=== PATIENT | female | born 1945 | race Caucasian/White ===

== ENCOUNTER 2017-01-12 12:20 | Inpatient (IN) | payer OTHER ==
[~2017-01-12] VITALS: Ht 160 cm; Wt 112.8 kg
[2017-01-12] MEDS ORDERED: SODIUM CHLORIDE 0.9% 1000ML 1,000 ML IV STA (12:37)
[2017-01-12] MEDS ORDERED: OPTIRAY 320 IV PRN ×2 (12:45→21:15)
[2017-01-12] MEDS ORDERED: ALBUT/IPRATROP 3MG/0.5MG NEB 3 ML VIAL INH ONE (13:00)
[2017-01-12 13:04] LABS: BASO % 0.2 %; BASO ABS # 0.02 K/uL (0-0.2); COMPLETE YES; EOS % 0.5 %; HEMATOCRIT 43.2 % (37-47); IG% 0.1 %; LYMPH % 11.8 %; LYMPH ABS # 1.25 K/uL (1.2-3.4); MEAN CELL VOLUME 87.4 fL (80-100); MEAN CORPUSCULAR HEMOGLOBIN 28.9 pg (25-34); MEAN CORPUSCULAR HGB CONC 33.1 g/dl (32-36); MEAN PLATELET VOLUME 9.8 fL (7.4-10.4); MONO % 8.1 %; NEUT % 79.3 %; PLATELET COUNT 162 K/uL (130-400); RED BLOOD COUNT 4.94 M/uL (4.2-5.4); WHITE BLOOD COUNT 10.58 K/uL (4.8-10.8)
[2017-01-12 13:07] LABS: ISTAT CREATININE 0.8 mg/dl (0.6-1.3); ISTAT IONIZED CALCIUM 1.11 mmol/l (1.12-1.32)
[2017-01-12 13:19] VITALS: PULSE 71; O2SAT 97
[2017-01-12 13:23] LABS: BUN/CREATININE RATIO 17.1 (10-20); CALCIUM 8.9 mg/dl (8.5-10.1); CREATININE 0.94 mg/dl (0.60-1.20); POTASSIUM 3.9 mmol/L (3.5-5.1)
[2017-01-12 13:28] LABS: ALB/GLOB RATIO 0.7 (0.9-2); CKMB/CK RATIO 0.7 (0-3.0)
--- NOTE | 2017-01-12 13:52 | EMERGENCY ROOM VISIT NOTE ---
History Report prepared by Rakan: Romelia Charlton Under the Supervision of: Dr. Brandon Campos M.D. First contact with patient: 12:29 Chief Complaint: SOB Stated Complaint: NAUSEATED,DR REFERRED Nursing Triage Summary: Patient presented to PCP office yesteday after a day long history of generalized malaise, cough, and one episode of emesis. CXR done which showed "a spot." Patient presents today with fever, nausea, diarrhea, cough, and exertional SOB. Room air saturation upon arrival to room was 82%. Patient denies any chest pain. History of Present Illness The patient is a 71 year old female who presents to the Emergency Room with complaints of constant shortness of breath for the past few days. The patient went to her PCP yesterday for shortness of breath and fever. There was a shadow on chest x-ray and she was hypoxic so her PCP called today and advised her to come to the ED for further evaluation. The patient reports that she is also feeling weak and nauseated. She has not been eating and has been having intermittent diarrhea. The patient rates her pain as a 5/10 in severity. Source of History: patient Onset: a few days ago Position: chest (respiratory) Symptom Intensity: 5/10 Quality: other (shortness of breath) Timing: worsening Associated Symptoms: + fevers, + nausea, + diarrhea, + weakness Review of Systems See HPI for pertinent positives & negatives. A total of 10 systems reviewed and were otherwise negative. Past Medical & Surgical Medical Problems: (1) Diabetes mellitus (2) Hypertension Surgical Problems: (1) History of cholecystectomy Family History Diabetes mellitus Heart disease Hypertension Lung disease Social History Smoking Status: Never Smoker Smokeless Tobacco Use: No Alcohol Use: none Marital Status: Housing Status: lives with family Occupation Status: unemployed Current/Historical Medications Scheduled Aspirin (Aspirin Ec), 325 MG PO QAM Atorvastatin (Lipitor), 80 MG PO HS Carvedilol (Coreg), 6.25 MG PO BID Clopidogrel (Plavix), 75 MG PO QAM Digoxin (Digox), 375 MCG PO QAM Famotidine (Pepcid), 20 MG PO BID Fish Oil ([place]-3), 2 CAP PO BID Furosemide (Lasix), 80 MG PO QAM Insulin Human NPH (Novolin N), 50 UNITS SQ QAM Insulin Human NPH (Novolin N), 50 UNITS SQ HS Insulin Human Regular (Novolin R), 30 UNITS SQ QAM Insulin Human Regular (Novolin R), 30 UNITS SQ DAILYBD Isosorbide Mononitrate Ext Rel (Imdur Ext Rel), 60 MG PO QAM Lisinopril (Zestril), 20 MG PO QAM Lorazepam (Ativan), 1 MG PO BID Potassium Chloride (Micro-K Ext Rel), 10 MEQ PO QAM Sertraline (Zoloft), 50 MG PO BID Allergies Coded Allergies: Adhesives (Unverified Allergy, Severe, HIVES,RASH, 01/12/17) Amoxicillin (Unverified Allergy, Severe, HIVES, 01/12/17) Cephalexin (Unverified Allergy, Severe, HIVES, 01/12/17) Clarithromycin (Unverified Allergy, Severe, HIVES, 01/12/17) Clavulanic Acid (Unverified Allergy, Severe, HIVES, 01/12/17) Metaproterenol (Unverified Allergy, Severe, HIVES, 01/12/17) Physical Exam Vital Signs Date Time Temp Pulse Resp B/P (MAP) Pulse Ox O2 Delivery O2 Flow Rate FiO2 01/12/17 17:06 94 20 89 01/12/17 17:00 179/83 01/12/17 17:00 91 16 173/83 94 Room Air 01/12/17 16:58 84 01/12/17 16:36 79 26 94 01/12/17 16:31 172/69 01/12/17 16:06 80 20 93 01/12/17 16:01 176/63 01/12/17 15:40 81 29 96 01/12/17 15:31 175/57 01/12/17 15:10 86 30 93 01/12/17 15:05 84 29 93 01/12/17 15:01 188/72 01/12/17 14:35 86 23 92 01/12/17 14:31 200/66 01/12/17 14:05 84 28 99 01/12/17 14:00 188/77 01/12/17 13:55 75 27 99 01/12/17 13:37 190/79 01/12/17 13:25 71 29 99 01/12/17 13:20 72 22 99 01/12/17 13:19 71 27 97 Nasal Cannula 4.0 01/12/17 12:58 97 Nasal Cannula 4.0 01/12/17 12:58 82 Room Air 01/12/17 12:50 74 29 96 01/12/17 12:48 73 01/12/17 12:46 205/80 01/12/17 12:23 37.4 76 18 201/74 90 Room Air Physical Exam GENERAL: Patient is a healthy-appearing well-nourished elderly female. HEAD: Normocephalic atraumatic EYES: Ocular movements intact pupils equal and react to light OROPHARYNX mucous membranes are moist no exudates present no erythema or edema present NECK: Supple no nuchal rigidity CHEST: Good equal expansion LUNGS: Clear and equal to auscultation CARDIAC: Normal S1 and S2 ABDOMEN: Soft nontender no guarding BACK: No CVA tenderness EXTREMITIES: No pain upon palpation normal muscle strength in all groups no clubbing cyanosis or edema NEURO: Patient is following commands and answering questions appropriately. Alert and oriented x3 Cranial Nerves 2-12 grossly intact Medical Decision & Procedures ER Provider Diagnostic Interpretation: Radiology results as stated below per my review and radiologist interpretation: CHEST CTA for PULMONARY ARTERIES CT DOSE: 589.72 mGycm HISTORY: Chest pain dyspnea TECHNIQUE: Multiaxial CT images of the chest were performed following the intravenous administration of contrast to evaluate the pulmonary arteries. Maximal intensity projection images were also obtained. COMPARISON STUDY: None. FINDINGS: Thoracic aorta is normal in course and caliber. Only vasculature enhances appropriately. There is a consolidative left upper lobe infiltrate versus mass. This measures 8 x 4 cm in maximum dimension and extends to potentially involve the left hilum. There are several nonspecific pretracheal and periesophageal nodes. Several aortopulmonary window nodes are also present. Largest girish dimension is 1.3 cm. Patient is status post median sternotomy. IMPRESSION: 1. Study is negative for pulmonary embolus. 2. Consolidative left upper lobe infiltrate versus mass measuring 8 x 4 cm. 3. If This does not resolve with appropriate treatment, bronchoscopy would be indicated to exclude a neoplastic process. Electronically signed by: Wang Warren M.D. 01/12/2017 2:34 PM Dictated Date/Time: 01/12/2017 2:26 PM Laboratory Results 01/12/17 12:45 Red Blood Count 4.94, Mean Corpuscular Volume 87.4, Mean Corpuscular Hemoglobin 28.9, Mean Corpuscular Hemoglobin Concent 33.1, Mean Platelet Volume 9.8, Neutrophils (%) (Auto) 79.3, Lymphocytes (%) (Auto) 11.8, Monocytes (%) (Auto) 8.1, Eosinophils (%) (Auto) 0.5, Basophils (%) (Auto) 0.2, Neutrophils # (Auto) 8.39, Lymphocytes # (Auto) 1.25, Monocytes # (Auto) 0.86, Eosinophils # (Auto) 0.05, Basophils # (Auto) 0.02 01/12/17 12:45 Test 01/12/17 12:45 01/12/17 12:54 01/12/17 15:10 White Blood Count 10.58 K/uL (4.8-10.8) Red Blood Count 4.94 M/uL (4.2-5.4) Hemoglobin 14.3 g/dL (12.0-16.0) Hematocrit 43.2 % (37-47) Mean Corpuscular Volume 87.4 fL (80-100) Mean Corpuscular Hemoglobin 28.9 pg (25-34) Mean Corpuscular Hemoglobin Concent 33.1 g/dl (32-36) Platelet Count 162 K/uL (130-400) Mean Platelet Volume 9.8 fL (7.4-10.4) Neutrophils (%) (Auto) 79.3 % Lymphocytes (%) (Auto) 11.8 % Monocytes (%) (Auto) 8.1 % Eosinophils (%) (Auto) 0.5 % Basophils (%) (Auto) 0.2 % Neutrophils # (Auto) 8.39 K/uL (1.4-6.5) Lymphocytes # (Auto) 1.25 K/uL (1.2-3.4) Monocytes # (Auto) 0.86 K/uL (0.11-0.59) Eosinophils # (Auto) 0.05 K/uL (0-0.5) Basophils # (Auto) 0.02 K/uL (0-0.2) RDW Standard Deviation 48.5 fL (36.4-46.3) RDW Coefficient of Variation 15.0 % (11.5-14.5) Immature Granulocyte % (Auto) 0.1 % Immature Granulocyte # (Auto) 0.01 K/uL (0.00-0.02) Est Creatinine Clear Calc Drug Dose 62.5 ml/min Estimated GFR () 69.8 Estimated GFR (Non- 60.2 BUN/Creatinine Ratio 17.1 (10-20) Calcium Level 8.9 mg/dl (8.5-10.1) Total Bilirubin 1.1 mg/dl (0.2-1) Aspartate Amino Transf (AST/SGOT) 28 U/L (15-37) Alanine Aminotransferase (ALT/SGPT) 28 U/L (12-78) Alkaline Phosphatase 68 U/L (45-117) Total Creatine Kinase 445 U/L (26-192) Creatine Kinase MB 3.0 ng/ml (0.5-3.6) Creatine Kinase MB Ratio 0.7 (0-3.0) Troponin I 0.039 ng/ml (0-0.045) Total Protein 7.3 gm/dl (6.4-8.2) Albumin 3.0 gm/dl (3.4-5.0) Globulin 4.3 gm/dl (2.5-4.0) Albumin/Globulin Ratio 0.7 (0.9-2) Bedside Hemoglobin 15.0 g/dl (12.0-16.0) Bedside Hematocrit 44 % (37-47) Bedside Sodium 136 mEq/L (135-144) Bedside Potassium 3.9 mEq/L (3.3-5.0) Bedside Chloride 96 mEq/L (101-112) Bedside Total CO2 30 mEq/l (24-31) Anion Gap 15.0 mmol/L (16-25) Bedside Blood Urea Nitrogen 18 mg/dl (7-18) Bedside Creatinine 0.8 mg/dl (0.6-1.3) Bedside Glucose (other) 308 mg/dl (70-99) Bedside Ionized Calcium (Mark) 1.11 mmol/l (1.12-1.32) Urine Color YELLOW Urine Appearance CLEAR (CLEAR) Urine pH 6.0 (4.5-7.5) Urine Specific Bliss 1.020 (1.000-1.030) Urine Protein 3+ (NEG) Urine Glucose (UA) 3+ (NEG) Urine Ketones NEG (NEG) Urine Occult Blood 2+ (NEG) Urine Nitrite NEG (NEG) Urine Bilirubin NEG (NEG) Urine Urobilinogen NEG (NEG) Urine Leukocyte Esterase NEG (NEG) Urine WBC (Auto) 0 /hpf (0-5) Urine RBC (Auto) 0-4 /hpf (0-4) Urine Hyaline Casts (Auto) 0 /lpf (0-5) Urine Epithelial Cells (Auto) 10-20 /lpf (0-5) Urine Bacteria (Auto) NEG (NEG) Labs reviewed by ED physician. Medications Administered Medications (Trade) Dose Ordered Sig/Alfredito Route Start Time Stop Time Status Last Admin Dose Admin Sodium Chloride 1,000 ml @ 999 mls/hr Q1H1M STAT IV 01/12/17 12:37 01/12/17 13:39 DC 01/12/17 13:04 999 MLS/HR Albuterol/ Ipratropium (Duoneb) 12 ml ONE ONCE INH 01/12/17 13:00 01/12/17 13:01 DC 01/12/17 13:18 12 ML Piperacillin Sod/ Tazobactam Sod (Zosyn Iv) 4.5 gm NOW STAT IV 01/12/17 14:43 01/12/17 14:44 DC 01/12/17 15:25 4.5 GM Levofloxacin (Levaquin / D5W) 750 mg NOW STAT IV 01/12/17 14:43 01/12/17 14:44 DC 01/12/17 15:52 750 MG ECG Indication: SOB/dyspnea Rate (beats per minute): 78 Rhythm: sinus rhythm Findings: PVC, RBBB, no acute ischemic change ED Course 1229: Past medical records reviewed. The patient was evaluated in room C2B. A complete history and physical examination was performed. 1237: NSS 1000 ml @ 999 mls/hr IV 1300: Duoneb 12 ml INH 1443: Levofloxacin 750 mg IV, Zosyn 4.5 gm IV 1507: I spoke with Dr. Keshia Low. We discussed the patient's case. The patient will be evaluated by the [facility] for further management. 1515: I reassessed the patient at this time. She is resting comfortably. I discussed the results and treatment plan with the patient and her family. I answered all pertaining questions that they had. They expressed understanding and verbalized agreement. Medical Decision Differential diagnosis: Etiologies such as infections, reactive airway disease, pneumonia, pneumothorax , COPD, CHF, cardiac ischemia, pulmonary embolism, musculoskeletal, gastrointestinal, as well as others were entertained. Medication Reconciliation: I attest that I have personally reviewed the patient' s current medication list. Blood Pressure Screening: Patient was found to have an elevated blood pressure and was referred to their primary care doctor for recheck and further treatment. This is a 71-year-old female who was sent in by her primary care physician for a CAT scan of the chest. CAT scan is concerning for what appears to be pneumonia versus a mass. The patient is hypoxic therefore she was given an hour -long breathing treatment started on antibiotics she was pancultured up. I did discuss the case with the hospitalist service who agreed to admit the patient. Patient was in agreement with the treatment plan. Consults Time Called: 1505 Consulting Physician: Dr. Keshia Low Returned Call: [address] Keshia Low. We discussed the patient's case. The patient will be evaluated by the [facility] for further management. Impression Primary Impression: Hypoxia Additional Impression: Lung mass Scribe Attestation The scribe's documentation has been prepared under my direction and personally reviewed by me in its entirety. I confirm that the note above accurately reflects all work, treatment, procedures, and medical decision making performed by me. Departure Information Dispostion Being Evaluated By Hospitalist Referrals Adam Varela MD (PCP) Patient Instructions My [facility] Health Problem Qualifiers
--- NOTE | 2017-01-12 13:52 | EMERGENCY ROOM VISIT NOTE ---
History Report prepared by Rakan: Romelia Charlton Under the Supervision of: Dr. Brandon Campos M.D. First contact with patient: 12:29 Chief Complaint: NAUSEA Stated Complaint: NAUSEATED,DR REFERRED Nursing Triage Summary: Patient presented to PCP office yesteday after a day long history of generalized malaise, cough, and one episode of emesis. CXR done which showed "a spot." Patient presents today with fever, nausea, diarrhea, cough, and exertional SOB. Room air saturation upon arrival to room was 82%. Patient denies any chest pain. History of Present Illness The patient is a 71 year old female who presents to the Emergency Room with complaints of Review of Systems See HPI for pertinent positives & negatives. A total of 10 systems reviewed and were otherwise negative. Past Medical & Surgical Medical Problems: (1) Diabetes mellitus (2) Hypertension Surgical Problems: (1) History of cholecystectomy Social History Smoking Status: Never Smoker Current/Historical Medications Scheduled Aspirin (Aspirin Ec), 325 MG PO QAM Atorvastatin (Lipitor), 80 MG PO HS Carvedilol (Coreg), 6.25 MG PO BID Clopidogrel (Plavix), 75 MG PO QAM Digoxin (Digox), 375 MCG PO QAM Famotidine (Pepcid), 20 MG PO BID Fish Oil ([place]-3), 2 CAP PO BID Furosemide (Lasix), 80 MG PO QAM Insulin Human NPH (Novolin N), 50 UNITS SQ QAM Insulin Human NPH (Novolin N), 50 UNITS SQ HS Insulin Human Regular (Novolin R), 30 UNITS SQ QAM Insulin Human Regular (Novolin R), 30 UNITS SQ DAILYBD Isosorbide Mononitrate Ext Rel (Imdur Ext Rel), 60 MG PO QAM Lisinopril (Zestril), 20 MG PO QAM Lorazepam (Ativan), 1 MG PO BID Potassium Chloride (Micro-K Ext Rel), 10 MEQ PO QAM Sertraline (Zoloft), 50 MG PO BID Allergies Coded Allergies: Adhesives (Unverified Allergy, Severe, HIVES,RASH, 01/12/17) Amoxicillin (Unverified Allergy, Severe, HIVES, 01/12/17) Cephalexin (Unverified Allergy, Severe, HIVES, 01/12/17) Clarithromycin (Unverified Allergy, Severe, HIVES, 01/12/17) Clavulanic Acid (Unverified Allergy, Severe, HIVES, 01/12/17) Metaproterenol (Unverified Allergy, Severe, HIVES, 01/12/17) Physical Exam Vital Signs Date Time Temp Pulse Resp B/P (MAP) Pulse Ox O2 Delivery O2 Flow Rate FiO2 01/12/17 13:20 72 22 99 01/12/17 13:19 71 27 97 Nasal Cannula 4.0 01/12/17 12:58 97 Nasal Cannula 4.0 01/12/17 12:58 82 Room Air 01/12/17 12:50 74 29 96 01/12/17 12:48 73 01/12/17 12:46 205/80 01/12/17 12:23 37.4 76 18 201/74 90 Room Air Physical Exam GENERAL: Patient is a healthy-appearing well-nourished elderly female. HEAD: Normocephalic atraumatic EYES: Ocular movements intact pupils equal and react to light OROPHARYNX mucous membranes are moist no exudates present no erythema or edema present NECK: Supple no nuchal rigidity CHEST: Good equal expansion LUNGS: Clear and equal to auscultation CARDIAC: Normal S1 and S2 ABDOMEN: Soft nontender no guarding BACK: No CVA tenderness EXTREMITIES: No pain upon palpation normal muscle strength in all groups no clubbing cyanosis or edema NEURO: Patient is following commands and answering questions appropriately. Alert and oriented x3 Cranial Nerves 2-12 grossly intact Medical Decision & Procedures Laboratory Results 01/12/17 12:45 Red Blood Count 4.94, Mean Corpuscular Volume 87.4, Mean Corpuscular Hemoglobin 28.9, Mean Corpuscular Hemoglobin Concent 33.1, Mean Platelet Volume 9.8, Neutrophils (%) (Auto) 79.3, Lymphocytes (%) (Auto) 11.8, Monocytes (%) (Auto) 8.1, Eosinophils (%) (Auto) 0.5, Basophils (%) (Auto) 0.2, Neutrophils # (Auto) 8.39, Lymphocytes # (Auto) 1.25, Monocytes # (Auto) 0.86, Eosinophils # (Auto) 0.05, Basophils # (Auto) 0.02 01/12/17 12:45 Test 01/12/17 12:45 01/12/17 12:54 White Blood Count 10.58 K/uL (4.8-10.8) Red Blood Count 4.94 M/uL (4.2-5.4) Hemoglobin 14.3 g/dL (12.0-16.0) Hematocrit 43.2 % (37-47) Mean Corpuscular Volume 87.4 fL (80-100) Mean Corpuscular Hemoglobin 28.9 pg (25-34) Mean Corpuscular Hemoglobin Concent 33.1 g/dl (32-36) Platelet Count 162 K/uL (130-400) Mean Platelet Volume 9.8 fL (7.4-10.4) Neutrophils (%) (Auto) 79.3 % Lymphocytes (%) (Auto) 11.8 % Monocytes (%) (Auto) 8.1 % Eosinophils (%) (Auto) 0.5 % Basophils (%) (Auto) 0.2 % Neutrophils # (Auto) 8.39 K/uL (1.4-6.5) Lymphocytes # (Auto) 1.25 K/uL (1.2-3.4) Monocytes # (Auto) 0.86 K/uL (0.11-0.59) Eosinophils # (Auto) 0.05 K/uL (0-0.5) Basophils # (Auto) 0.02 K/uL (0-0.2) RDW Standard Deviation 48.5 fL (36.4-46.3) RDW Coefficient of Variation 15.0 % (11.5-14.5) Immature Granulocyte % (Auto) 0.1 % Immature Granulocyte # (Auto) 0.01 K/uL (0.00-0.02) Est Creatinine Clear Calc Drug Dose 62.5 ml/min Estimated GFR () 69.8 Estimated GFR (Non- 60.2 BUN/Creatinine Ratio 17.1 (10-20) Calcium Level 8.9 mg/dl (8.5-10.1) Total Bilirubin 1.1 mg/dl (0.2-1) Aspartate Amino Transf (AST/SGOT) 28 U/L (15-37) Alanine Aminotransferase (ALT/SGPT) 28 U/L (12-78) Alkaline Phosphatase 68 U/L (45-117) Total Creatine Kinase 445 U/L (26-192) Creatine Kinase MB 3.0 ng/ml (0.5-3.6) Creatine Kinase MB Ratio 0.7 (0-3.0) Troponin I 0.039 ng/ml (0-0.045) Total Protein 7.3 gm/dl (6.4-8.2) Albumin 3.0 gm/dl (3.4-5.0) Globulin 4.3 gm/dl (2.5-4.0) Albumin/Globulin Ratio 0.7 (0.9-2) Bedside Hemoglobin 15.0 g/dl (12.0-16.0) Bedside Hematocrit 44 % (37-47) Bedside Sodium 136 mEq/L (135-144) Bedside Potassium 3.9 mEq/L (3.3-5.0) Bedside Chloride 96 mEq/L (101-112) Bedside Total CO2 30 mEq/l (24-31) Anion Gap 15.0 mmol/L (16-25) Bedside Blood Urea Nitrogen 18 mg/dl (7-18) Bedside Creatinine 0.8 mg/dl (0.6-1.3) Bedside Glucose (other) 308 mg/dl (70-99) Bedside Ionized Calcium (Mark) 1.11 mmol/l (1.12-1.32) Labs reviewed by ED physician. Medications Administered Medications (Trade) Dose Ordered Sig/Alfredito Route Start Time Stop Time Status Last Admin Dose Admin Sodium Chloride 1,000 ml @ 999 mls/hr Q1H1M STAT IV 01/12/17 12:37 01/12/17 13:39 DC 01/12/17 13:04 999 MLS/HR Albuterol/ Ipratropium (Duoneb) 12 ml ONE ONCE INH 01/12/17 13:00 01/12/17 13:01 DC 01/12/17 13:18 12 ML ED Course 1229: Past medical records reviewed. The patient was evaluated in room C2B. A complete history and physical examination was performed. Departure Information Referrals Adam Varela MD (PCP) Patient Instructions My [facility]
[2017-01-12] MEDS ORDERED: POTA10CA28 PO (13:53)
[2017-01-12] MEDS ORDERED: DIGO0.2519 PO (13:53)
[2017-01-12] MEDS ORDERED: OMEG10007 PO (13:53)
[2017-01-12] MEDS ORDERED: ISOS60TA25 PO (13:53)
[2017-01-12] MEDS ORDERED: FRS/80 PO (13:53)
[2017-01-12] MEDS ORDERED: CARV6.252 PO (13:53)
[2017-01-12] MEDS ORDERED: FAMO20TA11 PO (13:53)
[2017-01-12] MEDS ORDERED: CLOP1TAB15 PO (13:53)
[2017-01-12] MEDS ORDERED: NVLNI SQ ×2 (13:53)
[2017-01-12] MEDS ORDERED: RRNOVOLINR SQ (13:53)
[2017-01-12] MEDS ORDERED: ATOR-26 PO (13:53)
[2017-01-12] MEDS ORDERED: ASPI325T39 PO (13:53)
[2017-01-12] MEDS ORDERED: ATV/1 PO (13:53)
[2017-01-12] MEDS ORDERED: LISI-725 PO (13:53)
[2017-01-12] MEDS ORDERED: NVLRPUC SQ (13:53)
[2017-01-12] MEDS ORDERED: SERT50TA PO (13:53)
--- NOTE | 2017-01-12 14:35 | DIAGNOSTIC IMAGING REPORT ---
CHEST CTA for PULMONARY ARTERIES CT DOSE: 589.72 mGycm HISTORY: Chest pain dyspnea TECHNIQUE: Multiaxial CT images of the chest were performed following the intravenous administration of contrast to evaluate the pulmonary arteries. Maximal intensity projection images were also obtained. COMPARISON STUDY: None. FINDINGS: Thoracic aorta is normal in course and caliber. Only vasculature enhances appropriately. There is a consolidative left upper lobe infiltrate versus mass. This measures 8 x 4 cm in maximum dimension and extends to potentially involve the left hilum. There are several nonspecific pretracheal and periesophageal nodes. Several aortopulmonary window nodes are also present. Largest girish dimension is 1.3 cm. Patient is status post median sternotomy. IMPRESSION: 1. Study is negative for pulmonary embolus. 2. Consolidative left upper lobe infiltrate versus mass measuring 8 x 4 cm. 3. If This does not resolve with appropriate treatment, bronchoscopy would be indicated to exclude a neoplastic process. Electronically signed by: Wang Warren M.D. 01/12/2017 2:34 PM Dictated Date/Time: 01/12/2017 2:26 PM
[2017-01-12] MEDS ORDERED: PIPERACILLIN/TAZOBACTAM 4.5 GM/100ML D5W IV STA (14:43)
[2017-01-12] MEDS ORDERED: LEVAQUIN 750MG / 150ML D5W IV STA (14:43)
[2017-01-12 15:21] LABS: URINE APPEARANCE CLEAR (CLEAR); URINE BILIRUBIN NEG (NEG); URINE COLOR YELLOW; URINE NITRITE NEG (NEG); UROBILINOGEN NEG (NEG)
[2017-01-12 15:23] LABS: MANUAL MICROSCOPIC REQUIRED? NO; REVIEW REQ? NO
[2017-01-12] MEDS ORDERED: ACETAMINOPHEN 500 MG TAB PO STA (20:29)
[2017-01-12] MEDS ORDERED: ONDANSETRON INJ 2 MG/ML 2 ML VIAL IV PRN (20:30)
[2017-01-12] MEDS ORDERED: ALUMINUM/MAGNESIUM/SIMETH (MAALOX MAX) 30 ML UDC PO PRN (20:30)
[2017-01-12] MEDS ORDERED: MAGNESIUM HYDROXIDE SUSP 30 ML UDC PO PRN (20:30)
[2017-01-12] MEDS ORDERED: ACETAMINOPHEN 500 MG TAB PO ONE (20:33)
[2017-01-12 20:48] VITALS: O2SAT 96; BMI 41.8
[2017-01-12] MEDS ORDERED: LEVALBUTEROL/IPRATROPIUM NEB INH SCH (21:00)
[2017-01-12] MEDS ORDERED: VANCOMYCIN INJ 1,000 MG in SODIUM CHLORIDE 0.9% 250ML 250 ML IV SCH (21:00)
--- NOTE | 2017-01-12 21:04 | History and Physical ---
History & Physical Date & Time of Service: Jan 12, 2017 at 20:41 Chief Complaint: Nauseated,Dr Referred Primary Care Physician: Adam Varela MD History of Present Illness Source: patient, family This patient is a pleasant 71-year-old female that presents emergency department today from her primary care physician's office with complaints of fever, nausea, shortness of breath and cough that has been going on and getting progressively worse over the last 5 days. The patient denies any known history of pulmonary disease. She does note that her has been sick with a cough. She became fairly acutely ill 5 days ago. She is now having difficulty with ambulation with a shortness of breath. She did not take her temperature at home. The patient is also complaining of diarrhea that is watery. She denies any blood in her stool. She is complaining of some intermittent right upper quadrant abdominal pain that has been there for several weeks. She has not had any vomiting. She does have a very poor appetite. In the emergency department, CT of the chest was performed and shows a large left upper lobe infiltrate versus mass measuring 8 x 4 cm Past Medical/Surgical History Medical Problems: (1) Diabetes mellitus Status: Chronic (2) Hypertension Status: Chronic Coronary artery disease status post CABG in 1999. Patient also has cardiac stents. Frequent falls over the last several months Status post cholecystectomy Surgical Problems: (1) History of cholecystectomy Status: Resolved Family History Diabetes mellitus Heart disease Hypertension Lung disease Social History Smoking Status: Never Smoker Smokeless Tobacco Use: No Marital Status: Housing status: lives with family Occupational Status: unemployed Allergies Coded Allergies: Adhesives (Verified Allergy, Severe, HIVES,RASH, 01/12/17) Amoxicillin (Verified Allergy, Severe, HIVES, 01/12/17) Cephalexin (Verified Allergy, Severe, HIVES, 01/12/17) Clarithromycin (Verified Allergy, Severe, HIVES, 01/12/17) Clavulanic Acid (Verified Allergy, Severe, HIVES, 01/12/17) Metaproterenol (Verified Allergy, Severe, HIVES, 01/12/17) Home Medications Scheduled Aspirin (Aspirin Ec), 325 MG PO QAM Atorvastatin (Lipitor), 80 MG PO HS Carvedilol (Coreg), 6.25 MG PO BID Clopidogrel (Plavix), 75 MG PO QAM Digoxin (Digox), 375 MCG PO QAM Famotidine (Pepcid), 20 MG PO BID Fish Oil (Dawson-3), 2 CAP PO BID Furosemide (Lasix), 80 MG PO QAM Insulin Human NPH (Novolin N), 50 UNITS SQ QAM Insulin Human NPH (Novolin N), 50 UNITS SQ HS Insulin Human Regular (Novolin R), 30 UNITS SQ QAM Insulin Human Regular (Novolin R), 30 UNITS SQ DAILYBD Isosorbide Mononitrate Ext Rel (Imdur Ext Rel), 60 MG PO QAM Lisinopril (Zestril), 20 MG PO QAM Lorazepam (Ativan), 1 MG PO BID Potassium Chloride (Micro-K Ext Rel), 10 MEQ PO QAM Sertraline (Zoloft), 50 MG PO BID Review of Systems 10 system review performed and negative unless noted in HPI or below Physical Exam Vital Signs Date Time Temp Pulse Resp B/P (MAP) Pulse Ox O2 Delivery O2 Flow Rate FiO2 01/12/17 19:41 73 36 96 01/12/17 19:31 187/69 01/12/17 19:11 75 20 95 01/12/17 19:01 168/62 01/12/17 18:41 83 35 95 01/12/17 18:31 171/74 01/12/17 18:11 84 25 94 01/12/17 18:01 200/84 01/12/17 17:41 76 29 94 01/12/17 17:31 205/67 01/12/17 17:11 80 27 01/12/17 17:06 94 20 89 01/12/17 17:00 179/83 01/12/17 17:00 91 16 173/83 94 Room Air 01/12/17 16:58 84 01/12/17 16:36 79 26 94 01/12/17 16:31 172/69 01/12/17 16:06 80 20 93 01/12/17 16:01 176/63 01/12/17 15:40 81 29 96 01/12/17 15:31 175/57 01/12/17 15:10 86 30 93 01/12/17 15:05 84 29 93 01/12/17 15:01 188/72 01/12/17 14:35 86 23 92 01/12/17 14:31 200/66 01/12/17 14:05 84 28 99 01/12/17 14:00 188/77 01/12/17 13:55 75 27 99 01/12/17 13:37 190/79 01/12/17 13:25 71 29 99 01/12/17 13:20 72 22 99 01/12/17 13:19 71 27 97 Nasal Cannula 4.0 01/12/17 12:58 97 Nasal Cannula 4.0 01/12/17 12:58 82 Room Air 01/12/17 12:50 74 29 96 01/12/17 12:48 73 01/12/17 12:46 205/80 01/12/17 12:23 37.4 76 18 201/74 90 Room Air General Appearance: + pertinent finding (acutely ill in appearance.) Head: normocephalic Eyes: EOMI ENT: + pertinent finding (oral mucosa dry.) Neck: no JVD Respiratory/Chest: + pertinent finding (few rhonchi noted the left upper lung perez. Otherwise clear. Positive tachypnea.) Cardiovascular: + tachycardia (occasionally irregular.) Abdomen/GI: normal bowel sounds, soft, + pertinent finding (ventral hernia noted. Reducible and nontender. Mild tenderness to deep palpation in the right upper quadrant without any guarding or rebound. Negative Hernandez sign.) Extremities/Musculoskelatal: + pertinent finding (trace pitting edema in the lower extremities bilaterally. No erythema, tenderness or warmth appreciated.) Neurologic/Psych: no motor/sensory deficits, oriented x 3 Skin: warm/dry, + pertinent finding (skin is warm to touch. Erythematous areas noted without odor in the skin folds) Diagnostics Laboratory Results Results Past 24 Hours Test 01/12/17 12:45 01/12/17 12:54 01/12/17 15:10 Range/Units White Blood Count 10.58 4.8-10.8 K/uL Red Blood Count 4.94 4.2-5.4 M/uL Hemoglobin 14.3 12.0-16.0 g/dL Hematocrit 43.2 37-47 % Mean Corpuscular Volume 87.4 80-100 fL Mean Corpuscular Hemoglobin 28.9 25-34 pg Mean Corpuscular Hemoglobin Concent 33.1 32-36 g/dl Platelet Count 162 130-400 K/uL Mean Platelet Volume 9.8 7.4-10.4 fL Neutrophils (%) (Auto) 79.3 % Lymphocytes (%) (Auto) 11.8 % Monocytes (%) (Auto) 8.1 % Eosinophils (%) (Auto) 0.5 % Basophils (%) (Auto) 0.2 % Neutrophils # (Auto) 8.39 1.4-6.5 K/uL Lymphocytes # (Auto) 1.25 1.2-3.4 K/uL Monocytes # (Auto) 0.86 0.11-0.59 K/uL Eosinophils # (Auto) 0.05 0-0.5 K/uL Basophils # (Auto) 0.02 0-0.2 K/uL RDW Standard Deviation 48.5 36.4-46.3 fL RDW Coefficient of Variation 15.0 11.5-14.5 % Immature Granulocyte % (Auto) 0.1 % Immature Granulocyte # (Auto) 0.01 0.00-0.02 K/uL Sodium Level 136 136-145 mmol/L Potassium Level 3.9 3.5-5.1 mmol/L Chloride Level 100 98-107 mmol/L Carbon Dioxide Level 28 21-32 mmol/L Anion Gap 8.0 15.0 16-25 mmol/L Blood Urea Nitrogen 16 7-18 mg/dl Creatinine 0.94 0.60-1.20 mg/dl Est Creatinine Clear Calc Drug Dose 62.5 ml/min Estimated GFR () 69.8 Estimated GFR (Non- 60.2 BUN/Creatinine Ratio 17.1 10-20 Random Glucose 300 70-99 mg/dl Calcium Level 8.9 8.5-10.1 mg/dl Total Bilirubin 1.1 0.2-1 mg/dl Aspartate Amino Transf (AST/SGOT) 28 15-37 U/L Alanine Aminotransferase (ALT/SGPT) 28 12-78 U/L Alkaline Phosphatase 68 45-117 U/L Total Creatine Kinase 445 26-192 U/L Creatine Kinase MB 3.0 0.5-3.6 ng/ml Creatine Kinase MB Ratio 0.7 0-3.0 Troponin I 0.039 0-0.045 ng/ml Total Protein 7.3 6.4-8.2 gm/dl Albumin 3.0 3.4-5.0 gm/dl Globulin 4.3 2.5-4.0 gm/dl Albumin/Globulin Ratio 0.7 0.9-2 Bedside Hemoglobin 15.0 12.0-16.0 g/dl Bedside Hematocrit 44 37-47 % Bedside Sodium 136 135-144 mEq/L Bedside Potassium 3.9 3.3-5.0 mEq/L Bedside Chloride 96 101-112 mEq/L Bedside Total CO2 30 24-31 mEq/l Bedside Blood Urea Nitrogen 18 7-18 mg/dl Bedside Creatinine 0.8 0.6-1.3 mg/dl Bedside Glucose (other) 308 70-99 mg/dl Bedside Ionized Calcium (Mark) 1.11 1.12-1.32 mmol/l Urine Color YELLOW Urine Appearance CLEAR CLEAR Urine pH 6.0 4.5-7.5 Urine Specific [place] 1.020 1.000-1.030 Urine Protein 3+ NEG Urine Glucose (UA) 3+ NEG Urine Ketones NEG NEG Urine Occult Blood 2+ NEG Urine Nitrite NEG NEG Urine Bilirubin NEG NEG Urine Urobilinogen NEG NEG Urine Leukocyte Esterase NEG NEG Urine WBC (Auto) 0 0-5 /hpf Urine RBC (Auto) 0-4 0-4 /hpf Urine Hyaline Casts (Auto) 0 0-5 /lpf Urine Epithelial Cells (Auto) 10-20 0-5 /lpf Urine Bacteria (Auto) NEG NEG Microbiology Results 01/12/17 Blood Culture, Received Pending 01/12/17 Blood Culture, Received Pending Diagnostic Radiology Patient Name: ANIKA ALMODOVAR Unit Number: [id number] Dictated: 01/12/171425 Transcribed: 01/12/17 142 MS Printed Date/Time: [~ rep prt dt]/[~ rep prt tm] [~ rep ct labl] - [~ rep ct ivnm] [facility] [place] [address] Dictated: 01/12/171425 Transcribed: 01/12/17 1426 MS Printed Date/Time: [~ rep prt dt]/[~ rep prt tm] [~ rep ct labl] - [~ rep ct ivnm] Patient: ANIKA ALMODOVAR Address1: [address] [place] [address] Rec: [id number] Address2: Acct ID: [id number] [facility] Zip: [place] [address] Date: 1945 Sex: F Room/Bed: Ref Phy: Adam Varela MD [place]: [facility] Att Phy: Report #: [id number] Robyn Phy: Adam Varela MD Test: CXPEA Admit Phy: Agriculture Scientist: EVANGELISTA Interpreting Phy: Wang Warren M.D. Diagnosis: NAUSEATED,DR REFERRED Ordering Phy: Brandon Campos MD Service Date: 01/12/17 Admit Date: 01/12/17 MNE: [id number] CONF: DICTATED BY: Wang Warren M.D.]] CC: Adam Varela MD Finnerty, Kevin M., MD Endcc: [~ rep ct add3]] CHEST CTA for PULMONARY ARTERIES CT DOSE: 589.72 mGycm HISTORY: Chest pain dyspnea TECHNIQUE: Multiaxial CT images of the chest were performed following the intravenous administration of contrast to evaluate the pulmonary arteries. Maximal intensity projection images were also obtained. COMPARISON STUDY: None. FINDINGS: Thoracic aorta is normal in course and caliber. Only vasculature enhances appropriately. There is a consolidative left upper lobe infiltrate versus mass. This measures 8 x 4 cm in maximum dimension and extends to potentially involve the left hilum. There are several nonspecific pretracheal and periesophageal nodes. Several aortopulmonary window nodes are also present. Largest girish dimension is 1.3 cm. Patient is status post median sternotomy. IMPRESSION: 1. Study is negative for pulmonary embolus. 2. Consolidative left upper lobe infiltrate versus mass measuring 8 x 4 cm. 3. If This does not resolve with appropriate treatment, bronchoscopy would be indicated to exclude a neoplastic process. Electronically signed by: Wang Warren M.D. 01/12/2017 2:34 PM Dictated Date/Time: 01/12/2017 2:26 PM The status of this report is Signed. Draft = Not yet reviewed or approved by Radiologist. Signed = Reviewed and approved by Radiologist. <AttendingPhy></AttendingPhy> <FamilyPhy>Adam Varela MD</FamilyPhy> < PrimaryPhy>Adam Varela MD</PrimaryPhy> <UnitNumber>[id number]</UnitNumber> <VisitNumber>[id number]</VisitNumber> <PatientName>NISHIANIKA</PatientName> <DateOfBirth>1945</DateOfBirth> <Location>[facility]</Location> <ServiceDate></ServiceDate> <MNE>ESINDI</MNE> <OrderingPhy>Brandon Campos MD</ OrderingPhy> <OrderingPhyMNE>f rep ord dr navarro</OrderingPhyMNE> <DictatingPhyMNE> f rep dict dr navarro</DictatingPhyMNE> <CCListMNE>f rep ct brycee</CCListMNE> < AdmittingPhyMNE>f pt admit dr navarro</AdmittingPhyMNE> <AttendingPhyMNE>f pt attend dr navarro</AttendingPhyMNE> <ConsultingPhyMNE>f pt consult dr navarro</ConsultingPhyMNE> <FamilyPhyMNE>f pt fam dr navarro</FamilyPhyMNE> <OtherPhyMNE>f pt other dr navarro</OtherPhyMNE> < PrimaryPhyMNE>f pt prim care dr navarro</PrimaryPhyMNE> <ReferringPhyMNE>f pt referring dr anvarro</ReferringPhyMNE> EKG Normal sinus rhythm Rate 75 bpm Right bundle branch block noted Q waves in the inferior leads No prior for comparison Impression Assessment and Plan 71-year-old female presents to the emergency department with complaints of cough , fever, shortness of breath, nausea, abdominal pain and diarrhea. Imaging in the emergency department reveals an 8 x 4 cm infiltrate versus mass in the left upper lobe. Patient was treated with broad-spectrum antibiotics and IV fluids in the ED Acute hypoxic respiratory failure-? possible community acquired PNA with questionable underlying mass -Admit to telemetry -Continue levaquin and zosyn -Add Vancomycin -Xopenex/Atrovent nebs q 6 h -tylenol prn -NS @ 200 cc/hr x 1 liter then maintenance IVF -f/u blood cx -sputum cx -pulmonary consult -ID consult -follow CBC ?Abdominal pain nausea and diarrhea -stool cx, c diff sent -CT abd/pelvis tomorrow as pt already received IV dye with CTA today-->ordered Coronary artery disease-no signs of angina -Continue Coreg 6.25 mg twice daily, aspirin 325 mg daily, Lipitor 80 mg daily, Plavix 75 mg daily, lisinopril 20 mg daily, Imdur ER 60 mg daily ?A fib -Continue Digoxin 375 mcg daily diabetes mellitus -follow BSGs AC, HS and with meals -insulin sliding scale -check HgbA1C Cori dermatitis -Nystatin powder BID to skin folds Depression -Continue Zoloft 50 mg BID DVT prophylaxis -Lovenox 40 mg subQ daily -TEDS, SCDs CODE STATUS -LEVEL I FULL CODE This chart was completed in part utilizing Appear Speech Voice Recognition software. Attempts were made to minimize the grammatical errors, random word insertions, pronoun errors and incomplete sentences. Any formal questions or concerns about the content, text or information contained within the body of this dictation should be directly addressed to the provider for clarification. I personally and independently interviewed and examined the patient I reviewed labs and imaging I agree with above mentioned physical exam, History and ROS I discussed and formulated the assessment and plan with Mrs. Wolfe 71-year-old female P/W cough, fever, SOB, abdominal pain and diarrhea. Imaging in the emergency department reveals an 8 x 4 cm infiltrate versus mass in the left upper lobe. ROS aside from what is mentioned above, the rest of ROS is negative Physical exam; obese in moderate distress B/L rhonchi decrease air entry both lungs Assessment: 8 x 4 cm infiltrate versus mass in the left upper lobe. possible mass with post obstructive pneumonia diarrhea abdominal pain Plan: continue Abx pulm consult for a bronch sputum Cx due to the abdominal pain will do CT abd w contrast stool studies Leonor Low [facility] [place] hospitalist VTE Prophylaxis VTE Risk Assessment Done? Y/N: Yes Risk Level: Moderate Given or contraindicated: Enoxaparin (Lovenox)SQ, T.E.D. Stockings, SCD's
[2017-01-12 21:49] VITALS: BP 172/57; PULSE 69; TEMP 38; O2SAT 94
[2017-01-12] MEDS ORDERED: VANCOMYCIN INJ 2,000 MG in SODIUM CHLORIDE 0.9% 500ML 500 ML IV SCH (22:00)
[2017-01-12] MEDS ORDERED: VANCOMYCIN CONSULT ACTIVE PRN (22:00)
[2017-01-12] MEDS ORDERED: SODIUM CHLORIDE 0.9% 1000ML 1,000 ML IV SCH (22:00)
[2017-01-12] MEDS ORDERED: NURSING VERBAL MED ORDER ONE (22:00)
[2017-01-12 22:31] VITALS: BP 175/70; PULSE 66; TEMP 37; O2SAT 92
[2017-01-12] MEDS: LORAZEPAM 1 MG TAB PO SCH (22:40)
[2017-01-12] MEDS: INSULIN ASPART 100 UNITS/ML 3 ML PEN SC SCH (22:40)
[2017-01-12 23:52] VITALS: BP 166/69; PULSE 68; TEMP 36.9; O2SAT 93
[2017-01-13] VITALS (12 sets, daily range): BP systolic 110–188; BP diastolic 50–91; PULSE 63–87; TEMP 37–38.3; O2SAT 92–96
[2017-01-13] MEDS ORDERED: INSULIN HUMAN REGULAR PER UNIT 9 UNITS in SYRINGE 8.91 ML IV STA (00:32)
[2017-01-13] MEDS: INSULIN ASPART 100 UNITS/ML 3 ML PEN SC SCH ×7 (01:37→20:57)
[2017-01-13] MEDS: LEVALBUTEROL 1.25MG/0.5ML NEB INH SCH ×4 (01:41→19:55)
[2017-01-13] MEDS: IPRATROPIUM BROMIDE NEB SOLN 0.02% 2.5 ML VIAL INH SCH ×4 (01:41→19:55)
[2017-01-13] MEDS ORDERED: PIPERACILL/TAZOBAC CONSULT ACTIVE PRN (02:15)
[2017-01-13] MEDS: PIPERACILL/TAZOBAC IV 4.5 GM in DEXTROSE 5% 100ML 100 ML IV SCH ×3 (02:32→18:03)
[2017-01-13] MEDS: NSS + 20MEQ KCL 1000ML 1,000 ML IV SCH ×2 (04:27→15:30)
[2017-01-13 06:08] LABS: BASO % 0.2 %; BASO ABS # 0.02 K/uL (0-0.2); COMPLETE YES; EOS % 0.7 %; HEMATOCRIT 40.6 % (37-47); IG% 0.1 %; LYMPH % 12.4 %; LYMPH ABS # 1.04 K/uL (1.2-3.4); MEAN CORPUSCULAR HEMOGLOBIN 27.6 pg (25-34); MEAN PLATELET VOLUME 9.4 fL (7.4-10.4); MONO % 9.4 %; NEUT % 77.2 %; PLATELET COUNT 154 K/uL (130-400); RED BLOOD COUNT 4.56 M/uL (4.2-5.4); WHITE BLOOD COUNT 8.38 K/uL (4.8-10.8)
[2017-01-13 06:16] LABS: INR 1.1 (0.9-1.1); PARTIAL THROMBOPLASTIN RATIO 1.1; PROTHROMBIN TIME (PATIENT) 11.4 SECONDS (9.0-12.0)
[2017-01-13 06:34] LABS: BUN/CREATININE RATIO 15.8 (10-20); CALCIUM 7.9 mg/dl (8.5-10.1); CREATININE 0.87 mg/dl (0.60-1.20); POTASSIUM 4.1 mmol/L (3.5-5.1)
[2017-01-13] MEDS: LACTOBACILLUS ACIDOPHILUS 1 GM PACK PO SCH ×3 (07:30→17:09)
[2017-01-13 07:46] LABS: ESTIMATED AVERAGE GLUCOSE 180 mg/dl; HA1C FLAG Normal (Normal)
[2017-01-13] MEDS: NYSTATIN POWDER 15GM BTL EXT SCH ×2 (07:52→20:53)
--- NOTE | 2017-01-13 07:52 | Pharmacy Progress Note ---
Pharmacy Antibiotic Consult Date of Service: Jan 13, 2017. Pharmacy Dosing Scope Pharmacy is consulted to initiate VANCOMYCIN IV dosing therapy, order appropriate labs and adjust drug dose/frequency. Subjective The patient is a 71 year old female admitted on Jan 12, 2017 at 20:40. Objective Height (Feet): 5 Height (Inches): 3.00 Weight (Kilograms): 109.500 Lab Results (24hrs): Test 01/12/17 12:45 01/12/17 12:54 01/12/17 15:10 01/12/17 21:45 White Blood Count 10.58 K/uL (4.8-10.8) Red Blood Count 4.94 M/uL (4.2-5.4) Hemoglobin 14.3 g/dL (12.0-16.0) Hematocrit 43.2 % (37-47) Mean Corpuscular Volume 87.4 fL (80-100) Mean Corpuscular Hemoglobin 28.9 pg (25-34) Mean Corpuscular Hemoglobin Concent 33.1 g/dl (32-36) Platelet Count 162 K/uL (130-400) Mean Platelet Volume 9.8 fL (7.4-10.4) Neutrophils (%) (Auto) 79.3 % Lymphocytes (%) (Auto) 11.8 % Monocytes (%) (Auto) 8.1 % Eosinophils (%) (Auto) 0.5 % Basophils (%) (Auto) 0.2 % Neutrophils # (Auto) 8.39 K/uL (1.4-6.5) Lymphocytes # (Auto) 1.25 K/uL (1.2-3.4) Monocytes # (Auto) 0.86 K/uL (0.11-0.59) Eosinophils # (Auto) 0.05 K/uL (0-0.5) Basophils # (Auto) 0.02 K/uL (0-0.2) RDW Standard Deviation 48.5 fL (36.4-46.3) RDW Coefficient of Variation 15.0 % (11.5-14.5) Immature Granulocyte % (Auto) 0.1 % Immature Granulocyte # (Auto) 0.01 K/uL (0.00-0.02) Sodium Level 136 mmol/L (136-145) Potassium Level 3.9 mmol/L (3.5-5.1) Chloride Level 100 mmol/L (98-107) Carbon Dioxide Level 28 mmol/L (21-32) Blood Urea Nitrogen 16 mg/dl (7-18) Creatinine 0.94 mg/dl (0.60-1.20) Est Creatinine Clear Calc Drug Dose 62.5 ml/min Estimated GFR () 69.8 Estimated GFR (Non- 60.2 BUN/Creatinine Ratio 17.1 (10-20) Random Glucose 300 mg/dl (70-99) Calcium Level 8.9 mg/dl (8.5-10.1) Total Bilirubin 1.1 mg/dl (0.2-1) Aspartate Amino Transf (AST/SGOT) 28 U/L (15-37) Alanine Aminotransferase (ALT/SGPT) 28 U/L (12-78) Alkaline Phosphatase 68 U/L (45-117) Total Creatine Kinase 445 U/L (26-192) Creatine Kinase MB 3.0 ng/ml (0.5-3.6) Creatine Kinase MB Ratio 0.7 (0-3.0) Troponin I 0.039 ng/ml (0-0.045) Total Protein 7.3 gm/dl (6.4-8.2) Albumin 3.0 gm/dl (3.4-5.0) Globulin 4.3 gm/dl (2.5-4.0) Albumin/Globulin Ratio 0.7 (0.9-2) Bedside Hemoglobin 15.0 g/dl (12.0-16.0) Bedside Hematocrit 44 % (37-47) Bedside Sodium 136 mEq/L (135-144) Bedside Potassium 3.9 mEq/L (3.3-5.0) Bedside Chloride 96 mEq/L (101-112) Bedside Total CO2 30 mEq/l (24-31) Anion Gap 15.0 mmol/L (16-25) Bedside Blood Urea Nitrogen 18 mg/dl (7-18) Bedside Creatinine 0.8 mg/dl (0.6-1.3) Bedside Glucose (other) 308 mg/dl (70-99) Bedside Ionized Calcium (Mark) 1.11 mmol/l (1.12-1.32) Urine Color YELLOW Urine Appearance CLEAR (CLEAR) Urine pH 6.0 (4.5-7.5) Urine Specific [place] 1.020 (1.000-1.030) Urine Protein 3+ (NEG) Urine Glucose (UA) 3+ (NEG) Urine Ketones NEG (NEG) Urine Occult Blood 2+ (NEG) Urine Nitrite NEG (NEG) Urine Bilirubin NEG (NEG) Urine Urobilinogen NEG (NEG) Urine Leukocyte Esterase NEG (NEG) Urine WBC (Auto) 0 /hpf (0-5) Urine RBC (Auto) 0-4 /hpf (0-4) Urine Hyaline Casts (Auto) 0 /lpf (0-5) Urine Epithelial Cells (Auto) 10-20 /lpf (0-5) Urine Bacteria (Auto) NEG (NEG) Digoxin Level 1.5 ng/ml (0.8-2.0) Test 01/13/17 04:25 01/13/17 05:15 01/13/17 06:33 Bedside Glucose 241 mg/dl (70-90) 226 mg/dl (70-90) White Blood Count 8.38 K/uL (4.8-10.8) Red Blood Count 4.56 M/uL (4.2-5.4) Hemoglobin 12.6 g/dL (12.0-16.0) Hematocrit 40.6 % (37-47) Mean Corpuscular Volume 89.0 fL (80-100) Mean Corpuscular Hemoglobin 27.6 pg (25-34) Mean Corpuscular Hemoglobin Concent 31.0 g/dl (32-36) Platelet Count 154 K/uL (130-400) Mean Platelet Volume 9.4 fL (7.4-10.4) Neutrophils (%) (Auto) 77.2 % Lymphocytes (%) (Auto) 12.4 % Monocytes (%) (Auto) 9.4 % Eosinophils (%) (Auto) 0.7 % Basophils (%) (Auto) 0.2 % Neutrophils # (Auto) 6.46 K/uL (1.4-6.5) Lymphocytes # (Auto) 1.04 K/uL (1.2-3.4) Monocytes # (Auto) 0.79 K/uL (0.11-0.59) Eosinophils # (Auto) 0.06 K/uL (0-0.5) Basophils # (Auto) 0.02 K/uL (0-0.2) RDW Standard Deviation 49.2 fL (36.4-46.3) RDW Coefficient of Variation 15.1 % (11.5-14.5) Immature Granulocyte % (Auto) 0.1 % Immature Granulocyte # (Auto) 0.01 K/uL (0.00-0.02) Prothrombin Time 11.4 SECONDS (9.0-12.0) Prothromb Time International Ratio 1.1 (0.9-1.1) Activated Partial Thromboplast Time 27.4 SECONDS (21.0-31.0) Partial Thromboplastin Ratio 1.1 Sodium Level 142 mmol/L (136-145) Potassium Level 4.1 mmol/L (3.5-5.1) Chloride Level 105 mmol/L (98-107) Carbon Dioxide Level 32 mmol/L (21-32) Anion Gap 5.0 mmol/L (3-11) Blood Urea Nitrogen 14 mg/dl (7-18) Creatinine 0.87 mg/dl (0.60-1.20) Est Creatinine Clear Calc Drug Dose 68.4 ml/min Estimated GFR () 76.6 Estimated GFR (Non- 66.1 BUN/Creatinine Ratio 15.8 (10-20) Random Glucose 227 mg/dl (70-99) Calcium Level 7.9 mg/dl (8.5-10.1) Micro Results: * 01/12/17 -- Blood Cx x 2 -- pending Recent Pertinent Medications Item Value Date Time Levofloxacin 750 100 ml @ 100 mls/hr 01/13/17 1400 mg/Prmx Q24H/IV Piperacillin Sod/ 120 ml @ 30 mls/hr 01/13/17 0200 Tazobactam Sod Q8H/IV 01/13/17 0232 4.5 gm/Dextrose Assessment & Plan 71yo female ordered VANCOMYCIN / LEVAQUIN / ZOSYN for PNA. Renal function is good (SCr 0.87, CrCl ~87 ml/min). VANCOMYCIN: * Loading dose: VANCOMYCIN 2000mg (~18mg/kg) IV X 1 dose then VANCOMYCIN 1500mg (~13.5mg/kg) IV every 16 hours. * Estimated Pk parameters: Vd ~0.6 L/kg ke ~0.061 t1/2 ~12 hours * Goal trough level estimate: between 15 - 20 mcg/mL. * Trough level has been ordered for: @ 1800. Pharmacy will continue to follow and will adjust dose/frequency as necessary. Thank you
[2017-01-13] MEDS: CARVEDILOL 6.25 MG TAB PO SCH ×2 (07:54→20:37)
[2017-01-13] MEDS: ISOSORBIDE MONONITRATE 60 MG TABCR PO SCH (07:55)
[2017-01-13] MEDS: LISINOPRIL 20 MG TAB PO SCH (07:55)
[2017-01-13] MEDS: LORAZEPAM 1 MG TAB PO SCH ×2 (07:55→20:35)
[2017-01-13] MEDS: FAMOTIDINE 20 MG TAB PO SCH ×2 (07:56→20:37)
[2017-01-13] MEDS: CLOPIDOGREL BISULFATE 75 MG TAB PO SCH (07:56)
[2017-01-13] MEDS: SERTRALINE HCL 50 MG TAB PO SCH ×2 (07:56→20:38)
[2017-01-13] MEDS: ENOXAPARIN 40 MG/0.4 ML SYR SC SCH (07:57)
[2017-01-13] MEDS: ASPIRIN 325 MG ECTAB PO SCH (07:57)
--- NOTE | 2017-01-13 08:27 | Hospitalist Progress Note ---
Hospitalist Progress Note Date of Service Jan 13, 2017. (Feli Gutierrez PA-C) Subjective Pt evaluation today including: conversation w/ patient, physical exam, chart review, lab review, review of studies Pain: None PO Intake: Good Voiding: no voiding problems The patient was seen and examined this morning. Pt reports doing well today, her breathing has improved, pt is still having a productive cough with brown- yellow-green mucous, and requiring 2 L O2 via NC at all times. She had abd pain which preceeded a large loose bowel movement x 2. She denies nausea or vomiting and has been tolerating diet without difficult. She is edentulous and does report having difficulty with consuming/chewing some of the foods here. She denies fevers, chills or sweats, chest pain, palpitations, sob, fatigue, rash or itch. ROS: 6 point ROS reviewed and otherwise negative (Feli Gutierrez PA-C) Objective Vital Signs Date Time Temp Pulse Resp B/P (MAP) Pulse Ox O2 Delivery O2 Flow Rate FiO2 01/13/17 07:37 37.3 68 20 188/60 (102) 95 Nasal Cannula 2.0 188/91 (123) 01/13/17 04:40 37.4 74 18 174/50 (91) 96 Nasal Cannula 01/13/17 04:00 Nasal Cannula 2.0 01/13/17 01:41 67 18 93 Nasal Cannula 2.0 01/12/17 23:59 Nasal Cannula 2.0 01/12/17 23:52 36.9 68 18 166/69 (101) 93 Nasal Cannula 01/12/17 22:31 37.0 66 22 175/70 (105) 92 Nasal Cannula 2.0 01/12/17 21:49 38.0 69 18 172/57 (95) 94 Nasal Cannula 2.0 01/12/17 21:01 158/44 01/12/17 20:59 72 01/12/17 20:48 96 Nasal Cannula 4.0 01/12/17 20:46 71 25 93 01/12/17 20:40 37.8 01/12/17 20:16 76 18 94 01/12/17 20:01 187/75 01/12/17 19:46 73 30 94 01/12/17 19:41 73 36 96 01/12/17 19:31 187/69 01/12/17 19:11 75 20 95 01/12/17 19:01 168/62 01/12/17 18:41 83 35 95 01/12/17 18:31 171/74 01/12/17 18:11 84 25 94 01/12/17 18:01 200/84 01/12/17 17:41 76 29 94 01/12/17 17:31 205/67 01/12/17 17:11 80 27 01/12/17 17:06 94 20 89 01/12/17 17:00 179/83 01/12/17 17:00 91 16 173/83 94 Room Air 01/12/17 16:58 84 01/12/17 16:36 79 26 94 01/12/17 16:31 172/69 01/12/17 16:06 80 20 93 01/12/17 16:01 176/63 01/12/17 15:40 81 29 96 01/12/17 15:31 175/57 01/12/17 15:10 86 30 93 01/12/17 15:05 84 29 93 01/12/17 15:01 188/72 01/12/17 14:35 86 23 92 01/12/17 14:31 200/66 01/12/17 14:05 84 28 99 01/12/17 14:00 188/77 01/12/17 13:55 75 27 99 01/12/17 13:37 190/79 01/12/17 13:25 71 29 99 01/12/17 13:20 72 22 99 01/12/17 13:19 71 27 97 Nasal Cannula 4.0 01/12/17 12:58 97 Nasal Cannula 4.0 01/12/17 12:58 82 Room Air 01/12/17 12:50 74 29 96 01/12/17 12:48 73 01/12/17 12:46 205/80 01/12/17 12:23 37.4 76 18 201/74 90 Room Air (Feli Gutierrez, NENITAC) Physical Exam General Appearance: WD/WN, no apparent distress, + obese Eyes: PERRL, EOMI ENT: hearing grossly normal, pharynx normal, + pertinent finding (endentulous, MMM) Neck: supple, no JVD Respiratory/Chest: no accessory muscle use, + pertinent finding (on 2 L via NC , +faint crackles in the left base, and diminished breath sounds in the BERNICE, no adventitious breath sounds otherwise. ) Cardiovascular: regular rate, rhythm, + systolic murmur (grade II/) Abdomen: normal bowel sounds, non tender, soft, no organomegaly Extremities: non-tender, + pedal edema (pitting 1+, slightly worse on the left compared to the right.) Neurologic/Psychiatric: alert, normal mood/affect, oriented x 3 Skin: normal color, warm/dry (Feli Gutierrez, AMINATA) Laboratory Results Last 24 Hours Test 01/12/17 12:45 01/12/17 12:54 01/12/17 15:10 01/12/17 21:25 White Blood Count 10.58 K/uL Red Blood Count 4.94 M/uL Hemoglobin 14.3 g/dL Hematocrit 43.2 % Mean Corpuscular Volume 87.4 fL Mean Corpuscular Hemoglobin 28.9 pg Mean Corpuscular Hemoglobin Concent 33.1 g/dl Platelet Count 162 K/uL Mean Platelet Volume 9.8 fL Neutrophils (%) (Auto) 79.3 % Lymphocytes (%) (Auto) 11.8 % Monocytes (%) (Auto) 8.1 % Eosinophils (%) (Auto) 0.5 % Basophils (%) (Auto) 0.2 % Neutrophils # (Auto) 8.39 K/uL Lymphocytes # (Auto) 1.25 K/uL Monocytes # (Auto) 0.86 K/uL Eosinophils # (Auto) 0.05 K/uL Basophils # (Auto) 0.02 K/uL RDW Standard Deviation 48.5 fL RDW Coefficient of Variation 15.0 % Immature Granulocyte % (Auto) 0.1 % Immature Granulocyte # (Auto) 0.01 K/uL Sodium Level 136 mmol/L Potassium Level 3.9 mmol/L Chloride Level 100 mmol/L Carbon Dioxide Level 28 mmol/L Anion Gap 8.0 mmol/L 15.0 mmol/L Blood Urea Nitrogen 16 mg/dl Creatinine 0.94 mg/dl Est Creatinine Clear Calc Drug Dose 62.5 ml/min Estimated GFR () 69.8 Estimated GFR (Non- 60.2 BUN/Creatinine Ratio 17.1 Random Glucose 300 mg/dl Calcium Level 8.9 mg/dl Total Bilirubin 1.1 mg/dl Aspartate Amino Transf (AST/SGOT) 28 U/L Alanine Aminotransferase (ALT/SGPT) 28 U/L Alkaline Phosphatase 68 U/L Total Creatine Kinase 445 U/L Creatine Kinase MB 3.0 ng/ml Creatine Kinase MB Ratio 0.7 Troponin I 0.039 ng/ml Total Protein 7.3 gm/dl Albumin 3.0 gm/dl Globulin 4.3 gm/dl Albumin/Globulin Ratio 0.7 Bedside Hemoglobin 15.0 g/dl Bedside Hematocrit 44 % Bedside Sodium 136 mEq/L Bedside Potassium 3.9 mEq/L Bedside Chloride 96 mEq/L Bedside Total CO2 30 mEq/l Bedside Blood Urea Nitrogen 18 mg/dl Bedside Creatinine 0.8 mg/dl Bedside Glucose (other) 308 mg/dl Bedside Ionized Calcium (Makr) 1.11 mmol/l Urine Color YELLOW Urine Appearance CLEAR Urine pH 6.0 Urine Specific Hickman 1.020 Urine Protein 3+ Urine Glucose (UA) 3+ Urine Ketones NEG Urine Occult Blood 2+ Urine Nitrite NEG Urine Bilirubin NEG Urine Urobilinogen NEG Urine Leukocyte Esterase NEG Urine WBC (Auto) 0 /hpf Urine RBC (Auto) 0-4 /hpf Urine Hyaline Casts (Auto) 0 /lpf Urine Epithelial Cells (Auto) 10-20 /lpf Urine Bacteria (Auto) NEG Bedside Glucose 344 mg/dl Test 01/12/17 21:45 01/12/17 23:43 01/13/17 01:35 01/13/17 04:25 Digoxin Level 1.5 ng/ml Bedside Glucose 333 mg/dl 228 mg/dl 241 mg/dl Test 01/13/17 05:15 01/13/17 06:33 White Blood Count 8.38 K/uL Red Blood Count 4.56 M/uL Hemoglobin 12.6 g/dL Hematocrit 40.6 % Mean Corpuscular Volume 89.0 fL Mean Corpuscular Hemoglobin 27.6 pg Mean Corpuscular Hemoglobin Concent 31.0 g/dl Platelet Count 154 K/uL Mean Platelet Volume 9.4 fL Neutrophils (%) (Auto) 77.2 % Lymphocytes (%) (Auto) 12.4 % Monocytes (%) (Auto) 9.4 % Eosinophils (%) (Auto) 0.7 % Basophils (%) (Auto) 0.2 % Neutrophils # (Auto) 6.46 K/uL Lymphocytes # (Auto) 1.04 K/uL Monocytes # (Auto) 0.79 K/uL Eosinophils # (Auto) 0.06 K/uL Basophils # (Auto) 0.02 K/uL RDW Standard Deviation 49.2 fL RDW Coefficient of Variation 15.1 % Immature Granulocyte % (Auto) 0.1 % Immature Granulocyte # (Auto) 0.01 K/uL Prothrombin Time 11.4 SECONDS Prothromb Time International Ratio 1.1 Activated Partial Thromboplast Time 27.4 SECONDS Partial Thromboplastin Ratio 1.1 Sodium Level 142 mmol/L Potassium Level 4.1 mmol/L Chloride Level 105 mmol/L Carbon Dioxide Level 32 mmol/L Anion Gap 5.0 mmol/L Blood Urea Nitrogen 14 mg/dl Creatinine 0.87 mg/dl Est Creatinine Clear Calc Drug Dose 68.4 ml/min Estimated GFR () 76.6 Estimated GFR (Non- 66.1 BUN/Creatinine Ratio 15.8 Random Glucose 227 mg/dl Estimated Average Glucose 180 mg/dl Hemoglobin A1c 7.9 % Calcium Level 7.9 mg/dl Bedside Glucose 226 mg/dl (Feli Gutierrez, AMINATA) Assessment and Plan 71 yo F with PMHx of CAD s/p CVA unknown timing, HTN, dyslipidemia, DM II, anxiety and depression, GERD with complaints of cough, fever, shortness of breath, nausea, abdominal pain and diarrhea found to have a BERNICE pneumonia vs. mass which measures 8 x 4 cm. Acute hypoxic respiratory failure secondary to CAP vs lung mass -CT chest reviewed and reveals an 8 x 4 cm infiltrate versus mass in the left upper lobe. -Continue levaquin and zosyna along with vanc - ID consult pending - Xopenex/Atrovent nebs q 6 h, incentive spirometry, flutter, mucinex - Pt has been febrile intermittently with Tmax =38, continue tylenol prn - No leukocytosis - IVFs @ 80 mL/hr - Follow BCx and sputum cx - Pulmonary consulted: appreciate recs: checking legionella ?Abdominal pain nausea and diarrhea -stool cx, c diff sent -CT abd/pelvis today since she had CTA yesterday IMPRESSION: 1. Mild hepatic steatosis 2. Mild hepatosplenomegaly 3. Mild intra and extrahepatic biliary ductal dilatation 4. Surgically absent gallbladder, appendix, and uterus. 5. No evidence of bowel obstruction. No evidence of free air. 6. No acute inflammatory changes within the abdomen or pelvis. Coronary artery disease-no signs of angina -Continue Coreg 6.25 mg twice daily, aspirin 325 mg daily, Lipitor 80 mg daily, Plavix 75 mg daily, lisinopril 20 mg daily, Imdur ER 60 mg daily ?A fib - Continue Digoxin 375 mcg daily - Has frequent PVC per tele monitoring. Diabetes mellitus - insulin sliding scale with accuchecks ACHS - HgbA1C= 7.9 - Diabetic diet Cori dermatitis -Nystatin powder BID to skin folds Depression / Anxiety -Continue Zoloft 50 mg BID DVT ppx: Lovenox 40 mg subQ daily, TEDS, SCDs CODE STATUS: LEVEL I FULL CODE Disposition: From home, lives with daughter/son-in-law and other family members (Feli Gutierrez, PAIván) Attending Attestation & Admission Note: Pt seen/examined, chart reviewed, and care plan d/w SHANTHI Gutierrez. I agree w/ the heart components of her documentation. Pt c/o dyspnea with exertion and cough along with wheezing. Denies recent travel. Has had mild weight loss recently but she is unsure how much. VSS O2 requirement gen - obese, nontoxic neck - no JVD mouth - MMM heart - RRR lungs - decreased BS left anterior chest with scattered rales, mild end-exp wheezing b/l posteriorly abd - soft, ND, mildly tender RUQ/epigastric region ext - no edema A/P: 1. large BERNICE lung mass vs community-acquired pneumonia - pulmonary/ID favoring pneumonia. Cont triple abx for now. 2. acute hypoxic resp failure 2nd to #1 - stable. 3. FEN - in light of CHF history d/c fluids. 4. uncontrolled T2DM - increase lantus to BID dosing; cont novolog - Tighten correction factor and carb ratio. PT, OT slow progress Herbert Chauhan MD (Herbert Chauhan MD)
--- NOTE | 2017-01-13 09:15 | Clinical Documentation Query ---
MARNIE Matamoros : CLINICAL DOCUMENTATION QUERY Patient is a 71-year-old female admitted for "acute hypoxic respiratory failure-? possible community acquired PNA with questionable underlying mass". BMI noted to be 42.8 kg/m*m. As appropriate, consider documentation as suggested below. In your clinical opinion is this patient: (x ) Obese/overweight ( ) Other explanation of clinical findings (Please Explain) ( ) Unable to determine (Please Define) ( ) Need to Discuss ( ) Not Agree The medical record reflects the following clinical findings, treatment, and risk factors. Clinical Indicators: As above Treatment: n/a Risk Factors: Caloric intake > caloric expenditure Clarification - BMI Reporting Coding Clinic [id number], p15 Question: There has been some confusion as to whether nursing staff documentation is acceptable for assigning BMI. Since hospitals are allowed to code the BMI based on the emergency department rn's documentation, it would seem reasonable to assign the BMI based on the nurse's documentation as well. Can coders use nursing documentation to assign the BMI? Answer: Yes, the BMI can be assigned based on medical record documentation from clinicians, including nurses and dieticians who are not the patient's provider. As stated in the Official Guidelines for Coding and Reporting, BMI code assignment may be based on medical record documentation from clinicians who are not the patient's provider, since this information is typically documented by other clinicians involved in the care of the patient. Dieticians were only mentioned as an example of a clinician that might document BMI information. However, the associated diagnosis (such as overweight, obesity, or underweight) must be documented by the provider. Please clarify and document your clinical opinion in the progress notes and discharge summary. Terms such as "probable", "suspected", "likely", "questionable", "possible", or "still to be ruled out" are acceptable. IF IN AGREEMENT, YOU MUST DOCUMENT ABOVE DIAGNOSTIC STATEMENT IN DAILY PROGRESS NOTES AND DISCHARGE SUMMARY. This document is not part of the patient's record. Thank You, Rob Ortiz, ODALIS [phone]
--- NOTE | 2017-01-13 09:53 | DIAGNOSTIC IMAGING REPORT ---
CT ABD/PELVIS IV AND ORAL CONT CLINICAL HISTORY: Right upper quadrant abdominal pain. Nausea. Diarrhea. COMPARISON STUDY: None. TECHNIQUE: Following the IV administration of 118 mL of Optiray-320, CT scan of the abdomen and pelvis was performed from the lung bases to the proximal femurs. Images are reviewed in the axial, sagittal, and coronal planes. IV contrast was administered without complication. CT DOSE: 1594.76 mGy.cm FINDINGS: Lower chest: There are coronary artery calcifications. There is basilar atelectasis. Groundglass opacities within the lingula, while nonspecific are likely atelectatic. Liver: There is mild hepatic steatosis. There is mild hepatomegaly. There is mild dilatation of the central intrahepatic ducts. The common bile duct is dilated measuring 10 mm. Gallbladder: Not visualized and presumed surgically absent Spleen: Mildly enlarged measuring 13 cm Pancreas: Unremarkable. Adrenal glands: Unremarkable. Kidneys: There is symmetric renal cortical enhancement. The kidneys are normal in size without hydronephrosis. There is mild bilateral perinephric fluid/edema. Bowel: There are no transition zones indicate bowel obstruction. There is no acute diverticulitis. By history the appendix is surgically absent. Peritoneum: No free intraperitoneal air is visualized. There is no significant ascites. Vasculature: There is no evidence of abdominal aortic dilatation. There is an indwelling IVC filter. Adenopathy: None. Pelvic viscera: The uterus is surgically absent. Left pelvic sidewall nodularity is felt to be secondary to the [place] left ovary Skeletal structures: There are postsurgical changes involving the left hip. There is an old L2 compression fracture. IMPRESSION: 1. Mild hepatic steatosis 2. Mild hepatosplenomegaly 3. Mild intra and extrahepatic biliary ductal dilatation 4. Surgically absent gallbladder, appendix, and uterus. 5. No evidence of bowel obstruction. No evidence of free air. 6. No acute inflammatory changes within the abdomen or pelvis. Electronically signed by: Elijah Womack M.D. 01/13/2017 9:52 AM Dictated Date/Time: 01/13/2017 9:26 AM
[2017-01-13] MEDS ORDERED: INSULIN GLARGINE SOLOSTAR 100 UNITS/ML 3 ML PEN SC SCH (10:00)
[2017-01-13] MEDS: VANCOMYCIN INJ 1,500 MG in SODIUM CHLORIDE 0.9% 500ML 500 ML IV SCH (10:07)
--- NOTE | 2017-01-13 10:34 | PULMONARY CONSULTATION ---
DATE OF CONSULTATION: 01/13/2017 TIME: 09:15 a.m. REPORT OF CONSULTATION: The patient was seen in room 232. She is a 71-year-old female who is not a good historian. She apparently became ill in the past 5 or 6 days. She had nausea, but no vomiting. She has had diarrhea, which is quite watery. It is starting to form up, however. She has had an increasing cough. This has been productive. At home, she was bringing up some yellow sputum mixed with blood. She cannot recall when the blood began. Today, she states that her mucus is brown. She felt like she had a fever at home, but did not check her temperatures. She has been febrile intermittently since admission and her highest temperature thus far has been 38 degrees. The patient has noticed wheezing. She has been somewhat short of breath for an undisclosed period of time. She wears nasal cannula oxygen at night. She states she had a sleep study done a couple of years ago at some place near [place]. They did not treat her with CPAP, but they put her on oxygen. However, she denies having had any pulmonary problems in the past such as asthma, tuberculosis, pneumonia, pleurisy or emphysema. The patient has never smoked. She is not on any bronchodilators at home. She was complaining about the nebulizer treatment, stating that it made her fill up with phlegm in the back of her throat. I explained to her that it may actually be helping her to expectorate. The patient admits that her memory is poor. Thus, she has difficulty with recall of events. There also is a history of frequent falls. She could not tell me how many times she has fallen or when they started. She had one episode where they took her to [facility] and she had to have sutures in her toe because of a laceration. She has not had chest pains. She does have a history of cardiac disease. She had a bypass done about 1999 and she has had cardiac stenting. PAST SURGICAL HISTORY: 1. Coronary artery bypass graft in 1999. 2. Cardiac stents. 3. Cholecystectomy. 4. Cataract surgery, right and left. 5. Lower abdominal scar that per the patient's description sounds like an exploratory lap. PAST MEDICAL HISTORY: 1. Hypertension. 2. Diabetes. 3. Coronary artery disease. 4. Reflux. 5. Anxiety and/or depression. 6. Childbirth x4. 7. Miscarriage x1. 8. CVA -- the patient could not tell me when this occurred or what symptoms she has. FAMILY HISTORY: The patient states she was raised by foster parents. She states her mother did have some type of cancer, but she does not know what. She did not know the medical history that her father had. SOCIAL HISTORY: Tobacco, never. ETOH -- None. ALLERGIES: THERE ARE LISTED ALLERGIES TO ADHESIVES, AMOXICILLIN, CEPHALEXIN, CLARITHROMYCIN, CLAVULANIC ACID, AND METAPROTERENOL. THEY ALL LIST HIVES THE REACTION. 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 MEDICATIONS: At home: 1. Aspirin 325 mg daily. 2. Atorvastatin 80 mg at bedtime. 3. Carvedilol 6.25 mg b.i.d. 4. Clopidogrel 75 mg daily. 5. Digoxin 375 mcg daily. 6. Pepcid 20 mg b.i.d. 7. Fish oil 2 caps b.i.d. 8. Lasix 80 mg daily. 9. Novolin N 50 units b.i.d. 10. Novolin R 30 units b.i.d. 11. Isosorbide mononitrate 60 mg daily. 12. Lisinopril 20 mg daily. 13. Ativan 1 mg b.i.d. 14. Potassium 10 mEq daily. 15. Sertraline 50 mg b.i.d. REVIEW OF SYSTEMS: The patient is a poor historian. She does admit to weakness. She has had the recurring falls as noted. She does not think she snores. She denies difficulty swallowing. The remainder of review of systems is negative except for those things noted above. Ten systems were reviewed. PHYSICAL EXAMINATION: GENERAL: The patient is a 71-year-old female who was cooperative, alert and oriented. She was able to tell me the month and the date. She could not tell me the day of the week. It took her time to think of answers to these questions. VITAL SIGNS: Current temperature is 37.3. HEENT: Eye exam showed evidence of implants bilaterally. Pupils were reactive to light. Nares revealed nasal cannula in place. Mouth exam showed an absence of teeth. NECK: Palpation of the neck reveals no lymph nodes. CHEST: Inspection of the chest reveals a scar on the anterior chest from prior surgery. HEART: Heart rate was 68 per minute. Occasional to frequent extrasystoles were heard upon review of telemetry, suggests PVCs. Blood pressure is 188/60. There is a systolic murmur at grade 2/6 heard. LUNGS: Auscultation of the lung perez revealed wheezing bilaterally on expiration. Respiratory rate was 20 breaths per minute. Her saturation is 95% on 2 liters. Yesterday on room air, pulse ox was 82%. ABDOMEN: Obese. Her BMI is 42.8 with a weight of 109.5 kilograms. There is a scar in the lower abdominal region near the midline. Bowel sounds were active. There was no tenderness to palpation and no definite mass. EXTREMITIES: Reveal what appeared to be DJD of the knees. There was no cyanosis or clubbing. Trace edema was noted. DIAGNOSTIC STUDIES: The patient had a CAT scan of the chest yesterday. There was no evidence of pulmonary embolic disease. She had a large consolidated density in the left upper lung field anteriorly. This measures 8 cm x 4 cm. The differential diagnosis would be that of a left upper lobe infiltrate versus an underlying mass. There was mild enlargement of some mediastinal lymph nodes with the largest measuring 1.3 cm. LABORATORY DATA: CBC showed a white count of 10.58. Hemoglobin 14.3. Platelets 162,000. The differential showed 79.3 neutrophils with 11.8 lymphs and 8.1 monocytes. INR was 1.1 and PTT was 27.4. Urinalysis shows 3+ protein, 3+ glucose, and 2+ blood. Leukocyte esterase was negative. The RBCs were reported as 0-4 despite the 2+ blood. Electrolytes show sodium 136, potassium 3.9, chloride 100, and bicarbonate 28. The BUN was 16 with a creatinine of 0.94. Blood sugars have been in the 300s. Bilirubin was 1.1. AST and ALT were both 28, which is normal. Alkaline phosphatase was 68. CPK was elevated at 445. Troponin was normal. Total protein was 7.3. Albumin was 3.0. IMPRESSIONS: 1. Probable pneumonia, left upper lobe. 2. Hemoptysis, likely secondary to #1. 3. Rule out lung mass. 4. Hematuria. 5. Coronary artery disease. COMMENTS: The patient has fairly acute symptoms. She has a large densely consolidated infiltrate. This is mass like in appearance. She has no history of smoking in the past. She is having fevers and seemingly an acute illness. Thus, the most likely diagnosis is pneumonia, but we are still in inability to exclude a mass. The patient gives a history of recurring falls. The exact etiology of that is not clear. The patient is having a CT of the abdomen and pelvis today. Would suggest doing an MRI of the brain or CT of the brain before discharge as part of the evaluation of the recurring falls. I will order sputum for Gram stain and culture and cytology. We will order Legionella urinary antigen in light of her dense pneumonia with associated diarrhea. I encouraged the patient continue taking the nebulizer treatments as they are ordered. She currently is on levofloxacin, vancomycin, and Zosyn. An ID consult is pending. Obviously, if the infiltrate did not clear in a reasonable period of time, she would be a candidate for bronchoscopy. We need, however, to give her time to improve. She is diabetic and thus her immune system may well not be exactly normal. Pulmonary will follow along. Thank you for referring this patient. PAT
[2017-01-13] MEDS ORDERED: LEVOFLOXACIN / D5W 750 MG in PREMIXED IN D5W 100 ML IV SCH (14:00)
--- NOTE | 2017-01-13 14:12 | INFECT. DISEASE CONSULTATION ---
DATE OF CONSULTATION: 01/13/2017 DATE OF CONSULTATION: 01/13/2017. REQUESTING PHYSICIAN: Dr. Nair. HISTORY OF PRESENT ILLNESS: This is a 71-year-old female who was admitted to the hospital from her primary care office when she presented there with fever, nausea, shortness of breath and cough that had been progressively worse over the past 5 days. In the Emergency Room, she was found to have a T-max of 38 degrees. She did have a white blood cell count of 10. Blood cultures were obtained. A CAT scan of the chest was also obtained. This showed a left upper lobe density measuring 8 x 4 cm which was infiltrate versus underlying mass. She states prior to last week she was feeling in her normal state of health. She is complaining of productive cough and sometimes blood-tinged sputum. A sputum culture is pending. She currently states she is feeling fatigued. She denies any chest pain. She denies any wheezing. She denies any nausea, vomiting or diarrhea on my examination. A C. diff was obtained this hospital admission and is negative. She did have complaints of diarrhea on admission. All remaining review of systems are reviewed and are unremarkable. PAST MEDICAL HISTORY: Significant for type 2 diabetes, hypertension, coronary artery disease. PAST SURGICAL HISTORY: Significant for CABG, cholecystectomy and cardiac stents. FAMILY HISTORY: Noncontributory. SOCIAL HISTORY: Negative for tobacco use, alcohol use or drug use. She denies any sick contacts. ALLERGIES: INCLUDE ADHESIVE TAPE, PENICILLIN, CEPHALEXIN, CLARITHROMYCIN, AND METOPROLOL. CURRENT MEDICATIONS: Include Lipitor, guaifenesin, digoxin, levofloxacin, vancomycin, insulin, Ecotrin, Coreg, Plavix, Pepcid, Imdur, Zestril, Zoloft, Lovenox, nystatin powder, hydralazine, Atrovent, Xopenex, Zosyn, Ativan, Tylenol, Maalox, milk of magnesia. PHYSICAL EXAMINATION: VITAL SIGNS: She is afebrile currently, pulse is 64, respiratory rate is 20, blood pressure is 169/68, oxygen saturation is 96% on 2 liters nasal cannula. GENERAL: She is awake and alert but somewhat lethargic. HEAD, EYES, EARS, NOSE, AND THROAT: Mucous membranes are dry. Extraocular muscles are intact. There is some weeping from the left eye. HEART: Regular. LUNGS: Decreased bilaterally without wheezing or rhonchi. ABDOMEN: Soft, nontender, nondistended. EXTREMITIES: There is no lower extremity edema bilaterally. SKIN: Without rash. LABORATORY STUDIES: CBC today reveals a white blood cell count of 8.3, hemoglobin 12.6, platelets are 154. Chemistry panel reveals a sodium of 142, potassium 4.1, chloride 105, bicarbonate 32, BUN 14, creatinine 0.8 and glucose is 226. LFTs were normal on admission. Urinalysis is unremarkable. Blood cultures are pending. A C. diff is negative. Sputum culture was ordered and was not collected. A CT of the abdomen and pelvis was unremarkable. CT of the chest is as previously reported. ASSESSMENT AND PLAN: 1. Left upper lobe pneumonia. 2. Fever. At this time, I would continue her on antibiotics pending the results of blood and sputum cultures. Certainly mass would need to be ruled out; however, she does not have any significant risk factors for cancer and she also has sudden onset of symptoms which would suggest an infective process. She will be continued on antibiotics and I would recommend that she have repeat imaging in the next 4-6 weeks to address any resolution. If she does not have resolution of the mass in her left upper lobe but clinically has improved bronchoscopy with biopsy would be indicated; however, I agree that this can be held for now. We will follow along with you. Thank you for this consultation.
--- NOTE | 2017-01-13 14:18 | Progress Note ---
Progress Note Date of Service Jan 13, 2017. Progress Note ID Consult Dictated #[id number] A/P: 1. BERNICE PNA 2. Fever -Suspect BERNICE findings are related to infection and not underlying malignancy -Continue abx, follow cultures -Pulm following, would suggest repeat imaging in 4-6 to assess for resolution, if persists and clinically improved, may need broch and biopsy but no cancer risk noted -Will follow, thank you
[2017-01-13] MEDS: LEVOFLOXACIN / D5W 750 MG in PREMIXED IN D5W 150 ML IV SCH (17:02)
[2017-01-13] MEDS: DIGOXIN 0.25 MG TAB PO SCH (17:06)
[2017-01-13] MEDS: ACETAMINOPHEN 325 MG TAB PO PRN (20:11)
[2017-01-13] MEDS: ATORVASTATIN 40 MG TAB PO SCH (20:36)
[2017-01-13] MEDS: GUAIFENESIN 600 MG TABCR PO SCH (20:37)
[2017-01-13] MEDS: HydrALAZINE HCL 20 MG/ML VIAL IV. PRN (20:49)
[2017-01-13] MEDS: INSULIN GLARGINE SOLOSTAR 100 UNITS/ML 3 ML PEN SC SCH (20:55)
[2017-01-14] VITALS (9 sets, daily range): BP systolic 104–185; BP diastolic 51–70; PULSE 59–71; TEMP 36.6–37.6; O2SAT 94–97
[2017-01-14] MEDS: IPRATROPIUM BROMIDE NEB SOLN 0.02% 2.5 ML VIAL INH SCH ×4 (01:43→19:20)
[2017-01-14] MEDS: LEVALBUTEROL 1.25MG/0.5ML NEB INH SCH ×4 (01:43→19:20)
[2017-01-14] MEDS: VANCOMYCIN INJ 1,500 MG in SODIUM CHLORIDE 0.9% 500ML 500 ML IV SCH ×2 (01:48→19:58)
[2017-01-14] MEDS: PIPERACILL/TAZOBAC IV 4.5 GM in DEXTROSE 5% 100ML 100 ML IV SCH ×3 (01:49→18:05)
[2017-01-14] MEDS: INSULIN ASPART 100 UNITS/ML 3 ML PEN SC SCH ×6 (03:51→21:13)
[2017-01-14 07:35] LABS: BASO % 0.2 %; BASO ABS # 0.02 K/uL (0-0.2); COMPLETE YES; EOS % 1.5 %; HEMATOCRIT 35.3 % (37-47); IG% 0.2 %; LYMPH % 12.5 %; LYMPH ABS # 1.03 K/uL (1.2-3.4); MEAN CELL VOLUME 88.9 fL (80-100); MEAN CORPUSCULAR HEMOGLOBIN 28.5 pg (25-34); MEAN PLATELET VOLUME 9.1 fL (7.4-10.4); NEUT % 77.6 %; PLATELET COUNT 145 K/uL (130-400); RED BLOOD COUNT 3.97 M/uL (4.2-5.4); WHITE BLOOD COUNT 8.23 K/uL (4.8-10.8)
[2017-01-14] MEDS: LACTOBACILLUS ACIDOPHILUS 1 GM PACK PO SCH ×3 (07:55→17:38)
[2017-01-14] MEDS: NYSTATIN POWDER 15GM BTL EXT SCH ×2 (07:56→21:09)
[2017-01-14] MEDS: CARVEDILOL 6.25 MG TAB PO SCH ×2 (07:56→21:10)
[2017-01-14] MEDS: ENOXAPARIN 40 MG/0.4 ML SYR SC SCH (07:56)
[2017-01-14] MEDS: GUAIFENESIN 600 MG TABCR PO SCH ×2 (07:57→21:10)
[2017-01-14] MEDS: ASPIRIN 325 MG ECTAB PO SCH (07:57)
[2017-01-14] MEDS: LISINOPRIL 20 MG TAB PO SCH (07:57)
[2017-01-14] MEDS: FAMOTIDINE 20 MG TAB PO SCH ×2 (07:57→21:09)
[2017-01-14] MEDS: ISOSORBIDE MONONITRATE 60 MG TABCR PO SCH (07:57)
[2017-01-14] MEDS: SERTRALINE HCL 50 MG TAB PO SCH ×2 (07:57→21:09)
[2017-01-14] MEDS: CLOPIDOGREL BISULFATE 75 MG TAB PO SCH (07:57)
[2017-01-14] MEDS: INSULIN GLARGINE SOLOSTAR 100 UNITS/ML 3 ML PEN SC SCH ×2 (08:02→21:13)
[2017-01-14] MEDS: LORAZEPAM 1 MG TAB PO SCH ×2 (08:05→21:09)
[2017-01-14 08:10] LABS: BUN/CREATININE RATIO 13.2 (10-20); CALCIUM 8.2 mg/dl (8.5-10.1); CREATININE 0.96 mg/dl (0.60-1.20)
[2017-01-14] MEDS ORDERED: INSULIN GLARGINE SOLOSTAR 100 UNITS/ML 3 ML PEN SC ONE (09:30)
--- NOTE | 2017-01-14 09:51 | Hospitalist Progress Note ---
Hospitalist Progress Note Date of Service Jan 14, 2017. (Feli Gutierrez PA-C) Subjective Pt evaluation today including: conversation w/ patient, physical exam, chart review, lab review, review of studies Pain: None PO Intake: Good Voiding: no voiding problems The patient was seen and examined this morning. Pt reports doing about the same today. Her legs are hurting because of wearing SCDs all night. She denies any acute calf tenderness, numbness or tingling, or other complaints. Cough is still present, productive with sputum which is different colors. She is using the nebulizer tx which she thinks help slightly but overall not a large improvement. She denies any chest pain or tightness. She felt feverish overnight with sweats and then woke up this morning feeling chilled. Pt has been ambulating more within the room and does not feel as short of breath. She is agreeable to walk around the halls today and see if she feels better. Additional Comments: ROS: 6 point ROS reviewed and otherwise negative. (Feli Gutierrez PA-C) Objective Vital Signs Date Time Temp Pulse Resp B/P (MAP) Pulse Ox O2 Delivery O2 Flow Rate FiO2 01/14/17 08:30 Nasal Cannula 2.0 01/14/17 07:56 71 18 95 Nasal Cannula 2.0 01/14/17 07:42 37.6 69 18 178/63 (101) 95 2.0 01/14/17 04:00 Nasal Cannula 2.0 01/14/17 03:52 37.5 68 20 104/64 (77) 95 Nasal Cannula 2.0 01/14/17 01:43 67 18 94 Nasal Cannula 2.0 01/14/17 00:00 Nasal Cannula 2.0 01/13/17 23:00 37.4 65 20 155/70 (98) 92 Nasal Cannula 2.0 01/13/17 22:17 37.4 71 168/73 (104) 01/13/17 20:07 38.3 71 20 179/67 (104) 96 Nasal Cannula 2.0 Humidified Air 01/13/17 20:00 Nasal Cannula 2.0 01/13/17 19:55 70 18 93 Nasal Cannula 2.0 01/13/17 17:06 74 01/13/17 16:18 37.0 63 22 110/69 (83) 96 Nasal Cannula 2.0 Humidified Air 01/13/17 16:05 87 96 01/13/17 16:00 Nasal Cannula 2.0 01/13/17 14:26 68 18 96 Nasal Cannula 2.0 01/13/17 12:13 Nasal Cannula 2.0 01/13/17 11:02 37.4 64 20 169/68 (101) 96 Nasal Cannula 2.0 01/13/17 09:48 164/67 (99) (Feli Gutierrez, AMINATA) Laboratory Results Last 24 Hours Test 01/13/17 11:01 01/13/17 16:36 01/13/17 20:48 01/14/17 01:02 Bedside Glucose 226 mg/dl 280 mg/dl 291 mg/dl 199 mg/dl Test 01/14/17 03:47 01/14/17 07:21 01/14/17 07:53 Bedside Glucose 183 mg/dl 222 mg/dl White Blood Count 8.23 K/uL Red Blood Count 3.97 M/uL Hemoglobin 11.3 g/dL Hematocrit 35.3 % Mean Corpuscular Volume 88.9 fL Mean Corpuscular Hemoglobin 28.5 pg Mean Corpuscular Hemoglobin Concent 32.0 g/dl Platelet Count 145 K/uL Mean Platelet Volume 9.1 fL Neutrophils (%) (Auto) 77.6 % Lymphocytes (%) (Auto) 12.5 % Monocytes (%) (Auto) 8.0 % Eosinophils (%) (Auto) 1.5 % Basophils (%) (Auto) 0.2 % Neutrophils # (Auto) 6.38 K/uL Lymphocytes # (Auto) 1.03 K/uL Monocytes # (Auto) 0.66 K/uL Eosinophils # (Auto) 0.12 K/uL Basophils # (Auto) 0.02 K/uL RDW Standard Deviation 49.9 fL RDW Coefficient of Variation 15.2 % Immature Granulocyte % (Auto) 0.2 % Immature Granulocyte # (Auto) 0.02 K/uL Sodium Level 138 mmol/L Potassium Level 4.0 mmol/L Chloride Level 103 mmol/L Carbon Dioxide Level 28 mmol/L Anion Gap 7.0 mmol/L Blood Urea Nitrogen 13 mg/dl Creatinine 0.96 mg/dl Est Creatinine Clear Calc Drug Dose 62.5 ml/min Estimated GFR () 68.0 Estimated GFR (Non- 58.7 BUN/Creatinine Ratio 13.2 Random Glucose 218 mg/dl Calcium Level 8.2 mg/dl Total Creatine Kinase 347 U/L Chemistry Specimen Hemolysis (Feli Gutierrez, AMINATA) Assessment and Plan 71 yo F with PMHx of CAD s/p CVA unknown timing, HTN, dyslipidemia, DM II, anxiety and depression, GERD with complaints of cough, fever, shortness of breath, nausea, abdominal pain and diarrhea found to have a BERNICE pneumonia vs. mass which measures 8 x 4 cm. Acute hypoxic respiratory failure secondary to CAP vs lung mass -CT chest reviewed and reveals an 8 x 4 cm infiltrate versus mass in the left upper lobe. - ID and pulm have seen the patient and are leaning toward the infectious etiology vs underlying malignancy. The patient should have repeat imaging within 4-6 weeks or if worsening sx after discharge -Continue levaquin, zosyn along with vanc (day #3) - Xopenex/Atrovent nebs q 6 h, incentive spirometry, flutter, mucinex - Pt has been febrile intermittently, overnight was febrile with Tmax =38.3, continue tylenol prn - No leukocytosis - BCx prelim is negative, - Collect sputum cx today, cup is sitting at bedside- checking legionella - will follow Abdominal pain nausea and diarrhea - BM this morning x 1 was loose, but seems to be improving compared to admission. -stool cx, c diff sent and are NEG. -CT abd/pelvis today since she had CTA yesterday IMPRESSION: 1. Mild hepatic steatosis 2. Mild hepatosplenomegaly 3. Mild intra and extrahepatic biliary ductal dilatation 4. Surgically absent gallbladder, appendix, and uterus. 5. No evidence of bowel obstruction. No evidence of free air. 6. No acute inflammatory changes within the abdomen or pelvis. Coronary artery disease-no signs of angina -Continue Coreg 6.25 mg twice daily, aspirin 325 mg daily, Lipitor 80 mg daily, Plavix 75 mg daily, lisinopril 20 mg daily, Imdur ER 60 mg daily ?A fib - Continue Digoxin 375 mcg daily - Has frequent PVC per tele monitoring. Diabetes mellitus - Cont Lantus 30 U BID - insulin sliding scale with accuchecks ACHS - HgbA1C= 7.9 - Diabetic diet Cori dermatitis -Nystatin powder BID to skin folds Depression / Anxiety -Continue Zoloft 50 mg BID DVT ppx: Lovenox 40 mg subQ daily, TEDS, SCDs CODE STATUS: LEVEL I FULL CODE Disposition: From home, lives with daughter/son-in-law and other family members , discharge within 2 days (Feli Gutierrez, AMINATA) Attending Attestation & Admission Note: Pt seen/examined, chart reviewed, and care plan d/w SHANTHI Gutierrez I agree w/ the heart components of her documentation. Pt w/ c/o right knee pain. Sees ortho as outpatient; has received steroid shots in past for severe OA. no h/o gout. started hurting "last night" breathing is better appetite better VSS afebrile gen - nad neck - no JVD heart - RRR lungs - decreased BS with rales anterior left chest; posterior chest cta b/l abd - soft ext - right knee with mild joint effusion A/P: 1. BERNICE pneumonia - very large - vs mass. day #3 of IV abx (triple therapy). improving. 2. right knee pain - check x-rays; indocin 25mg TID x 3 doses. consider injection if it hinders her ambulation. 3. T2DM - uncontrolled - increase lantus to 30 U BID; adjust novolog correction and carb ratio slow improvement Genesis LINDSEY MD (Herbert Lindsey MD)
--- NOTE | 2017-01-14 11:30 | Progress Note ---
Subjective Date of Service: Jan 14, 2017. Subjective Pt evaluation today including: conversation w/ patient, physical exam, chart review, lab review pt oob to chair, lethargic but wakes easily, answers questions. still with sob and cough, sputum culture ordered, not collected. denies f/c, denies cp, states she is weak. tolerating abx. blood cultures negative to date. tmax 38. all remaining ros reviewed and are negative. Problem List Medical Problems: (1) Hypoxia Status: Acute (2) Lung mass Status: Acute Objective Vital Signs Date Time Temp Pulse Resp B/P (MAP) Pulse Ox O2 Delivery O2 Flow Rate FiO2 01/14/17 08:30 Nasal Cannula 2.0 01/14/17 07:56 71 18 95 Nasal Cannula 2.0 01/14/17 07:42 37.6 69 18 178/63 (101) 95 2.0 01/14/17 04:00 Nasal Cannula 2.0 01/14/17 03:52 37.5 68 20 104/64 (77) 95 Nasal Cannula 2.0 01/14/17 01:43 67 18 94 Nasal Cannula 2.0 01/14/17 00:00 Nasal Cannula 2.0 01/13/17 23:00 37.4 65 20 155/70 (98) 92 Nasal Cannula 2.0 01/13/17 22:17 37.4 71 168/73 (104) 01/13/17 20:07 38.3 71 20 179/67 (104) 96 Nasal Cannula 2.0 Humidified Air 01/13/17 20:00 Nasal Cannula 2.0 01/13/17 19:55 70 18 93 Nasal Cannula 2.0 01/13/17 17:06 74 01/13/17 16:18 37.0 63 22 110/69 (83) 96 Nasal Cannula 2.0 Humidified Air 01/13/17 16:05 87 96 01/13/17 16:00 Nasal Cannula 2.0 01/13/17 14:26 68 18 96 Nasal Cannula 2.0 01/13/17 12:13 Nasal Cannula 2.0 Physical Exam General Appearance: WD/WN, + mild distress Eyes: normal inspection, EOMI Neck: supple Respiratory/Chest: no respiratory distress, + decreased breath sounds Cardiovascular: regular rate, rhythm, no edema Abdomen: non tender, soft Extremities: non-tender, normal inspection, no pedal edema Neurologic/Psychiatric: alert, oriented x 3 Skin: normal color Laboratory Results Item Value Date Time Blood Culture - Preliminary Resulted 01/12/17 1245 Blood NO GROWTH TO DATE. Blood Culture - Preliminary Resulted 01/12/17 1519 Blood NO GROWTH TO DATE. C.difficile Toxin B Gene (PCR) - Final Complete 01/13/17 0000 Stool No C. difficile toxin B gene detected Last 24 Hours Test 01/13/17 16:36 01/13/17 20:48 01/14/17 01:02 01/14/17 03:47 Bedside Glucose 280 mg/dl 291 mg/dl 199 mg/dl 183 mg/dl Test 01/14/17 07:21 01/14/17 07:53 White Blood Count 8.23 K/uL Red Blood Count 3.97 M/uL Hemoglobin 11.3 g/dL Hematocrit 35.3 % Mean Corpuscular Volume 88.9 fL Mean Corpuscular Hemoglobin 28.5 pg Mean Corpuscular Hemoglobin Concent 32.0 g/dl Platelet Count 145 K/uL Mean Platelet Volume 9.1 fL Neutrophils (%) (Auto) 77.6 % Lymphocytes (%) (Auto) 12.5 % Monocytes (%) (Auto) 8.0 % Eosinophils (%) (Auto) 1.5 % Basophils (%) (Auto) 0.2 % Neutrophils # (Auto) 6.38 K/uL Lymphocytes # (Auto) 1.03 K/uL Monocytes # (Auto) 0.66 K/uL Eosinophils # (Auto) 0.12 K/uL Basophils # (Auto) 0.02 K/uL RDW Standard Deviation 49.9 fL RDW Coefficient of Variation 15.2 % Immature Granulocyte % (Auto) 0.2 % Immature Granulocyte # (Auto) 0.02 K/uL Sodium Level 138 mmol/L Potassium Level 4.0 mmol/L Chloride Level 103 mmol/L Carbon Dioxide Level 28 mmol/L Anion Gap 7.0 mmol/L Blood Urea Nitrogen 13 mg/dl Creatinine 0.96 mg/dl Est Creatinine Clear Calc Drug Dose 62.5 ml/min Estimated GFR () 68.0 Estimated GFR (Non- 58.7 BUN/Creatinine Ratio 13.2 Random Glucose 218 mg/dl Calcium Level 8.2 mg/dl Total Creatine Kinase 347 U/L Chemistry Specimen Hemolysis Bedside Glucose 222 mg/dl Assessment and Plan (1) Pneumonia Assessment & Plan: continue with abx, follow cultures. blood cultures negative to date. will need repeat imaging post d/c to assess resolution of mass (2) Fever
[2017-01-14] MEDS: LEVOFLOXACIN / D5W 750 MG in PREMIXED IN D5W 150 ML IV SCH (14:18)
[2017-01-14] MEDS: DIGOXIN 0.25 MG TAB PO SCH (16:00)
[2017-01-14] MEDS: ACETAMINOPHEN 325 MG TAB PO PRN (16:09)
--- NOTE | 2017-01-14 17:07 | PROGRESS NOTE ---
DATE: 01/14/2017 PROBLEM LIST: Includes: 1. Left upper lobe consolidation consistent with pneumonia. 2. Hemoptysis. 3. History of coronary artery disease. 4. Hematuria. SUBJECTIVE: The patient reports that her breathing is lot better today. She states that she was able to cough up quite a bit of mucus a little while ago and this did seem to help her breathing improve. She states that the mucus did not have any blood in it this morning, she states that it did last night. She feels that her breathing is a little bit easier. She is less short of breath. She has less wheezing although she still is wheezing a little bit. She has no chest pain. No abdominal pain. No nausea. She did have some diarrhea. No other concerns or problems at this time. OBJECTIVE: GENERAL: The patient is a 71-year-old female sitting at bedside, was sleeping when I went in, awakened easily. She is alert and oriented x3. Mood is good. Affect is good. VITAL SIGNS: Temp 36.6, pulse 67, respirations 18, blood pressure is 163/51, pulse ox 95-97% on 2 liters. HEENT: Normocephalic, atraumatic. Pupils are equal, round, reactive. [place] moist gingival and buccal mucosa. NECK: Short, thick. No mass, adenopathy or bruit. CHEST: She had diminished breath sounds bilaterally. She does have some faint expiratory wheezing in the upper airways, predominantly on the left, although was bilaterally. No rale or rhonchi appreciated. CARDIOVASCULAR: Regular rate and rhythm. No murmurs, gallops or rubs. ABDOMEN: Bowel sounds present. Obese, soft, nontender. No guarding, rigidity or organomegaly. EXTREMITIES: No erythema, trace edema, no cyanosis or clubbing noted. NEUROLOGIC: Cranial nerves II-XII are intact. No focal deficit noted. LABORATORY DATA: Shows a white count of 8000, H&H 11.3 and 35.3, platelet count 145,000. Sputum culture was ordered but nothing has been collected yet. No new imaging data. IMPRESSION: 1. This is a 71-year-old female with a left upper lobe consolidated area on CAT scan imaging with probable pneumonia although cannot exclude underlying mass at this time. Clinically, she is showing some improvement. For now, continue on Levaquin and vancomycin. Continue her on her nebulization with levalbuterol and ipratropium. If wheezing worsens or she becomes more short of breath, can consider Solu-Medrol. We would recommend to do a repeat imaging in probably 2 days with chest x-ray. 2. Hemoptysis. According to the patient, this is resolved today. 3. Coronary artery disease, stable. 4. Hematuria. Urine culture was obtained. 5. Diarrhea and Clostridium difficile was obtained. PLAN: 1. Continue meds as they are. 2. Continue antibiotic coverage with levofloxacin and vancomycin. 3. Continue aggressive pulmonary toilet. 4. Chest x-ray in 2 days. 5. Continue to follow through hospitalization.
[2017-01-14] MEDS ORDERED: VANCOMYCIN TROUGH SCH (17:30)
--- NOTE | 2017-01-14 20:35 | Pharmacy Progress Note ---
Pharmacy Abx Dose Progress Nt Date of Service Jan 14, 2017. Pharmacy Dosing Scope The patient was receiving the following antimicrobial agent per Pharmacy consult : Vancomycin 1500 mg IV every 16 hours Objective Height (Feet): 5 Height (Inches): 3.00 Weight (Kilograms): 111.000 Vital Signs (Past 12Hrs) Vital Signs Past 12 Hours Date Time Temp Pulse Resp B/P (MAP) Pulse Ox O2 Delivery O2 Flow Rate FiO2 01/14/17 19:20 68 18 96 Nasal Cannula 2.0 01/14/17 16:00 Nasal Cannula 2.0 01/14/17 16:00 55 01/14/17 15:40 37.1 61 18 152/61 (91) 95 Nasal Cannula 2.0 01/14/17 14:36 59 18 97 Nasal Cannula 2.0 01/14/17 12:02 36.6 67 18 163/51 (88) 95 2.0 01/14/17 12:00 Nasal Cannula 2.0 Lab Results (24Hrs) Laboratory Tests (24 Hours) Test 01/14/17 07:21 White Blood Count 8.23 K/uL (4.8-10.8) Red Blood Count 3.97 M/uL (4.2-5.4) L Hemoglobin 11.3 g/dL (12.0-16.0) L Hematocrit 35.3 % (37-47) L Mean Corpuscular Volume 88.9 fL (80-100) Mean Corpuscular Hemoglobin 28.5 pg (25-34) Mean Corpuscular Hemoglobin Concent 32.0 g/dl (32-36) Platelet Count 145 K/uL (130-400) Mean Platelet Volume 9.1 fL (7.4-10.4) Neutrophils (%) (Auto) 77.6 % Lymphocytes (%) (Auto) 12.5 % Monocytes (%) (Auto) 8.0 % Eosinophils (%) (Auto) 1.5 % Basophils (%) (Auto) 0.2 % Neutrophils # (Auto) 6.38 K/uL (1.4-6.5) Lymphocytes # (Auto) 1.03 K/uL (1.2-3.4) L Monocytes # (Auto) 0.66 K/uL (0.11-0.59) H Eosinophils # (Auto) 0.12 K/uL (0-0.5) Basophils # (Auto) 0.02 K/uL (0-0.2) Total Creatine Kinase 347 U/L (26-192) H Micro Results Date/Time Source Procedure Growth Status 01/12/17 15:19 Blood Blood Culture - Preliminary NO GROWTH TO DATE. Resulted 01/12/17 12:45 Blood Blood Culture - Preliminary NO GROWTH TO DATE. Resulted 01/13/17 00:00 Nasal MRSA DNA Surveillance Screen - Final Specimen Negative for MRSA by DNA Probe Complete 01/13/17 11:55 Stool WBC Smear - Final Complete 01/13/17 00:00 Stool C.difficile Toxin B Gene (PCR) - Final No C. difficile toxin B gene detected Complete Assessment & Plan Assessment 71 year old female receiving Vancomycin for treatment of Pneumonia. Day # 3/7 of antimicrobial therapy Plan Vancomycin IV * Trough level of 9.9 mcg/mL is subtherapeutic. * Hence Vancomycin dosing was changed to 1500 mg IV q14h. * Goal trough level for Pneumonia: 15 to 20 mcg/mL * Trough Vanco level ordered for: 01/17/17 at 0200. Piperacillin/tazobactam * Continue 4.5 g IV extended infusion every 8 hours for CrCl greater than 20 mL/ min. Pharmacy will continue to follow and will adjust dose/frequency as necessary. Thank you.
[2017-01-14] MEDS: ATORVASTATIN 40 MG TAB PO SCH (21:10)
[2017-01-14] MEDS: HydrALAZINE HCL 20 MG/ML VIAL IV. PRN (21:15)
[2017-01-14] MEDS: INDOMETHACIN 25 MG CAP PO SCH (21:19)
[2017-01-14] MEDS ORDERED: DILTIAZEM BOLUS / DRIP IV STA (22:26)
[2017-01-14] MEDS ORDERED: DILTIAZEM HCL 5 MG/ML 5 ML VIAL IV STA (22:38)
[2017-01-14] MEDS ORDERED: DILTIAZEM HCL INJ 125 MG in DEXTROSE 5% 100ML IV PRN (22:45)
--- NOTE | 2017-01-14 22:53 | DIAGNOSTIC IMAGING REPORT ---
RIGHT KNEE 3 VIEWS CLINICAL HISTORY: right knee pain; eval for CPPD changes, etc Right pain COMPARISON: None. DISCUSSION: Considerable degenerative change medial joint compartment as well as patellofemoral joint. Very small joint effusion. No abnormal meniscal calcifications. There is no evidence for soft tissue swelling. IMPRESSION: Severe degenerative change. Electronically signed by: Wang Warren M.D. 01/14/2017 10:51 PM Dictated Date/Time: 01/14/2017 10:51 PM
[2017-01-15] VITALS (10 sets, daily range): BP systolic 148–192; BP diastolic 50–82; PULSE 52–98; TEMP 36.5–37; O2SAT 93–98
[2017-01-15] MEDS: PIPERACILL/TAZOBAC IV 4.5 GM in DEXTROSE 5% 100ML 100 ML IV SCH ×3 (01:49→16:35)
[2017-01-15] MEDS: LEVALBUTEROL 1.25MG/0.5ML NEB INH SCH ×4 (01:57→19:36)
[2017-01-15] MEDS: IPRATROPIUM BROMIDE NEB SOLN 0.02% 2.5 ML VIAL INH SCH ×4 (01:57→19:36)
[2017-01-15 04:52] LABS: BASO % 0.4 %; BASO ABS # 0.03 K/uL (0-0.2); COMPLETE YES; EOS % 2.4 %; HEMATOCRIT 34.7 % (37-47); IG% 0.3 %; LYMPH % 16.5 %; LYMPH ABS # 1.17 K/uL (1.2-3.4); MEAN CELL VOLUME 88.1 fL (80-100); MEAN CORPUSCULAR HEMOGLOBIN 28.4 pg (25-34); MEAN CORPUSCULAR HGB CONC 32.3 g/dl (32-36); MEAN PLATELET VOLUME 9.3 fL (7.4-10.4); MONO % 6.8 %; NEUT % 73.6 %; PLATELET COUNT 156 K/uL (130-400); RED BLOOD COUNT 3.94 M/uL (4.2-5.4); WHITE BLOOD COUNT 7.08 K/uL (4.8-10.8)
[2017-01-15 05:14] LABS: BUN/CREATININE RATIO 18.2 (10-20); CREATININE 1.1 mg/dl (0.60-1.20); POTASSIUM 3.8 mmol/L (3.5-5.1)
[2017-01-15 05:43] LABS: CALCIUM 8.1 mg/dl (8.5-10.1)
[2017-01-15] MEDS: INDOMETHACIN 25 MG CAP PO SCH ×2 (07:20→14:51)
[2017-01-15] MEDS: ASPIRIN 325 MG ECTAB PO SCH (07:21)
[2017-01-15] MEDS: FAMOTIDINE 20 MG TAB PO SCH ×2 (07:21→21:27)
[2017-01-15] MEDS: ISOSORBIDE MONONITRATE 60 MG TABCR PO SCH (07:22)
[2017-01-15] MEDS: CLOPIDOGREL BISULFATE 75 MG TAB PO SCH (07:22)
[2017-01-15] MEDS: SERTRALINE HCL 50 MG TAB PO SCH ×2 (07:22→21:27)
[2017-01-15] MEDS: NYSTATIN POWDER 15GM BTL EXT SCH ×2 (07:23→21:26)
[2017-01-15] MEDS: CARVEDILOL 6.25 MG TAB PO SCH ×2 (07:23→21:27)
[2017-01-15] MEDS: LACTOBACILLUS ACIDOPHILUS 1 GM PACK PO SCH ×2 (07:24→11:30)
[2017-01-15] MEDS: ENOXAPARIN 40 MG/0.4 ML SYR SC SCH (07:25)
[2017-01-15] MEDS: VANCOMYCIN INJ 1,500 MG in SODIUM CHLORIDE 0.9% 500ML 500 ML IV SCH ×2 (07:31→21:34)
[2017-01-15] MEDS: LORAZEPAM 1 MG TAB PO SCH ×2 (07:32→21:33)
[2017-01-15] MEDS: INSULIN GLARGINE SOLOSTAR 100 UNITS/ML 3 ML PEN SC SCH ×2 (07:35→21:40)
[2017-01-15] MEDS: INSULIN ASPART 100 UNITS/ML 3 ML PEN SC SCH ×4 (07:53→21:00)
[2017-01-15] MEDS: GUAIFENESIN 600 MG TABCR PO SCH ×2 (09:00→21:27)
--- NOTE | 2017-01-15 13:24 | Pulmonology Progress Note ---
Pulmonary Progress Note Date of Service Jan 15, 2017. Attending Dr. Gregorai Guzmán The patient is a 71 yo female who reports she is a never smoker and had no family history of lung cancer or exposure to chemicals. She was admitted with BERNICE consolidation throught to be pneumonia, hemoptysis and cough as well as hypoxia. The patient says she had a lot of coughing last evening but is better today even after a meal (which usually illicits a lot of phlegm she was not coughing as much as before and no hemoptysis is noted. However, she says she is bringing up phlegm that is mostly brown. She was worried how she will have the O2 at home and I explained she would be evaluated before DC. She does not have wheezing and the SOB is much better. Objective GENERAL: AAOx3 with no apparent distress she talks in full sentences. VITAL SIGNS: SpO2 96=97% on 2 lit/min HR 58, BP is high at 192/50 RR 18 T 36.8 HEENT: Normocephalic, atraumatic. Pupils are equal, round, reactive. [place] moist gingival and buccal mucosa. NECK: Short, thick. No mass, adenopathy or bruit. CHEST: She had diminished breath sounds bilaterally. She has a fixed mild expiratory wheeze on the left. None on the right is heard today CARDIOVASCULAR: Regular rate and rhythm. No murmurs, gallops or rubs. ABDOMEN: Bowel sounds present. Obese, soft, nontender. No guarding, rigidity or organomegaly. EXTREMITIES: No erythema, trace edema, no cyanosis or clubbing noted. NEUROLOGIC: Cranial nerves II-XII are intact. No focal deficit noted. Assessment & Plan This is a 71-year-old female with a left upper lobe consolidation on CAT scan chest with probable pneumonia although cannot exclude underlying mass at this time. Clinically, she is showing some improvement. The appearance of the density is more for a mass than for infiltrates although there are some bronchograms at the lower end of the mass. However, she seems to be responding to antibiotics (this also could be an improvement in a postobstructive pneumonia component. There is a large L4 lymph node pneumonia BERNICE hemoptysis diarrhea resolved acute respiratory failure on O2 1- continue on Levaquin and vancomycin for a total of 7 days at least. Continue her on her nebulization with levalbuterol and ipratropium. 2- repeat CXR in am tomorrow. 3. Hemoptysis. According to the patient, this is resolved today. 4. Coronary artery disease, stable but suggest to control the SBP with hydralazine or an afterload apparel cutter (NICOLA) 5. clostridium deficile is negative. legionella antigen is pending. 6. pulmonary toiletting 7. mechanical prophylaxis for DVT and if she remains free of hemotysis we may start heparin SC Q12 5000 U SHe may need a bronch ultimately if the opacity does not improve. DEfer non respiratory management to the primary team. Will FU with PCP during this hospitalization Data Medications: Current Inpatient Medications Medications (Trade) Dose Ordered Sig/Alfredito Route Start Time Stop Time Status Last Admin Dose Admin Ioversol (Optiray 320) 125 ml UD PRN IV 01/12/17 12:45 01/16/17 12:44 Piperacillin Sod/ Tazobactam Sod 4.5 gm/Dextrose 120 ml @ 30 mls/hr Q8H IV 01/13/17 02:00 01/20/17 01:59 01/15/17 12:43 30 MLS/HR Insulin Aspart (novoLOG ASPART) SLIDING SCALE G... ACHS SC 01/13/17 07:00 02/12/17 06:59 01/15/17 11:00 9 UNITS Aspirin (Ecotrin Tab) 325 mg QAM PO 01/13/17 09:00 02/12/17 08:59 01/15/17 07:21 325 MG Atorvastatin Calcium (Lipitor Tab) 80 mg HS PO 01/13/17 21:00 02/12/17 20:59 01/14/17 21:10 80 MG Carvedilol (Coreg Tab) 6.25 mg BID PO 01/13/17 09:00 02/12/17 08:59 01/15/17 07:23 6.25 MG Clopidogrel Bisulfate (plAVix TAB) 75 mg QAM PO 01/13/17 09:00 02/12/17 08:59 01/15/17 07:22 75 MG Digoxin (Lanoxin Tab) 0.375 mg DAILY@1600 PO 01/13/17 16:00 02/12/17 15:59 01/13/17 17:06 0.375 MG Famotidine (Pepcid Tab) 20 mg BID PO 01/13/17 09:00 02/12/17 08:59 01/15/17 07:21 20 MG Isosorbide Mononitrate (Imdur Ext Rel Tab) 60 mg QAM PO 01/13/17 09:00 02/12/17 08:59 01/15/17 07:22 60 MG Lorazepam (Ativan Tab) 1 mg BID PO 01/12/17 22:00 02/11/17 21:59 01/15/17 07:32 1 MG Sertraline HCl (Zoloft Tab) 50 mg BID PO 01/13/17 09:00 02/12/17 08:59 01/15/17 07:22 50 MG Enoxaparin Sodium (Lovenox Inj) 40 mg DAILY SC 01/13/17 09:00 02/12/17 08:59 01/15/17 07:25 40 MG Acetaminophen (Tylenol Tab) 650 mg Q4H PRN PO 01/12/17 20:30 02/11/17 20:29 01/14/17 16:09 650 MG Al Hydrox/Mg Hydrox/Simethicone (Maalox Max Susp) 15 ml Q4H PRN PO 01/12/17 20:30 02/11/17 20:29 Magnesium Hydroxide (Milk Of Magnesia Susp) 30 ml Q12H PRN PO 01/12/17 20:30 02/11/17 20:29 Ondansetron HCl (Zofran Inj) 4 mg Q6H PRN IV 01/12/17 20:30 02/11/17 20:29 Nystatin (Mycostatin Powder) 1 appln BID EXT 01/13/17 09:00 02/12/17 08:59 01/15/17 07:23 1 APPLN Ioversol (Optiray 320) 111 ml UD PRN IV 01/12/17 21:15 01/16/17 21:14 Lactobacillus Acidophilus (Lactinex Granules Pack) 1 gm TIDM PO 01/13/17 07:30 02/12/17 07:59 01/15/17 11:30 1 GM Vancomycin HCl (Consult) 1 ea UD PRN N/A 01/12/17 22:00 02/11/17 21:59 Ipratropium [place] (Atrovent 0.02% 0.5MG/2.5ML Neb) 0.5 mg Q6R INH 01/13/17 03:00 02/12/17 02:59 01/15/17 07:16 0.5 MG Levalbuterol (Xopenex 1.25MG/ 0.5ML Neb) 1.25 mg Q6R INH 01/13/17 03:00 02/12/17 02:59 01/15/17 07:16 1.25 MG Piperacillin Sod/ Tazobactam Sod (Consult) 1 ea UD PRN N/A 01/13/17 02:15 02/12/17 02:14 Hydralazine HCl (HydrALAZINE INJ) 5 mg Q4H PRN IV. 01/13/17 04:45 02/12/17 04:44 01/14/17 21:15 5 MG Levofloxacin 750 mg/Prmx 150 ml @ 100 mls/hr Q24H IV 01/13/17 14:00 01/18/17 15:29 01/14/17 14:18 100 MLS/HR Guaifenesin (Mucinex Contr Rel Tab) 600 mg Q12 PO 01/13/17 21:00 02/12/17 20:59 01/15/17 09:00 600 MG Insulin Glargine (Lantus Solostar Pen) 30 unit BID SC 01/14/17 21:00 02/12/17 09:59 01/15/17 07:35 30 UNIT Indomethacin (Indocin Cap) 25 mg TID PO 01/14/17 21:00 01/15/17 14:01 01/15/17 07:20 25 MG Vancomycin HCl 1500 mg/Sodium Chloride 530 ml @ 200 mls/hr Q14H IV 01/15/17 08:00 01/20/17 23:59 01/15/17 07:31 200 MLS/HR Diltiazem HCl 125 mg/Dextrose 125 ml @ 0 mls/hr Q0M PRN IV 01/14/17 22:45 02/13/17 22:44 01/14/17 23:52 5 MLS/HR Vital Signs: Date Time Temp Pulse Resp B/P (MAP) Pulse Ox O2 Delivery O2 Flow Rate FiO2 01/15/17 12:40 36.5 54 18 192/50 (97) 96 01/15/17 12:10 Nasal Cannula 2.0 01/15/17 08:15 36.8 58 18 152/62 (92) 97 Nasal Cannula 01/15/17 08:00 Nasal Cannula 2.0 01/15/17 07:16 65 18 96 Nasal Cannula 2.0 01/15/17 04:00 36.6 70 20 154/74 (100) 96 Nasal Cannula 2.0 01/15/17 04:00 Nasal Cannula 2.0 01/15/17 00:00 36.9 98 21 148/82 (104) 93 Nasal Cannula 2.0 01/14/17 23:59 Nasal Cannula 2.0 01/14/17 20:29 37.0 62 20 185/70 (108) 95 Nasal Cannula 2.0 01/14/17 20:00 Nasal Cannula 2.0 01/14/17 19:20 68 18 96 Nasal Cannula 2.0 01/14/17 16:00 Nasal Cannula 2.0 01/14/17 16:00 55 01/14/17 15:40 37.1 61 18 152/61 (91) 95 Nasal Cannula 2.0 01/14/17 14:36 59 18 97 Nasal Cannula 2.0 Laboratory Results: Last 24 Hours Test 01/14/17 16:42 01/14/17 17:44 01/14/17 20:29 01/14/17 20:30 Bedside Glucose 291 mg/dl 214 mg/dl Vancomycin Level Trough 9.9 mcg/ml Test 01/15/17 04:34 01/15/17 06:30 White Blood Count 7.08 K/uL Red Blood Count 3.94 M/uL Hemoglobin 11.2 g/dL Hematocrit 34.7 % Mean Corpuscular Volume 88.1 fL Mean Corpuscular Hemoglobin 28.4 pg Mean Corpuscular Hemoglobin Concent 32.3 g/dl Platelet Count 156 K/uL Mean Platelet Volume 9.3 fL Neutrophils (%) (Auto) 73.6 % Lymphocytes (%) (Auto) 16.5 % Monocytes (%) (Auto) 6.8 % Eosinophils (%) (Auto) 2.4 % Basophils (%) (Auto) 0.4 % Neutrophils # (Auto) 5.21 K/uL Lymphocytes # (Auto) 1.17 K/uL Monocytes # (Auto) 0.48 K/uL Eosinophils # (Auto) 0.17 K/uL Basophils # (Auto) 0.03 K/uL RDW Standard Deviation 48.6 fL RDW Coefficient of Variation 15.0 % Immature Granulocyte % (Auto) 0.3 % Immature Granulocyte # (Auto) 0.02 K/uL Sodium Level 143 mmol/L Potassium Level 3.8 mmol/L Chloride Level 108 mmol/L Carbon Dioxide Level 29 mmol/L Anion Gap 6.0 mmol/L Blood Urea Nitrogen 20 mg/dl Creatinine 1.10 mg/dl Est Creatinine Clear Calc Drug Dose 54.5 ml/min Estimated GFR () 57.7 Estimated GFR (Non- 49.8 BUN/Creatinine Ratio 18.2 Random Glucose 170 mg/dl Calcium Level 8.1 mg/dl Troponin I 0.050 ng/ml Bedside Glucose 174 mg/dl
[2017-01-15] MEDS: LEVOFLOXACIN / D5W 750 MG in PREMIXED IN D5W 150 ML IV SCH (14:51)
[2017-01-15] MEDS: DIGOXIN 0.25 MG TAB PO SCH (16:00)
[2017-01-15 16:29] LABS: CKMB/CK RATIO 1.8 (0-3.0); MAGNESIUM 2.3 mg/dl (1.8-2.4); THYROID STIMULATING HORMONE 4.23 uIu/ml (0.300-4.500)
[2017-01-15] MEDS: LACTOBACILLUS ACIDOPHILUS (FLORANEX) TAB PO SCH (16:37)
[2017-01-15] MEDS ORDERED: SACCHAROMYCES BOUL (FLORASTOR) 250 MG CAP PO SCH (16:45)
[2017-01-15] MEDS: ATORVASTATIN 40 MG TAB PO SCH (21:27)
[2017-01-15] MEDS: HydrALAZINE HCL 20 MG/ML VIAL IV. PRN (21:33)
[2017-01-15] MEDS: ACETAMINOPHEN 325 MG TAB PO PRN (23:10)
[2017-01-16] VITALS (9 sets, daily range): BP systolic 156–211; BP diastolic 61–95; PULSE 53–86; TEMP 36.5–37.1; O2SAT 95–99
--- NOTE | 2017-01-16 01:13 | Progress Note ---
Subjective Date of Service: late entry for visit Jan 15, 2017. Subjective Pt evaluation today including: conversation w/ patient, physical exam, chart review, lab review, review of studies (EKGs), conversation w/ political consultant ( cardiology - [facility]), review of inpatient medication list Pain: had chest pain that started when the a. fib began last pm; self-resolved PO Intake: improving Voiding: no voiding problems had episode of a. fib last pm lasting 2-3 hours resoled with use of cardizem infusion she has never had a. fib before reports she sees cardiology in [place] has had CABG and multiple stents just saw her parking line painter about 2-3 weeks ago had echo stress test also planned no significant change in her pulmonary symptoms Problem List Medical Problems: (1) Hypoxia Status: Acute (2) Lung mass Status: Acute Review of Systems Constitutional: No fever, No chills Respiratory: + cough, + sputum, + wheezing, + dyspnea on exertion Cardiac: + see HPI, + chest pain, No orthopnea Musculoskeletal: + joint pain (right knee - but improved) Objective Vital Signs Date Time Temp Pulse Resp B/P (MAP) Pulse Ox O2 Delivery O2 Flow Rate FiO2 01/15/17 23:59 Nasal Cannula 2.0 01/15/17 23:42 37.0 68 18 182/70 (107) 96 Nasal Cannula 01/15/17 20:00 Nasal Cannula 2.0 01/15/17 19:36 62 18 98 Nasal Cannula 2.0 01/15/17 19:09 36.6 58 18 190/77 (114) 96 Nasal Cannula 2.0 Humidified Oxygen 01/15/17 16:00 67 01/15/17 15:28 Nasal Cannula 2.0 01/15/17 15:27 36.5 52 18 181/63 (102) 97 Nasal Cannula 2.0 Humidified Oxygen 01/15/17 14:34 62 18 98 Nasal Cannula 2.0 01/15/17 12:40 36.5 54 18 192/50 (97) 96 01/15/17 12:10 Nasal Cannula 2.0 01/15/17 08:15 36.8 58 18 152/62 (92) 97 Nasal Cannula 01/15/17 08:00 Nasal Cannula 2.0 01/15/17 07:16 65 18 96 Nasal Cannula 2.0 01/15/17 04:00 36.6 70 20 154/74 (100) 96 Nasal Cannula 2.0 01/15/17 04:00 Nasal Cannula 2.0 Physical Exam General Appearance: no apparent distress, + obese ENT: pharynx normal Neck: no JVD Respiratory/Chest: no respiratory distress, no accessory muscle use, + decreased breath sounds (left anterior chest), + crackles (left anterior chest) , + wheezing (scant b/l) Cardiovascular: regular rate, rhythm, no gallop, no murmur Abdomen: normal bowel sounds, non tender, soft, no organomegaly Extremities: no pedal edema Neurologic/Psychiatric: alert, oriented x 3 Laboratory Results Last 24 Hours Test 01/15/17 04:34 01/15/17 06:30 01/15/17 11:30 01/15/17 15:56 White Blood Count 7.08 K/uL Red Blood Count 3.94 M/uL Hemoglobin 11.2 g/dL Hematocrit 34.7 % Mean Corpuscular Volume 88.1 fL Mean Corpuscular Hemoglobin 28.4 pg Mean Corpuscular Hemoglobin Concent 32.3 g/dl Platelet Count 156 K/uL Mean Platelet Volume 9.3 fL Neutrophils (%) (Auto) 73.6 % Lymphocytes (%) (Auto) 16.5 % Monocytes (%) (Auto) 6.8 % Eosinophils (%) (Auto) 2.4 % Basophils (%) (Auto) 0.4 % Neutrophils # (Auto) 5.21 K/uL Lymphocytes # (Auto) 1.17 K/uL Monocytes # (Auto) 0.48 K/uL Eosinophils # (Auto) 0.17 K/uL Basophils # (Auto) 0.03 K/uL RDW Standard Deviation 48.6 fL RDW Coefficient of Variation 15.0 % Immature Granulocyte % (Auto) 0.3 % Immature Granulocyte # (Auto) 0.02 K/uL Sodium Level 143 mmol/L Potassium Level 3.8 mmol/L Chloride Level 108 mmol/L Carbon Dioxide Level 29 mmol/L Anion Gap 6.0 mmol/L Blood Urea Nitrogen 20 mg/dl Creatinine 1.10 mg/dl Est Creatinine Clear Calc Drug Dose 54.5 ml/min Estimated GFR () 57.7 Estimated GFR (Non- 49.8 BUN/Creatinine Ratio 18.2 Random Glucose 170 mg/dl Calcium Level 8.1 mg/dl Troponin I 0.050 ng/ml 0.025 ng/ml Bedside Glucose 174 mg/dl 207 mg/dl Magnesium Level 2.3 mg/dl Total Creatine Kinase 326 U/L Creatine Kinase MB 5.8 ng/ml Creatine Kinase MB Ratio 1.8 Thyroid Stimulating Hormone (TSH) 4.230 uIu/ml Test 01/15/17 16:32 Bedside Glucose 149 mg/dl Assessment and Plan 71yo female with: 1. BERNICE pneumonia - very large - vs mass. day #4 of IV abx (triple therapy). improving slowly. pulmonary following. may need bronch in the near future. cont supportive care. 2. 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 Improved s/p 3 doses of indocin. 3. T2DM - control improving with lantus and novolog adjustments. 4. atrial fibrillation - resolved. Checked TSH today - normal. Serial cardiac enzymes negative for ACS. EKG this afternoon with RBBB and LAFB but no ischemic changes. Likely due to physiological stress in the setting of #1. ECHO report requested from [place] cardiology. K and mag normal today. CHADS is at least a 2. Consider anticoagulation. 5. HTN - uncontrolled on complex regimen of meds. If still high in am then adjust meds then. 6. CAD s/p CABG and stents - had chest pain last pm. Unsure if her pain was ischemic in nature vs pain due to rapid a. fib vs other. Serial cardiac enzymes negative. Obtain records from parking line painter in [place]. 7. DVT proph - lovenox. PT, OT consults Continued [facility] stay due to: multiple IV medications needed Discharge planning: home
[2017-01-16] MEDS: IPRATROPIUM BROMIDE NEB SOLN 0.02% 2.5 ML VIAL INH SCH ×4 (01:47→19:36)
[2017-01-16] MEDS: LEVALBUTEROL 1.25MG/0.5ML NEB INH SCH ×4 (01:48→19:36)
[2017-01-16] MEDS: PIPERACILL/TAZOBAC IV 4.5 GM in DEXTROSE 5% 100ML 100 ML IV SCH ×3 (03:21→17:20)
[2017-01-16] MEDS: HydrALAZINE HCL 20 MG/ML VIAL IV. PRN ×2 (04:07→20:01)
[2017-01-16 07:05] LABS: BUN/CREATININE RATIO 19.7 (10-20); CREATININE 0.95 mg/dl (0.60-1.20); POTASSIUM 3.9 mmol/L (3.5-5.1)
[2017-01-16] MEDS: LORAZEPAM 1 MG TAB PO SCH ×2 (07:15→21:15)
[2017-01-16] MEDS: ISOSORBIDE MONONITRATE 60 MG TABCR PO SCH (07:15)
[2017-01-16] MEDS: FAMOTIDINE 20 MG TAB PO SCH ×2 (07:16→21:15)
[2017-01-16] MEDS: GUAIFENESIN 600 MG TABCR PO SCH ×2 (07:16→21:15)
[2017-01-16] MEDS: LACTOBACILLUS ACIDOPHILUS (FLORANEX) TAB PO SCH ×3 (07:16→17:23)
[2017-01-16 07:17] LABS: CALCIUM 8.5 mg/dl (8.5-10.1)
[2017-01-16] MEDS: CLOPIDOGREL BISULFATE 75 MG TAB PO SCH (07:17)
[2017-01-16] MEDS: CARVEDILOL 6.25 MG TAB PO SCH ×2 (07:17→21:15)
[2017-01-16] MEDS: ASPIRIN 325 MG ECTAB PO SCH (07:17)
[2017-01-16] MEDS: SERTRALINE HCL 50 MG TAB PO SCH ×2 (07:18→21:15)
[2017-01-16] MEDS: NYSTATIN POWDER 15GM BTL EXT SCH ×2 (07:19→21:15)
[2017-01-16] MEDS: ENOXAPARIN 40 MG/0.4 ML SYR SC SCH (07:19)
[2017-01-16] MEDS: INSULIN GLARGINE SOLOSTAR 100 UNITS/ML 3 ML PEN SC SCH ×2 (07:21→21:17)
[2017-01-16] MEDS: INSULIN ASPART 100 UNITS/ML 3 ML PEN SC SCH ×4 (07:43→21:00)
[2017-01-16] MEDS ORDERED: LISINOPRIL 20 MG TAB PO STA (07:47)
--- NOTE | 2017-01-16 09:01 | DIAGNOSTIC IMAGING REPORT ---
CHEST 2 VIEWS ROUTINE CLINICAL HISTORY: FU on BERNICE density COMPARISON STUDY: CT 01/12/2017 FINDINGS: No change in left upper lobe density. Lungs otherwise remain clear. IMPRESSION: No change in left upper lobe consolidated density. Continued close follow-up is suggested. Electronically signed by: Wang Warren M.D. 01/16/2017 9:00 AM Dictated Date/Time: 01/16/2017 8:58 AM
--- NOTE | 2017-01-16 10:33 | Pulmonology Progress Note ---
Pulmonary Progress Note Date of Service Jan 16, 2017. Attending Dr. Gregoria Guzmán The patient is a 71 yo female who reports she is a never smoker and had no family history of lung cancer or exposure to chemicals. She was admitted with BERNICE consolidation throught to be pneumonia, hemoptysis and cough as well as hypoxia. The patient says she had a lot of coughing last evening but is better today even after a meal (which usually illicits a lot of phlegm she was not coughing as much as before and no hemoptysis is noted. However, she says she is bringing up phlegm that is mostly brown. She does not have wheezing and the SOB is much better. However, she says she refused her meds yesterday and was having problems breathing and had to sit up in chair to feel better. It seems she is having probems with recent memory. She did not remember me or the hospitalist name althoug it is in front of her on the board. She also confused the episode of A fib for breathing problems. She had a self limiting A fib event yesterday and she is having cardiac eval. At least she remembered that something unusual happened yesterday and that they think something is wrong with her heart. Objective GENERAL: AAOx3 with no apparent distress she talks in full sentences. RR 16/ min SpO2 96% on 2 lit/min HEENT: Normocephalic, atraumatic. Pupils are equal, round, reactive. [place] moist gingival and buccal mucosa. NECK: Short, thick. No mass, adenopathy or bruit. CHEST: She had diminished breath sounds bilaterally. She has a fixed mild expiratory wheeze on the left. None on the right is heard today CARDIOVASCULAR: Regular rate and rhythm. No murmurs, gallops or rubs. ABDOMEN: Bowel sounds present. Obese, soft, nontender. No guarding, rigidity or organomegaly. EXTREMITIES: No erythema, trace edema, no cyanosis or clubbing noted. NEUROLOGIC: Cranial nerves II-XII are intact. No focal deficit noted. Assessment & Plan This is a 71-year-old female with a left upper lobe consolidation on CAT scan chest with probable pneumonia although cannot exclude underlying mass at this time. Clinically, she is showing some improvement. The appearance of the density is more for a mass than for infiltrates although there are some bronchograms at the lower end of the mass. However, she seems to be responding to antibiotics (this also could be an improvement in a postobstructive pneumonia component. There is a large L4 lymph node pneumonia BERNICE hemoptysis diarrhea resolved acute respiratory failure on O2 1- continue on Levaquin and vancomycin for a total of 7 days at least. Continue her on her nebulization with levalbuterol and ipratropium. 2- CXR in am shows persistent of the density BERNICE. It really appears as a mass and the patient may ultimately require bronch. The consent needs to be obtained from the son, though. I do not think she has the capacity to understand what is going on. 3. Hemoptysis. According to the patient, this is resolved today. 4. Coronary artery disease, stable but suggest to control the SBP with hydralazine or an afterload disposal plant operator (NICOLA) 5. clostridium deficile is negative. legionella antigen is pending. 6. pulmonary toiletting 7. She is already on prophylactic SC lovenox and therapeutic dose is contemplated given A fib SHe may need a bronch ultimately if the opacity does not improve. DEfer non respiratory management to the primary team. Will FU with PCP during this hospitalization Data Medications: Current Inpatient Medications Medications (Trade) Dose Ordered Sig/Alfredito Route Start Time Stop Time Status Last Admin Dose Admin Ioversol (Optiray 320) 125 ml UD PRN IV 01/12/17 12:45 01/16/17 12:44 Piperacillin Sod/ Tazobactam Sod 4.5 gm/Dextrose 120 ml @ 30 mls/hr Q8H IV 01/13/17 02:00 01/20/17 01:59 01/16/17 09:53 30 MLS/HR Insulin Aspart (novoLOG ASPART) SLIDING SCALE G... ACHS SC 01/13/17 07:00 02/12/17 06:59 01/16/17 07:43 14 UNITS Aspirin (Ecotrin Tab) 325 mg QAM PO 01/13/17 09:00 02/12/17 08:59 01/16/17 07:17 325 MG Atorvastatin Calcium (Lipitor Tab) 80 mg HS PO 01/13/17 21:00 02/12/17 20:59 01/15/17 21:27 80 MG Carvedilol (Coreg Tab) 6.25 mg BID PO 01/13/17 09:00 02/12/17 08:59 01/16/17 07:17 6.25 MG Clopidogrel Bisulfate (plAVix TAB) 75 mg QAM PO 01/13/17 09:00 02/12/17 08:59 01/16/17 07:17 75 MG Digoxin (Lanoxin Tab) 0.375 mg DAILY@1600 PO 01/13/17 16:00 02/12/17 15:59 01/15/17 16:00 0.375 MG Famotidine (Pepcid Tab) 20 mg BID PO 01/13/17 09:00 02/12/17 08:59 01/16/17 07:16 20 MG Isosorbide Mononitrate (Imdur Ext Rel Tab) 60 mg QAM PO 01/13/17 09:00 02/12/17 08:59 01/16/17 07:15 60 MG Lorazepam (Ativan Tab) 1 mg BID PO 01/12/17 22:00 02/11/17 21:59 01/16/17 07:15 1 MG Sertraline HCl (Zoloft Tab) 50 mg BID PO 01/13/17 09:00 02/12/17 08:59 01/16/17 07:18 50 MG Enoxaparin Sodium (Lovenox Inj) 40 mg DAILY SC 01/13/17 09:00 02/12/17 08:59 01/16/17 07:19 40 MG Acetaminophen (Tylenol Tab) 650 mg Q4H PRN PO 01/12/17 20:30 02/11/17 20:29 01/15/17 23:10 650 MG Al Hydrox/Mg Hydrox/Simethicone (Maalox Max Susp) 15 ml Q4H PRN PO 01/12/17 20:30 02/11/17 20:29 Magnesium Hydroxide (Milk Of Magnesia Susp) 30 ml Q12H PRN PO 01/12/17 20:30 02/11/17 20:29 Ondansetron HCl (Zofran Inj) 4 mg Q6H PRN IV 01/12/17 20:30 02/11/17 20:29 Nystatin (Mycostatin Powder) 1 appln BID EXT 01/13/17 09:00 02/12/17 08:59 01/16/17 07:19 1 APPLN Ioversol (Optiray 320) 111 ml UD PRN IV 01/12/17 21:15 01/16/17 21:14 Vancomycin HCl (Consult) 1 ea UD PRN N/A 01/12/17 22:00 02/11/17 21:59 Ipratropium [place] (Atrovent 0.02% 0.5MG/2.5ML Neb) 0.5 mg Q6R INH 01/13/17 03:00 02/12/17 02:59 01/16/17 07:08 0.5 MG Levalbuterol (Xopenex 1.25MG/ 0.5ML Neb) 1.25 mg Q6R INH 01/13/17 03:00 02/12/17 02:59 01/16/17 07:09 1.25 MG Piperacillin Sod/ Tazobactam Sod (Consult) 1 ea UD PRN N/A 01/13/17 02:15 02/12/17 02:14 Hydralazine HCl (HydrALAZINE INJ) 5 mg Q4H PRN IV. 01/13/17 04:45 02/12/17 04:44 01/16/17 04:07 5 MG Levofloxacin 750 mg/Prmx 150 ml @ 100 mls/hr Q24H IV 01/13/17 14:00 01/18/17 15:29 01/15/17 14:51 100 MLS/HR Guaifenesin (Mucinex Contr Rel Tab) 600 mg Q12 PO 01/13/17 21:00 02/12/17 20:59 01/16/17 07:16 600 MG Insulin Glargine (Lantus Solostar Pen) 30 unit BID SC 01/14/17 21:00 02/12/17 09:59 01/16/17 07:21 30 UNIT Vancomycin HCl 1500 mg/Sodium Chloride 530 ml @ 200 mls/hr Q14H IV 01/15/17 08:00 01/20/17 23:59 01/15/17 21:34 200 MLS/HR Diltiazem HCl 125 mg/Dextrose 125 ml @ 0 mls/hr Q0M PRN IV 01/14/17 22:45 02/13/17 22:44 01/14/17 23:52 5 MLS/HR Lactobacillus Acidophilus (Floranex Tab) 1 tab TIDM PO 01/15/17 16:45 02/14/17 16:44 01/16/17 07:16 1 TAB Lisinopril (Zestril Tab) 20 mg QAM PO 01/17/17 09:00 02/16/17 08:59 Vital Signs: Date Time Temp Pulse Resp B/P (MAP) Pulse Ox O2 Delivery O2 Flow Rate FiO2 01/16/17 08:31 36.6 85 16 169/61 (97) 96 Nasal Cannula 2.0 01/16/17 08:00 Nasal Cannula 2.0 01/16/17 07:09 70 18 98 Nasal Cannula 2.0 01/16/17 04:19 37.1 65 18 185/80 (115) 97 Nasal Cannula 01/16/17 04:00 Nasal Cannula 2.0 01/15/17 23:59 Nasal Cannula 2.0 01/15/17 23:42 37.0 68 18 182/70 (107) 96 Nasal Cannula 01/15/17 20:00 Nasal Cannula 2.0 01/15/17 19:36 62 18 98 Nasal Cannula 2.0 01/15/17 19:09 36.6 58 18 190/77 (114) 96 Nasal Cannula 2.0 Humidified Oxygen 01/15/17 16:00 67 01/15/17 15:28 Nasal Cannula 2.0 01/15/17 15:27 36.5 52 18 181/63 (102) 97 Nasal Cannula 2.0 Humidified Oxygen 01/15/17 14:34 62 18 98 Nasal Cannula 2.0 01/15/17 12:40 36.5 54 18 192/50 (97) 96 01/15/17 12:10 Nasal Cannula 2.0 Laboratory Results: Last 24 Hours Test 01/15/17 11:30 01/15/17 15:56 01/15/17 16:32 01/16/17 05:58 Bedside Glucose 207 mg/dl 149 mg/dl Magnesium Level 2.3 mg/dl Total Creatine Kinase 326 U/L Creatine Kinase MB 5.8 ng/ml Creatine Kinase MB Ratio 1.8 Troponin I 0.025 ng/ml Thyroid Stimulating Hormone (TSH) 4.230 uIu/ml Sodium Level 145 mmol/L Potassium Level 3.9 mmol/L Chloride Level 110 mmol/L Carbon Dioxide Level 28 mmol/L Anion Gap 7.0 mmol/L Blood Urea Nitrogen 19 mg/dl Creatinine 0.95 mg/dl Est Creatinine Clear Calc Drug Dose 63.4 ml/min Estimated GFR () 68.9 Estimated GFR (Non- 59.4 BUN/Creatinine Ratio 19.7 Random Glucose 122 mg/dl Calcium Level 8.5 mg/dl Test 01/16/17 06:48 Bedside Glucose 109 mg/dl
[2017-01-16] MEDS ORDERED: POTASSIUM CHLORIDE 10 MEQ TABCR PO STA (11:57)
[2017-01-16] MEDS ORDERED: MAGNESIUM OXIDE 400 MG TAB PO ONE (12:00)
[2017-01-16] MEDS ORDERED: FUROSEMIDE INJ 60 MG in SYRINGE 0 ML IV SCH (12:30)
[2017-01-16] MEDS: VANCOMYCIN INJ 1,500 MG in SODIUM CHLORIDE 0.9% 500ML 500 ML IV SCH (12:53)
[2017-01-16] MEDS: LEVOFLOXACIN / D5W 750 MG in PREMIXED IN D5W 150 ML IV SCH (14:00)
[2017-01-16] MEDS: DIGOXIN 0.25 MG TAB PO SCH (17:21)
[2017-01-16] MEDS: ATORVASTATIN 40 MG TAB PO SCH (21:15)
[2017-01-16] MEDS ORDERED: NITROGLYCERIN 0.4 MG/HR PATCH TD ONE (22:00)
[2017-01-16] MEDS ORDERED: MoRPHine SULFATE 2 MG/ML CARP IV ONE (22:00)
[2017-01-16] MEDS: ACETAMINOPHEN 325 MG TAB PO PRN (22:27)
--- NOTE | 2017-01-16 22:32 | Progress Note ---
Subjective Date of Service: Jan 16, 2017. Subjective Pt evaluation today including: conversation w/ patient, physical exam, chart review, lab review, review of studies (cxr), review of inpatient medication list Pain: right knee pain resolved PO Intake: fair/good Voiding: no voiding problems tele stable overnight no further runs of a. fib she reports that last night was "not so good" she had orthopnea and ended up sitting up in bed much of the night still with cough somewhat productive of sputum no hemoptysis no chest pain or palpitations having multiple stools but not diarrhea Problem List Medical Problems: (1) Hypoxia Status: Acute (2) Lung mass Status: Acute Review of Systems Constitutional: + fatigue, No fever, No chills Respiratory: + cough, + sputum, + wheezing, + shortness of breath, + dyspnea on exertion Cardiac: + orthopnea, + PND, + edema, No chest pain Abdomen: No pain Objective Vital Signs Date Time Temp Pulse Resp B/P (MAP) Pulse Ox O2 Delivery O2 Flow Rate FiO2 01/16/17 20:00 Nasal Cannula 2.0 01/16/17 19:54 36.5 65 20 206/73 (117) 99 Nasal Cannula 2.0 211/79 (123) 01/16/17 19:36 71 18 98 Nasal Cannula 2.0 01/16/17 17:21 61 01/16/17 16:00 Nasal Cannula 2.0 01/16/17 15:39 37.0 55 20 189/68 (108) 98 Nasal Cannula 2.0 200/70 (113) 01/16/17 14:09 60 18 98 Nasal Cannula 2.0 01/16/17 12:18 36.7 53 16 156/70 (98) 98 Nasal Cannula 01/16/17 11:27 Nasal Cannula 2.0 01/16/17 08:31 36.6 85 16 169/61 (97) 96 Nasal Cannula 2.0 01/16/17 08:00 Nasal Cannula 2.0 01/16/17 07:09 70 18 98 Nasal Cannula 2.0 01/16/17 04:19 37.1 65 18 185/80 (115) 97 Nasal Cannula 01/16/17 04:00 Nasal Cannula 2.0 01/15/17 23:59 Nasal Cannula 2.0 01/15/17 23:42 37.0 68 18 182/70 (107) 96 Nasal Cannula Physical Exam General Appearance: no apparent distress, + obese ENT: pharynx normal Neck: + JVD Respiratory/Chest: no respiratory distress, no accessory muscle use, + crackles (left anterior chest), + rales (bibasilar posteriorly) Cardiovascular: regular rate, rhythm, no gallop, no murmur Abdomen: normal bowel sounds, non tender, soft, no organomegaly Extremities: + pedal edema Neurologic/Psychiatric: alert, oriented x 3 Laboratory Results Last 24 Hours Test 01/16/17 05:58 01/16/17 06:48 01/16/17 11:35 01/16/17 20:12 Sodium Level 145 mmol/L Potassium Level 3.9 mmol/L Chloride Level 110 mmol/L Carbon Dioxide Level 28 mmol/L Anion Gap 7.0 mmol/L Blood Urea Nitrogen 19 mg/dl Creatinine 0.95 mg/dl Est Creatinine Clear Calc Drug Dose 63.4 ml/min Estimated GFR () 68.9 Estimated GFR (Non- 59.4 BUN/Creatinine Ratio 19.7 Random Glucose 122 mg/dl Calcium Level 8.5 mg/dl Bedside Glucose 109 mg/dl 105 mg/dl 90 mg/dl Assessment and Plan 71yo female with: 1. BERNICE pneumonia - very large - vs mass. day #5 of IV abx (zosyn, vanco, and levaquin). improvement has been limited. cxr without any significant change. pulmonary following. likely will need bronch in the near future for bx to r/o malignancy. cont supportive care. 2. 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 resolved w/ NSAIDs. 3. T2DM - now w/ adequate control with lantus and novolog adjustments. 4. atrial fibrillation - resolved. TSH normal. Serial cardiac enzymes negative for ACS. EKG after she converted back to NSR with RBBB and LAFB but no ischemic changes. PAF likely due to physiological stress in the setting of #1 but cannot r/o ischemia driven. CHADS is at least a 2. Consider anticoagulation. Patient follows with [facility] - Dr. Drummond (spelling?). She JUST had echo about 2-3 weeks ago. Oncoming MD - please attempt to obtain echo report on Tuesday01/17/17. 5. HTN - uncontrolled on complex regimen of meds. Restart lisinopril. Diurese. Hopefully BP will improve with improvement in her volume status. 6. CAD s/p CABG and stents - had chest pain in the setting of her rapid a.fib. Unsure if her pain was ischemic in nature vs pain due to rapid a. fib vs other. Serial cardiac enzymes negative. Obtain records from loader in [place]. 7. DVT proph - lovenox. 8. suspected acute/chronic CHF - again echo pending from outside cardiology group. lasix 60mg IV x 1 today. takes 80mg of po lasix daily at home. 9. anxiety - ativan 1mg BID (chronic usage at home). PT, OT consults leave on tele due to recent a. fib Continued [facility] stay due to: multiple IV medications needed Discharge planning: uncertain
[2017-01-17] VITALS (8 sets, daily range): BP systolic 168–196; BP diastolic 49–74; PULSE 50–70; TEMP 36.7–37; O2SAT 94–99
[2017-01-17] MEDS ORDERED: VANCOMYCIN TROUGH SCH (01:30)
[2017-01-17] MEDS: IPRATROPIUM BROMIDE NEB SOLN 0.02% 2.5 ML VIAL INH SCH ×4 (02:13→19:13)
[2017-01-17] MEDS: LEVALBUTEROL 1.25MG/0.5ML NEB INH SCH ×4 (02:13→19:13)
[2017-01-17] MEDS: PIPERACILL/TAZOBAC IV 4.5 GM in DEXTROSE 5% 100ML 100 ML IV SCH ×2 (03:32→10:32)
[2017-01-17] MEDS: VANCOMYCIN INJ 1,500 MG in SODIUM CHLORIDE 0.9% 500ML 500 ML IV SCH (03:32)
[2017-01-17] MEDS: HydrALAZINE HCL 20 MG/ML VIAL IV. PRN (04:13)
[2017-01-17 07:27] LABS: BUN/CREATININE RATIO 22.6 (10-20); CALCIUM 8.6 mg/dl (8.5-10.1); CREATININE 0.85 mg/dl (0.60-1.20); MAGNESIUM 2.3 mg/dl (1.8-2.4); POTASSIUM 3.7 mmol/L (3.5-5.1)
[2017-01-17] MEDS: INSULIN ASPART 100 UNITS/ML 3 ML PEN SC SCH ×4 (08:52→20:54)
[2017-01-17] MEDS: LACTOBACILLUS ACIDOPHILUS (FLORANEX) TAB PO SCH ×3 (08:53→17:42)
[2017-01-17] MEDS: SERTRALINE HCL 50 MG TAB PO SCH ×2 (08:54→19:41)
[2017-01-17] MEDS: NYSTATIN POWDER 15GM BTL EXT SCH ×2 (08:54→20:55)
[2017-01-17] MEDS: FAMOTIDINE 20 MG TAB PO SCH ×2 (08:54→19:41)
[2017-01-17] MEDS: CARVEDILOL 6.25 MG TAB PO SCH ×2 (08:55→19:40)
[2017-01-17] MEDS: ISOSORBIDE MONONITRATE 60 MG TABCR PO SCH (08:55)
[2017-01-17] MEDS: GUAIFENESIN 600 MG TABCR PO SCH ×2 (08:55→19:39)
[2017-01-17] MEDS: ASPIRIN 325 MG ECTAB PO SCH (08:55)
[2017-01-17] MEDS: CLOPIDOGREL BISULFATE 75 MG TAB PO SCH (08:55)
[2017-01-17] MEDS: LORAZEPAM 1 MG TAB PO SCH ×2 (09:00→20:57)
[2017-01-17] MEDS ORDERED: LISINOPRIL 20 MG TAB PO SCH (09:00)
[2017-01-17] MEDS: INSULIN GLARGINE SOLOSTAR 100 UNITS/ML 3 ML PEN SC SCH ×2 (09:01→20:56)
[2017-01-17] MEDS: ENOXAPARIN 40 MG/0.4 ML SYR SC SCH (09:03)
--- NOTE | 2017-01-17 11:18 | Progress Note ---
Subjective Date of Service: Jan 17, 2017. Subjective Pt evaluation today including: conversation w/ patient, conversation w/ family , physical exam, chart review, lab review pt oob to chair, resting, lethargic. no cough. no cp, no f/c. remaining limited. afebrile. sputum culture with nml fadi. cxr 01/16 unchanged. on day # 5 broad spectrum abx. no overnight events. tolerating abx. c diff negative, blood cultures negative. Problem List Medical Problems: (1) Hypoxia Status: Acute (2) Lung mass Status: Acute Objective Vital Signs Date Time Temp Pulse Resp B/P (MAP) Pulse Ox O2 Delivery O2 Flow Rate FiO2 01/17/17 08:13 36.8 66 18 168/70 (102) 94 01/17/17 07:07 65 18 98 Nasal Cannula 2.0 01/17/17 04:33 36.8 70 18 196/74 (114) 98 Nasal Cannula 01/17/17 04:00 Nasal Cannula 2.0 01/16/17 23:59 Nasal Cannula 2.0 01/16/17 23:45 36.9 86 18 182/95 (124) 95 Nasal Cannula 01/16/17 20:00 Nasal Cannula 2.0 01/16/17 19:54 36.5 65 20 206/73 (117) 99 Nasal Cannula 2.0 211/79 (123) 01/16/17 19:36 71 18 98 Nasal Cannula 2.0 01/16/17 17:21 61 01/16/17 16:00 Nasal Cannula 2.0 01/16/17 15:39 37.0 55 20 189/68 (108) 98 Nasal Cannula 2.0 200/70 (113) 01/16/17 14:09 60 18 98 Nasal Cannula 2.0 01/16/17 12:18 36.7 53 16 156/70 (98) 98 Nasal Cannula 01/16/17 11:27 Nasal Cannula 2.0 Physical Exam General Appearance: WD/WN, no apparent distress Eyes: normal inspection Neck: supple Respiratory/Chest: lungs clear, normal breath sounds, no respiratory distress Cardiovascular: no edema Abdomen: soft Extremities: non-tender Neurologic/Psychiatric: + pertinent finding (lethargic) Skin: normal color Laboratory Results Item Value Date Time Gram Stain - Final Complete 01/14/172029 Sputum Expectorated Sputum Blood Culture - Preliminary Resulted 01/12/17 1519 Blood NO GROWTH TO DATE. Blood Culture - Preliminary Resulted 01/12/17 1245 Blood NO GROWTH TO DATE. Last 24 Hours Test 01/16/17 11:35 01/16/17 20:12 01/16/17 22:32 01/17/17 01:49 Bedside Glucose 105 mg/dl 90 mg/dl 146 mg/dl Vancomycin Level Trough 17.8 mcg/ml Test 01/17/17 06:09 Sodium Level 144 mmol/L Potassium Level 3.7 mmol/L Chloride Level 110 mmol/L Carbon Dioxide Level 27 mmol/L Anion Gap 7.0 mmol/L Blood Urea Nitrogen 19 mg/dl Creatinine 0.85 mg/dl Est Creatinine Clear Calc Drug Dose 70.9 ml/min Estimated GFR () 78.8 Estimated GFR (Non- 68.0 BUN/Creatinine Ratio 22.6 Random Glucose 75 mg/dl Calcium Level 8.6 mg/dl Magnesium Level 2.3 mg/dl Assessment and Plan (1) Pneumonia Assessment & Plan: has completed 5 days abx. will stop vanco and zosyn as sputum negative. has completed course of levaquin for suspected CAP. will need repeat cxr in 4-6 to assess resolution of BERNICE density, if persists, will need biopsy. No new ID recs at this time. thank you (2) Fever Continued [facility] stay due to: multiple IV medications needed Discharge planning: uncertain
--- NOTE | 2017-01-17 12:34 | Progress Note ---
Subjective Date of Service: Jan 17, 2017. Subjective Pt evaluation today including: conversation w/ patient, physical exam, lab review, conversation w/ customer care consultant, review of inpatient medication list Pain: denies pain PO Intake: adequate Voiding: no voiding problems patient slept this AM, did not sleep well last night cough is productive, a few streaks of blood this AM overall she feels fatigued and breathing is not at baseline discussed case with Dr. Zendejas, he plans on performing bronchoscopy, will attempt tomorrow requested records from her primary manager dish Dr. Magaña in [place] Problem List Medical Problems: (1) Hypoxia Status: Acute (2) Lung mass Status: Acute Review of Systems Constitutional: + weakness Respiratory: + cough, + sputum, + shortness of breath, + dyspnea on exertion, + dyspnea at rest, + hemoptysis Neurologic: + weakness Psychiatric: + anxiety, + insomnia All Other Systems: Reviewed and Negative Medications Current Inpatient Medications Medications (Trade) Dose Ordered Sig/Alfredito Route Start Time Stop Time Status Last Admin Dose Admin Insulin Aspart (novoLOG ASPART) SLIDING SCALE G... ACHS SC 01/13/17 07:00 02/12/17 06:59 01/17/17 08:52 5 UNITS Aspirin (Ecotrin Tab) 325 mg QAM PO 01/13/17 09:00 02/12/17 08:59 01/17/17 08:55 325 MG Atorvastatin Calcium (Lipitor Tab) 80 mg HS PO 01/13/17 21:00 02/12/17 20:59 01/16/17 21:15 80 MG Carvedilol (Coreg Tab) 6.25 mg BID PO 01/13/17 09:00 02/12/17 08:59 01/17/17 08:55 6.25 MG Clopidogrel Bisulfate (plAVix TAB) 75 mg QAM PO 01/13/17 09:00 02/12/17 08:59 01/17/17 08:55 75 MG Digoxin (Lanoxin Tab) 0.375 mg DAILY@1600 PO 01/13/17 16:00 02/12/17 15:59 01/16/17 17:21 0.375 MG Famotidine (Pepcid Tab) 20 mg BID PO 01/13/17 09:00 02/12/17 08:59 01/17/17 08:54 20 MG Isosorbide Mononitrate (Imdur Ext Rel Tab) 60 mg QAM PO 01/13/17 09:00 02/12/17 08:59 01/17/17 08:55 60 MG Lorazepam (Ativan Tab) 1 mg BID PO 01/12/17 22:00 02/11/17 21:59 01/17/17 09:00 1 MG Sertraline HCl (Zoloft Tab) 50 mg BID PO 01/13/17 09:00 02/12/17 08:59 01/17/17 08:54 50 MG Enoxaparin Sodium (Lovenox Inj) 40 mg DAILY SC 01/13/17 09:00 02/12/17 08:59 01/17/17 09:03 40 MG Acetaminophen (Tylenol Tab) 650 mg Q4H PRN PO 01/12/17 20:30 02/11/17 20:29 01/16/17 22:27 650 MG Al Hydrox/Mg Hydrox/Simethicone (Maalox Max Susp) 15 ml Q4H PRN PO 01/12/17 20:30 02/11/17 20:29 Magnesium Hydroxide (Milk Of Magnesia Susp) 30 ml Q12H PRN PO 01/12/17 20:30 02/11/17 20:29 Ondansetron HCl (Zofran Inj) 4 mg Q6H PRN IV 01/12/17 20:30 02/11/17 20:29 Nystatin (Mycostatin Powder) 1 appln BID EXT 01/13/17 09:00 02/12/17 08:59 01/17/17 08:54 1 APPLN Ipratropium [place] (Atrovent 0.02% 0.5MG/2.5ML Neb) 0.5 mg Q6R INH 01/13/17 03:00 02/12/17 02:59 01/17/17 07:07 0.5 MG Levalbuterol (Xopenex 1.25MG/ 0.5ML Neb) 1.25 mg Q6R INH 01/13/17 03:00 02/12/17 02:59 01/17/17 07:07 1.25 MG Hydralazine HCl (HydrALAZINE INJ) 5 mg Q4H PRN IV. 01/13/17 04:45 02/12/17 04:44 01/17/17 04:13 5 MG Levofloxacin 750 mg/Prmx 150 ml @ 100 mls/hr Q24H IV 01/13/17 14:00 01/18/17 15:29 01/16/17 14:00 100 MLS/HR Guaifenesin (Mucinex Contr Rel Tab) 600 mg Q12 PO 01/13/17 21:00 02/12/17 20:59 01/17/17 08:55 600 MG Insulin Glargine (Lantus Solostar Pen) 30 unit BID SC 01/14/17 21:00 02/12/17 09:59 01/17/17 09:01 30 UNIT Lactobacillus Acidophilus (Floranex Tab) 1 tab TIDM PO 01/15/17 16:45 02/14/17 16:44 01/17/17 08:53 1 TAB Lisinopril (Zestril Tab) 20 mg QAM PO 01/17/17 09:00 02/16/17 08:59 01/17/17 08:54 20 MG Objective Vital Signs Date Time Temp Pulse Resp B/P (MAP) Pulse Ox O2 Delivery O2 Flow Rate FiO2 01/17/17 12:00 Nasal Cannula 2.0 01/17/17 08:13 36.8 66 18 168/70 (102) 94 01/17/17 08:00 Nasal Cannula 2.0 01/17/17 07:07 65 18 98 Nasal Cannula 2.0 01/17/17 04:33 36.8 70 18 196/74 (114) 98 Nasal Cannula 01/17/17 04:00 Nasal Cannula 2.0 01/16/17 23:59 Nasal Cannula 2.0 01/16/17 23:45 36.9 86 18 182/95 (124) 95 Nasal Cannula 01/16/17 20:00 Nasal Cannula 2.0 01/16/17 19:54 36.5 65 20 206/73 (117) 99 Nasal Cannula 2.0 211/79 (123) 01/16/17 19:36 71 18 98 Nasal Cannula 2.0 01/16/17 17:21 61 01/16/17 16:00 Nasal Cannula 2.0 01/16/17 15:39 37.0 55 20 189/68 (108) 98 Nasal Cannula 2.0 200/70 (113) 01/16/17 14:09 60 18 98 Nasal Cannula 2.0 Physical Exam General Appearance: WD/WN, no apparent distress Neck: supple, no adenopathy, no JVD, trachea midline Respiratory/Chest: chest non-tender, no respiratory distress, no accessory muscle use, + decreased breath sounds, + crackles Cardiovascular: regular rate, rhythm, no edema, no gallop, no JVD, no murmur Abdomen: normal bowel sounds, non tender, soft, no organomegaly Extremities: normal range of motion, non-tender, normal inspection, no pedal edema, no calf tenderness, pelvis stable Neurologic/Psychiatric: christian counselor II-XII nml as tested, no motor/sensory deficits, alert, normal mood/affect, oriented x 3 Skin: normal color, warm/dry, no rash Laboratory Results Last 24 Hours Test 01/16/17 20:12 01/16/17 22:32 01/17/17 01:49 01/17/17 06:09 Bedside Glucose 90 mg/dl 146 mg/dl Vancomycin Level Trough 17.8 mcg/ml Sodium Level 144 mmol/L Potassium Level 3.7 mmol/L Chloride Level 110 mmol/L Carbon Dioxide Level 27 mmol/L Anion Gap 7.0 mmol/L Blood Urea Nitrogen 19 mg/dl Creatinine 0.85 mg/dl Est Creatinine Clear Calc Drug Dose 70.9 ml/min Estimated GFR () 78.8 Estimated GFR (Non- 68.0 BUN/Creatinine Ratio 22.6 Random Glucose 75 mg/dl Calcium Level 8.6 mg/dl Magnesium Level 2.3 mg/dl Assessment and Plan 71yo female with h/o CAD s/p CABG and stents, presented with BERNICE pneumonia, very dense, appeared to be consistent with possible lung mass - BERNICE pneumonia vs possible lung mass day 6 of Zosyn, Vanco, Levaquin, no change on CXR hemoptysis this AM d/w Dr. Zendejas, plan for bronchoscopy, possibly tomorrow continue nebulizers - Paroxysmal atrial fibrillation: resolved continue Digoxin, Coreg not currently on full anticoagulation, holding due to bronchoscopy awaiting recent echo from [place] [facility] keep on tele today - CAD with h/o CABG, stents: no chest pain continue aspirin, Plavix, Coreg, statin - DM type II: continue Lantus and Novolog - HTN: poorly controlled, systolic readings in 190's and 200's on Coreg, Lisinopril, Imdur can increase the Lisinopril to 40mg HR in 60's so no room for Coreg titration consider adding Hydralazine 25mg TID - Acute on chronic heart failure: unsure if diastolic or systolic, awaiting echo report from [place] continue Lasix 80mg PO daily DVT proph: Lovenox PT, OT consults leave on tele due to recent a. fib Continued [facility] stay due to: multiple IV medications needed Discharge planning: uncertain
--- NOTE | 2017-01-17 13:44 | Pulmonology Progress Note ---
Pulmonary Progress Note Date of Service Jan 17, 2017. Attending Dr. Zendejas Subjective Patient is doing well today but continues to have sinusitis and shortness of breath: Objective Patient is doing well she was able to complete full sentences without using accessory muscles or showing signs of respiratory insufficiency or fatigue: Medications: #1 Mucinex 600 mg twice daily #2 levofloxacin 750 mg daily #3 aspirin 325 mg daily #4 Plavix 75 mg daily #5 Lovenox 40 mg daily #6 Xopenex/Atrovent nebulizer every 6 hours GENERAL: AAOx3 and SpO2 stable on 2 lit/min HEENT: Normocephalic, atraumatic. Pupils are equal, round, reactive. [place] moist gingival and buccal mucosa. NECK: Short, thick. No mass, adenopathy or bruit. CHEST: Decreased breath sounds bilaterally with mild dullness to percussion and auscultation the left upper lobe anterior subsegment CARDIOVASCULAR: Regular rate and rhythm unable to auscultate for murmurs rubs or gallops ABDOMEN: Bowel sounds present. Obese, soft, nontender. No guarding, EXTREMITIES: 2+ Refill in upper and lower extremities with 2+ pitting edema bilateral lower extremities Assessment & Plan This is a 71-year-old female with a left upper lobe consolidation versus mass 1. ID: Patient has completed her course of Levaquin and infectious disease has decided to discontinue the Zosyn and vancomycin at this time. I agree with this evaluation and will perform bronchoscopy as soon as possible please see section 3. 2. Respiratory: nebulization with levalbuterol and ipratropium. 3. Left upper lobe mass versus opacification: This time well initiate patient on chest physiotherapy and at [facility] for aggressive pulmonary toilet. I like to perform bronchoscopy with endobronchial biopsies but at this time the patient is on Plavix and aspirin we will need to discontinue these for at least a 5 day window. Due to this the patients earliest time for bronchoscopic intervention would be Tuesday of next week. 4. Contact: I have attempted to contact the patient's daughter Shelli Ambriz or (cell) with no luck at this time. I will continue to try and set up a family conference about this issue. Will FU with PCP during this hospitalization Data Medications: Current Inpatient Medications Medications (Trade) Dose Ordered Sig/Alfredito Route Start Time Stop Time Status Last Admin Dose Admin Insulin Aspart (novoLOG ASPART) SLIDING SCALE G... ACHS SC 01/13/17 07:00 02/12/17 06:59 01/17/17 12:49 6 UNITS Aspirin (Ecotrin Tab) 325 mg QAM PO 01/13/17 09:00 02/12/17 08:59 01/17/17 08:55 325 MG Atorvastatin Calcium (Lipitor Tab) 80 mg HS PO 01/13/17 21:00 02/12/17 20:59 01/16/17 21:15 80 MG Carvedilol (Coreg Tab) 6.25 mg BID PO 01/13/17 09:00 02/12/17 08:59 01/17/17 08:55 6.25 MG Clopidogrel Bisulfate (plAVix TAB) 75 mg QAM PO 01/13/17 09:00 02/12/17 08:59 01/17/17 08:55 75 MG Digoxin (Lanoxin Tab) 0.375 mg DAILY@1600 PO 01/13/17 16:00 02/12/17 15:59 01/16/17 17:21 0.375 MG Famotidine (Pepcid Tab) 20 mg BID PO 01/13/17 09:00 02/12/17 08:59 01/17/17 08:54 20 MG Isosorbide Mononitrate (Imdur Ext Rel Tab) 60 mg QAM PO 01/13/17 09:00 02/12/17 08:59 01/17/17 08:55 60 MG Lorazepam (Ativan Tab) 1 mg BID PO 01/12/17 22:00 02/11/17 21:59 01/17/17 09:00 1 MG Sertraline HCl (Zoloft Tab) 50 mg BID PO 01/13/17 09:00 02/12/17 08:59 01/17/17 08:54 50 MG Enoxaparin Sodium (Lovenox Inj) 40 mg DAILY SC 01/13/17 09:00 02/12/17 08:59 01/17/17 09:03 40 MG Acetaminophen (Tylenol Tab) 650 mg Q4H PRN PO 01/12/17 20:30 02/11/17 20:29 01/16/17 22:27 650 MG Al Hydrox/Mg Hydrox/Simethicone (Maalox Max Susp) 15 ml Q4H PRN PO 01/12/17 20:30 02/11/17 20:29 Magnesium Hydroxide (Milk Of Magnesia Susp) 30 ml Q12H PRN PO 01/12/17 20:30 02/11/17 20:29 Ondansetron HCl (Zofran Inj) 4 mg Q6H PRN IV 01/12/17 20:30 02/11/17 20:29 Nystatin (Mycostatin Powder) 1 appln BID EXT 01/13/17 09:00 02/12/17 08:59 01/17/17 08:54 1 APPLN Ipratropium [place] (Atrovent 0.02% 0.5MG/2.5ML Neb) 0.5 mg Q6R INH 01/13/17 03:00 02/12/17 02:59 01/17/17 07:07 0.5 MG Levalbuterol (Xopenex 1.25MG/ 0.5ML Neb) 1.25 mg Q6R INH 01/13/17 03:00 02/12/17 02:59 01/17/17 07:07 1.25 MG Hydralazine HCl (HydrALAZINE INJ) 5 mg Q4H PRN IV. 01/13/17 04:45 02/12/17 04:44 01/17/17 04:13 5 MG Levofloxacin 750 mg/Prmx 150 ml @ 100 mls/hr Q24H IV 01/13/17 14:00 01/18/17 15:29 01/16/17 14:00 100 MLS/HR Guaifenesin (Mucinex Contr Rel Tab) 600 mg Q12 PO 01/13/17 21:00 02/12/17 20:59 01/17/17 08:55 600 MG Insulin Glargine (Lantus Solostar Pen) 30 unit BID SC 01/14/17 21:00 02/12/17 09:59 01/17/17 09:01 30 UNIT Lactobacillus Acidophilus (Floranex Tab) 1 tab TIDM PO 01/15/17 16:45 02/14/17 16:44 01/17/17 11:30 1 TAB Lisinopril (Zestril Tab) 40 mg QAM PO 01/18/17 09:00 02/16/17 08:59 Furosemide (Lasix Tab) 80 mg QAM PO 01/18/17 09:00 02/17/17 08:59 Vital Signs: Date Time Temp Pulse Resp B/P (MAP) Pulse Ox O2 Delivery O2 Flow Rate FiO2 01/17/17 12:00 Nasal Cannula 2.0 01/17/17 12:00 37.0 60 18 169/69 (102) 95 Nasal Cannula 2.0 01/17/17 08:13 36.8 66 18 168/70 (102) 94 01/17/17 08:00 Nasal Cannula 2.0 01/17/17 07:07 65 18 98 Nasal Cannula 2.0 01/17/17 04:33 36.8 70 18 196/74 (114) 98 Nasal Cannula 01/17/17 04:00 Nasal Cannula 2.0 01/16/17 23:59 Nasal Cannula 2.0 01/16/17 23:45 36.9 86 18 182/95 (124) 95 Nasal Cannula 01/16/17 20:00 Nasal Cannula 2.0 01/16/17 19:54 36.5 65 20 206/73 (117) 99 Nasal Cannula 2.0 211/79 (123) 01/16/17 19:36 71 18 98 Nasal Cannula 2.0 01/16/17 17:21 61 01/16/17 16:00 Nasal Cannula 2.0 01/16/17 15:39 37.0 55 20 189/68 (108) 98 Nasal Cannula 2.0 200/70 (113) 01/16/17 14:09 60 18 98 Nasal Cannula 2.0 Laboratory Results: Last 24 Hours Test 01/16/17 20:12 01/16/17 22:32 01/17/17 01:49 01/17/17 06:09 Bedside Glucose 90 mg/dl 146 mg/dl Vancomycin Level Trough 17.8 mcg/ml Sodium Level 144 mmol/L Potassium Level 3.7 mmol/L Chloride Level 110 mmol/L Carbon Dioxide Level 27 mmol/L Anion Gap 7.0 mmol/L Blood Urea Nitrogen 19 mg/dl Creatinine 0.85 mg/dl Est Creatinine Clear Calc Drug Dose 70.9 ml/min Estimated GFR () 78.8 Estimated GFR (Non- 68.0 BUN/Creatinine Ratio 22.6 Random Glucose 75 mg/dl Calcium Level 8.6 mg/dl Magnesium Level 2.3 mg/dl Test 01/17/17 11:42 Bedside Glucose 194 mg/dl
[2017-01-17] MEDS: LEVOFLOXACIN / D5W 750 MG in PREMIXED IN D5W 150 ML IV SCH ×2 (14:02→15:33)
[2017-01-17] MEDS: DIGOXIN 0.25 MG TAB PO SCH (17:42)
[2017-01-17] MEDS: ATORVASTATIN 40 MG TAB PO SCH (19:40)
[2017-01-18] VITALS (13 sets, daily range): BP systolic 159–189; BP diastolic 48–85; PULSE 50–125; TEMP 36.6–37.1; O2SAT 93–99; Ht 160 cm; Wt 112.8 kg
[2017-01-18] MEDS: HydrALAZINE HCL 20 MG/ML VIAL IV. PRN ×3 (00:21→21:32)
[2017-01-18] MEDS: LEVALBUTEROL 1.25MG/0.5ML NEB INH SCH ×4 (01:45→19:38)
[2017-01-18] MEDS: IPRATROPIUM BROMIDE NEB SOLN 0.02% 2.5 ML VIAL INH SCH ×4 (01:45→19:38)
[2017-01-18] MEDS ORDERED: NURSING VERBAL MED ORDER ONE (05:30)
[2017-01-18] MEDS ORDERED: HydrALAZINE HCL 20 MG/ML VIAL IV. ONE (05:45)
[2017-01-18 06:22] LABS: HEMATOCRIT 37.7 % (37-47); MEAN CELL VOLUME 87.7 fL (80-100); MEAN CORPUSCULAR HEMOGLOBIN 27.7 pg (25-34); MEAN CORPUSCULAR HGB CONC 31.6 g/dl (32-36); MEAN PLATELET VOLUME 8.9 fL (7.4-10.4); PLATELET COUNT 197 K/uL (130-400); WHITE BLOOD COUNT 7.79 K/uL (4.8-10.8)
[2017-01-18 06:53] LABS: CREATININE 0.83 mg/dl (0.60-1.20)
[2017-01-18] MEDS: INSULIN ASPART 100 UNITS/ML 3 ML PEN SC SCH ×4 (07:00→20:31)
[2017-01-18] MEDS: LACTOBACILLUS ACIDOPHILUS (FLORANEX) TAB PO SCH ×3 (07:31→18:01)
[2017-01-18] MEDS: FAMOTIDINE 20 MG TAB PO SCH ×2 (07:31→20:03)
[2017-01-18] MEDS: CARVEDILOL 6.25 MG TAB PO SCH ×2 (07:32→20:04)
[2017-01-18] MEDS: CLOPIDOGREL BISULFATE 75 MG TAB PO SCH (07:32)
[2017-01-18] MEDS: GUAIFENESIN 600 MG TABCR PO SCH ×2 (07:32→20:05)
[2017-01-18] MEDS: ASPIRIN 325 MG ECTAB PO SCH (07:33)
[2017-01-18] MEDS: ISOSORBIDE MONONITRATE 60 MG TABCR PO SCH (07:33)
[2017-01-18] MEDS: FUROSEMIDE 80 MG TAB PO SCH (07:33)
[2017-01-18] MEDS: LISINOPRIL 40 MG TAB PO SCH (07:34)
[2017-01-18] MEDS: ENOXAPARIN 40 MG/0.4 ML SYR SC SCH (07:35)
[2017-01-18] MEDS: SERTRALINE HCL 50 MG TAB PO SCH ×2 (07:35→20:03)
[2017-01-18] MEDS: NYSTATIN POWDER 15GM BTL EXT SCH ×2 (07:36→20:30)
[2017-01-18] MEDS: INSULIN GLARGINE SOLOSTAR 100 UNITS/ML 3 ML PEN SC SCH ×2 (07:38→20:32)
[2017-01-18] MEDS: LORAZEPAM 1 MG TAB PO SCH ×2 (07:43→20:36)
[2017-01-18] MEDS: AMLODIPINE BESYLATE 5 MG TAB PO SCH (10:09)
[2017-01-18 11:14] LABS: LEGIONELLA ANTIGEN NOT DETECTED (NOT DETECTED)
[2017-01-18 12:07] LABS: BUN/CREATININE RATIO 19.6 (10-20); CREATININE 0.85 mg/dl (0.60-1.20)
--- NOTE | 2017-01-18 12:48 | Pulmonology Progress Note ---
Pulmonary Progress Note Date of Service Jan 18, 2017. Attending Dr. Zendejas Subjective No acute change. Continues to note SOB and fatigue Objective Patient is doing well she was able to complete full sentences without using accessory muscles or showing signs of respiratory insufficiency or fatigue: Medications: #1 Mucinex 600 mg twice daily #2 levofloxacin 750 mg daily -#--3- -[id number]-i-r-i-n- -3-2-5- -m-g- -d-a-i-l-y- -#--4- -Y-m-j-v-i-x- -7-5- -m-g- -d-a-i-l-y- #5 Lovenox 40 mg daily #6 Xopenex/Atrovent nebulizer every 6 hours GENERAL: AAOx3 and SpO2 stable on 2 lit/min HEENT: Normocephalic, atraumatic. Pupils are equal, round, reactive. [place] moist gingival and buccal mucosa. NECK: Short, thick. No mass, adenopathy or bruit. CHEST: Decreased breath sounds bilaterally with mild dullness to percussion and auscultation the left upper lobe anterior subsegment CARDIOVASCULAR: Regular rate and rhythm unable to auscultate for murmurs rubs or gallops ABDOMEN: Bowel sounds present. Obese, soft, nontender. No guarding, EXTREMITIES: 2+ Refill in upper and lower extremities with 2+ pitting edema bilateral lower extremities Assessment & Plan This is a 71-year-old female with a left upper lobe consolidation versus mass 1. ID: Currently on Levaquin 750mg QD 2. Respiratory: nebulization with levalbuterol and ipratropium. 3.BERNICE mass v.s opacification: Set up for bronchoscopy on Tuesday01/24/17 if patient stable at that time. Currently off Plavix and ASA 4. Contact: Daughter Shelli Ambriz or (cell) will attempt to contact today again. Will FU with PCP during this hospitalization Data Medications: Current Inpatient Medications Medications (Trade) Dose Ordered Sig/Alfredito Route Start Time Stop Time Status Last Admin Dose Admin Insulin Aspart (novoLOG ASPART) SLIDING SCALE Susan GAMEZS [place] 01/13/17 07:00 02/12/17 06:59 01/17/17 17:54 8 UNITS Atorvastatin Calcium (Lipitor Tab) 80 mg HS PO 01/13/17 21:00 02/12/17 20:59 01/17/17 19:40 80 MG Carvedilol (Coreg Tab) 6.25 mg BID PO 01/13/17 09:00 02/12/17 08:59 01/18/17 07:32 6.25 MG Digoxin (Lanoxin Tab) 0.375 mg DAILY@1600 PO 01/13/17 16:00 02/12/17 15:59 Future Hold 01/17/17 17:42 0.375 MG Famotidine (Pepcid Tab) 20 mg BID PO 01/13/17 09:00 02/12/17 08:59 01/18/17 07:31 20 MG Isosorbide Mononitrate (Imdur Ext Rel Tab) 60 mg QAM PO 01/13/17 09:00 02/12/17 08:59 01/18/17 07:33 60 MG Lorazepam (Ativan Tab) 1 mg BID PO 01/12/17 22:00 02/11/17 21:59 01/18/17 07:43 1 MG Sertraline HCl (Zoloft Tab) 50 mg BID PO 01/13/17 09:00 02/12/17 08:59 01/18/17 07:35 50 MG Enoxaparin Sodium (Lovenox Inj) 40 mg DAILY SC 01/13/17 09:00 02/12/17 08:59 01/18/17 07:35 40 MG Acetaminophen (Tylenol Tab) 650 mg Q4H PRN PO 01/12/17 20:30 02/11/17 20:29 01/16/17 22:27 650 MG Al Hydrox/Mg Hydrox/Simethicone (Maalox Max Susp) 15 ml Q4H PRN PO 01/12/17 20:30 02/11/17 20:29 Magnesium Hydroxide (Milk Of Magnesia Susp) 30 ml Q12H PRN PO 01/12/17 20:30 02/11/17 20:29 Ondansetron HCl (Zofran Inj) 4 mg Q6H PRN IV 01/12/17 20:30 02/11/17 20:29 Nystatin (Mycostatin Powder) 1 appln BID EXT 01/13/17 09:00 02/12/17 08:59 01/18/17 07:36 1 APPLN Ipratropium [place] (Atrovent 0.02% 0.5MG/2.5ML Neb) 0.5 mg Q6R INH 01/13/17 03:00 02/12/17 02:59 01/18/17 07:12 0.5 MG Levalbuterol (Xopenex 1.25MG/ 0.5ML Neb) 1.25 mg Q6R INH 01/13/17 03:00 02/12/17 02:59 01/18/17 07:12 1.25 MG Levofloxacin 750 mg/Prmx 150 ml @ 100 mls/hr Q24H IV 01/13/17 14:00 01/18/17 15:29 01/17/17 15:33 100 MLS/HR Guaifenesin (Mucinex Contr Rel Tab) 600 mg Q12 PO 01/13/17 21:00 02/12/17 20:59 01/18/17 07:32 600 MG Insulin Glargine (Lantus Solostar Pen) 30 unit BID SC 01/14/17 21:00 02/12/17 09:59 01/18/17 07:38 30 UNIT Lactobacillus Acidophilus (Floranex Tab) 1 tab TIDM PO 01/15/17 16:45 02/14/17 16:44 01/18/17 07:31 1 TAB Lisinopril (Zestril Tab) 40 mg QAM PO 01/18/17 09:00 02/16/17 08:59 01/18/17 07:34 40 MG Furosemide (Lasix Tab) 80 mg QAM PO 01/18/17 09:00 02/17/17 08:59 01/18/17 07:33 80 MG Hydralazine HCl (HydrALAZINE INJ) 10 mg Q4H PRN IV. 01/18/17 05:45 02/17/17 05:44 Amlodipine Besylate (Norvasc Tab) 5 mg QAM PO 01/18/17 09:00 02/17/17 08:59 01/18/17 10:09 5 MG Vital Signs: Date Time Temp Pulse Resp B/P (MAP) Pulse Ox O2 Delivery O2 Flow Rate FiO2 01/18/17 11:15 Nasal Cannula 2.0 01/18/17 11:01 36.6 83 18 159/70 (99) 97 Nasal Cannula 2.0 01/18/17 08:00 Nasal Cannula 2.0 01/18/17 07:54 36.8 84 20 189/64 (105) 94 Nasal Cannula 2.0 01/18/17 07:14 77 16 98 Nasal Cannula 2.0 01/18/17 05:15 182/63 (102) 01/18/17 04:00 Nasal Cannula 2.0 01/18/17 03:09 37.1 71 22 188/48 (94) 93 Nasal Cannula 2.0 01/18/17 02:11 169/67 (101) 01/18/17 01:45 50 16 99 Nasal Cannula 2.0 01/18/17 00:25 Nasal Cannula 2.0 01/18/17 00:12 36.9 62 21 188/67 (107) 94 Nasal Cannula 2.0 01/17/17 20:00 Nasal Cannula 2.0 01/17/17 19:23 36.9 67 21 194/49 (97) 97 Nasal Cannula 2.0 01/17/17 19:13 50 16 99 Nasal Cannula 2.0 01/17/17 17:42 65 01/17/17 16:00 Nasal Cannula 2.0 01/17/17 16:00 36.7 66 16 180/73 (108) 97 Nasal Cannula 2.0 01/17/17 14:04 56 16 99 Nasal Cannula 2.0 Laboratory Results: Last 24 Hours Test 01/17/17 16:20 01/17/17 20:22 01/18/17 06:00 01/18/17 06:53 Bedside Glucose 159 mg/dl 112 mg/dl 61 mg/dl White Blood Count 7.79 K/uL Red Blood Count 4.30 M/uL Hemoglobin 11.9 g/dL Hematocrit 37.7 % Mean Corpuscular Volume 87.7 fL Mean Corpuscular Hemoglobin 27.7 pg Mean Corpuscular Hemoglobin Concent 31.6 g/dl RDW Standard Deviation 47.9 fL RDW Coefficient of Variation 14.9 % Platelet Count 197 K/uL Mean Platelet Volume 8.9 fL Creatinine 0.83 mg/dl Est Creatinine Clear Calc Drug Dose 72.6 ml/min Estimated GFR () 81.1 Estimated GFR (Non- 70.0 Test 01/18/17 07:08 01/18/17 11:27 Bedside Glucose 71 mg/dl Sodium Level 142 mmol/L Potassium Level 4.0 mmol/L Chloride Level 108 mmol/L Carbon Dioxide Level 28 mmol/L Anion Gap 6.0 mmol/L Blood Urea Nitrogen 17 mg/dl Creatinine 0.85 mg/dl Est Creatinine Clear Calc Drug Dose 71.1 ml/min Estimated GFR () 78.8 Estimated GFR (Non- 68.0 BUN/Creatinine Ratio 19.6 Random Glucose 120 mg/dl Digoxin Level 1.2 ng/ml
[2017-01-18 13:28] LABS: CALCIUM 8.9 mg/dl (8.5-10.1)
[2017-01-18] MEDS: LEVOFLOXACIN / D5W 750 MG in PREMIXED IN D5W 150 ML IV SCH (15:08)
--- NOTE | 2017-01-18 16:01 | Progress Note ---
Subjective Date of Service: Jan 18, 2017. Subjective Pt evaluation today including: conversation w/ patient, physical exam, lab review, review of inpatient medication list Pain: denies pain PO Intake: adequate Voiding: no voiding problems continues to have dyspnea on exertion and productive cough reviewed tele, two separate 3 second pauses, baseline atrial fibrillation discussed with Dr. Salazar, he is going to refer case to EP to evaluate for pacer no symptoms with the pauses Plavix and aspirin held, anticipate bronchoscopy next week as outpatient Problem List Medical Problems: (1) Hypoxia Status: Acute (2) Lung mass Status: Acute Review of Systems Constitutional: + weakness, + fatigue Respiratory: + cough, + sputum, + shortness of breath, + dyspnea on exertion All Other Systems: Reviewed and Negative Medications Current Inpatient Medications Medications (Trade) Dose Ordered Sig/Alfredito Route Start Time Stop Time Status Last Admin Dose Admin Insulin Aspart (novoLOG ASPART) SLIDING SCALE G... ACHS SC 01/13/17 07:00 02/12/17 06:59 01/17/17 17:54 8 UNITS Atorvastatin Calcium (Lipitor Tab) 80 mg HS PO 01/13/17 21:00 02/12/17 20:59 01/17/17 19:40 80 MG Carvedilol (Coreg Tab) 6.25 mg BID PO 01/13/17 09:00 02/12/17 08:59 01/18/17 07:32 6.25 MG Digoxin (Lanoxin Tab) 0.375 mg DAILY@1600 PO 01/13/17 16:00 02/12/17 15:59 Future Hold 01/17/17 17:42 0.375 MG Famotidine (Pepcid Tab) 20 mg BID PO 01/13/17 09:00 02/12/17 08:59 01/18/17 07:31 20 MG Isosorbide Mononitrate (Imdur Ext Rel Tab) 60 mg QAM PO 01/13/17 09:00 02/12/17 08:59 01/18/17 07:33 60 MG Lorazepam (Ativan Tab) 1 mg BID PO 01/12/17 22:00 02/11/17 21:59 01/18/17 07:43 1 MG Sertraline HCl (Zoloft Tab) 50 mg BID PO 01/13/17 09:00 02/12/17 08:59 01/18/17 07:35 50 MG Enoxaparin Sodium (Lovenox Inj) 40 mg DAILY SC 01/13/17 09:00 02/12/17 08:59 01/18/17 07:35 40 MG Acetaminophen (Tylenol Tab) 650 mg Q4H PRN PO 01/12/17 20:30 02/11/17 20:29 01/16/17 22:27 650 MG Al Hydrox/Mg Hydrox/Simethicone (Maalox Max Susp) 15 ml Q4H PRN PO 01/12/17 20:30 02/11/17 20:29 Magnesium Hydroxide (Milk Of Magnesia Susp) 30 ml Q12H PRN PO 01/12/17 20:30 02/11/17 20:29 Ondansetron HCl (Zofran Inj) 4 mg Q6H PRN IV 01/12/17 20:30 02/11/17 20:29 Nystatin (Mycostatin Powder) 1 appln BID EXT 01/13/17 09:00 02/12/17 08:59 01/18/17 07:36 1 APPLN Ipratropium [place] (Atrovent 0.02% 0.5MG/2.5ML Neb) 0.5 mg Q6R INH 01/13/17 03:00 02/12/17 02:59 01/18/17 07:12 0.5 MG Levalbuterol (Xopenex 1.25MG/ 0.5ML Neb) 1.25 mg Q6R INH 01/13/17 03:00 02/12/17 02:59 01/18/17 07:12 1.25 MG Guaifenesin (Mucinex Contr Rel Tab) 600 mg Q12 PO 01/13/17 21:00 02/12/17 20:59 01/18/17 07:32 600 MG Insulin Glargine (Lantus Solostar Pen) 30 unit BID SC 01/14/17 21:00 02/12/17 09:59 01/18/17 07:38 30 UNIT Lactobacillus Acidophilus (Floranex Tab) 1 tab TIDM PO 01/15/17 16:45 02/14/17 16:44 01/18/17 11:30 1 TAB Lisinopril (Zestril Tab) 40 mg QAM PO 01/18/17 09:00 02/16/17 08:59 01/18/17 07:34 40 MG Furosemide (Lasix Tab) 80 mg QAM PO 01/18/17 09:00 02/17/17 08:59 01/18/17 07:33 80 MG Hydralazine HCl (HydrALAZINE INJ) 10 mg Q4H PRN IV. 01/18/17 05:45 02/17/17 05:44 Amlodipine Besylate (Norvasc Tab) 5 mg QAM PO 01/18/17 09:00 02/17/17 08:59 01/18/17 10:09 5 MG Objective Vital Signs Date Time Temp Pulse Resp B/P (MAP) Pulse Ox O2 Delivery O2 Flow Rate FiO2 01/18/17 14:58 Nasal Cannula 2.0 01/18/17 11:15 Nasal Cannula 2.0 01/18/17 11:01 36.6 83 18 159/70 (99) 97 Nasal Cannula 2.0 01/18/17 08:00 Nasal Cannula 2.0 01/18/17 07:54 36.8 84 20 189/64 (105) 94 Nasal Cannula 2.0 01/18/17 07:14 77 16 98 Nasal Cannula 2.0 01/18/17 05:15 182/63 (102) 01/18/17 04:00 Nasal Cannula 2.0 01/18/17 03:09 37.1 71 22 188/48 (94) 93 Nasal Cannula 2.0 01/18/17 02:11 169/67 (101) 01/18/17 01:45 50 16 99 Nasal Cannula 2.0 01/18/17 00:25 Nasal Cannula 2.0 01/18/17 00:12 36.9 62 21 188/67 (107) 94 Nasal Cannula 2.0 01/17/17 20:00 Nasal Cannula 2.0 01/17/17 19:23 36.9 67 21 194/49 (97) 97 Nasal Cannula 2.0 01/17/17 19:13 50 16 99 Nasal Cannula 2.0 01/17/17 17:42 65 01/17/17 16:00 Nasal Cannula 2.0 01/17/17 16:00 36.7 66 16 180/73 (108) 97 Nasal Cannula 2.0 Physical Exam General Appearance: WD/WN, no apparent distress Neck: supple, no adenopathy, no JVD, trachea midline Respiratory/Chest: chest non-tender, no respiratory distress, no accessory muscle use, + crackles (left upper lobe only) Cardiovascular: no edema, no gallop, no JVD, no murmur, + irregularly irregular Abdomen: normal bowel sounds, non tender, soft, no organomegaly Extremities: normal range of motion, non-tender, normal inspection, no pedal edema, no calf tenderness 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, alert, normal mood/affect, oriented x 3, + abnormal gait (requires walker), + motor weakness (mild weakness ) Skin: normal color, warm/dry, no rash Lymphatic: no adenopathy Laboratory Results Last 24 Hours Test 01/17/17 16:20 01/17/17 20:22 01/18/17 06:00 01/18/17 06:53 Bedside Glucose 159 mg/dl 112 mg/dl 61 mg/dl White Blood Count 7.79 K/uL Red Blood Count 4.30 M/uL Hemoglobin 11.9 g/dL Hematocrit 37.7 % Mean Corpuscular Volume 87.7 fL Mean Corpuscular Hemoglobin 27.7 pg Mean Corpuscular Hemoglobin Concent 31.6 g/dl RDW Standard Deviation 47.9 fL RDW Coefficient of Variation 14.9 % Platelet Count 197 K/uL Mean Platelet Volume 8.9 fL Creatinine 0.83 mg/dl Est Creatinine Clear Calc Drug Dose 72.6 ml/min Estimated GFR () 81.1 Estimated GFR (Non- 70.0 Test 01/18/17 07:08 01/18/17 11:27 Bedside Glucose 71 mg/dl Sodium Level 142 mmol/L Potassium Level 4.0 mmol/L Chloride Level 108 mmol/L Carbon Dioxide Level 28 mmol/L Anion Gap 6.0 mmol/L Blood Urea Nitrogen 17 mg/dl Creatinine 0.85 mg/dl Est Creatinine Clear Calc Drug Dose 71.1 ml/min Estimated GFR () 78.8 Estimated GFR (Non- 68.0 BUN/Creatinine Ratio 19.6 Random Glucose 120 mg/dl Calcium Level 8.9 mg/dl Digoxin Level 1.2 ng/ml Assessment and Plan 71yo female with h/o CAD s/p CABG and stents, presented with BERNICE pneumonia, very dense, appeared to be consistent with possible lung mass - BERNICE pneumonia vs possible lung mass day 7 of antibiotics, Levaquin solely at this point, no change on CXR stop antibiotics today and monitor symptoms d/w Dr. Zendejas, plan for bronchoscopy, needs to be done next week, 5 days after last Plavix dose continue nebulizers - Paroxysmal atrial fibrillation: now back in atrial fibrillation, today with sinus pauses, no symptoms continue Digoxin, Coreg not currently on full anticoagulation, holding due to bronchoscopy and hemoptysis awaiting recent echo from [facility] appreciate cardiology consult, will refer to EP to evaluate for pacer - CAD with h/o CABG, stents: no chest pain hold aspirin, Plavix, continue Coreg, statin - DM type II: continue Lantus and Novolog - HTN: poorly controlled, systolic readings in 190's and 200's on Coreg, Lisinopril, Imdur increased the Lisinopril to 40mg HR in 60's so no room for Coreg titration consider adding Hydralazine 25mg TID if pressures still high tomorrow - Acute on chronic heart failure: unsure if diastolic or systolic, awaiting echo report from [facility] continue Lasix 80mg PO daily DVT proph: Lovenox PT, OT consults, recommend brief rehab stay, patient agreeable await EP input about possible pacer needs bronchoscopy next week Continued [facility] stay due to: multiple IV medications needed Discharge planning: uncertain
--- NOTE | 2017-01-18 16:33 | Cardiology Consultation ---
Cardiology Consultation Date of Service Jan 18, 2017. Cardiology Consultation Dictation system down. Pt seen, examined, and chart reviewed. Will have EP service evaluate for a permanent pacer (>3.5 second pauses x 2). Will follow.
[2017-01-18] MEDS: ATORVASTATIN 40 MG TAB PO SCH (20:04)
[2017-01-19] VITALS (9 sets, daily range): BP systolic 150–175; BP diastolic 63–71; PULSE 59–78; TEMP 36.9–37.1; O2SAT 94–98
[2017-01-19] MEDS: LEVALBUTEROL 1.25MG/0.5ML NEB INH SCH ×3 (02:24→14:10)
[2017-01-19] MEDS: IPRATROPIUM BROMIDE NEB SOLN 0.02% 2.5 ML VIAL INH SCH ×3 (02:24→14:10)
[2017-01-19] MEDS: HydrALAZINE HCL 20 MG/ML VIAL IV. PRN (04:16)
[2017-01-19] MEDS: NYSTATIN POWDER 15GM BTL EXT SCH (07:33)
[2017-01-19] MEDS: SERTRALINE HCL 50 MG TAB PO SCH (07:33)
[2017-01-19] MEDS: LACTOBACILLUS ACIDOPHILUS (FLORANEX) TAB PO SCH ×2 (07:33→12:03)
[2017-01-19] MEDS: FAMOTIDINE 20 MG TAB PO SCH (07:33)
[2017-01-19] MEDS: CARVEDILOL 6.25 MG TAB PO SCH (07:34)
[2017-01-19] MEDS: ISOSORBIDE MONONITRATE 60 MG TABCR PO SCH (07:34)
[2017-01-19] MEDS: FUROSEMIDE 80 MG TAB PO SCH (07:35)
[2017-01-19] MEDS: AMLODIPINE BESYLATE 5 MG TAB PO SCH (07:35)
[2017-01-19] MEDS: GUAIFENESIN 600 MG TABCR PO SCH (07:35)
[2017-01-19] MEDS: LISINOPRIL 40 MG TAB PO SCH (07:36)
[2017-01-19] MEDS: LORAZEPAM 1 MG TAB PO SCH (07:38)
[2017-01-19] MEDS: INSULIN ASPART 100 UNITS/ML 3 ML PEN SC SCH ×3 (07:45→16:15)
[2017-01-19] MEDS: INSULIN GLARGINE SOLOSTAR 100 UNITS/ML 3 ML PEN SC SCH (07:46)
[2017-01-19] MEDS: ENOXAPARIN 40 MG/0.4 ML SYR SC SCH (07:47)
--- NOTE | 2017-01-19 12:54 | Cardiology Consultation ---
Cardiology Consultation Date of Service Jan 19, 2017. Cardiology Consultation Pertinent history Mrs. Landin is a 71-year-old white female admitted on January 12 with a symptomatic left upper lobe infiltrate/possible mass. The patient developed atrial fibrillation on several occasions, and did demonstrate to significant pauses. Therefore, this consultation as ordered to system her cardiac management. Of note, the patient typically follows with Dr. Magaña in [place]. The patient was well until 3-4 days prior to presentation when she developed fever, shortness of breath, cough, and nausea. She presented to our emergency room can't a chest x-ray revealed a left upper lobe infiltrate/possible mass. The patient did developed an episode of atrial fibrillation with a rapid ventricular response on January 14. She then converted back to sinus rhythm. 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 She demonstrated a pause at 3 a.m. of approximately 3.5 seconds, and another pause at approximately 5 a.m. of 3.8 seconds. At no time did she experience symptoms with her atrial fibrillation presents she was sound asleep during the pauses identified above. The patient also carries a history of coronary artery disease. She underwent a 3 vessel bypass in [place] back in the year 1999. Details of the surgical intervention are pending, but not currently available for review. The patient did have an echocardiogram performed on December 31 which noted normal left ventricular systolic function with an ejection fraction of 60%. There is evidence of mild left ventricular hypertrophy and diastolic dysfunction. There was mild to moderate mitral regurgitation, and mild aortic insufficiency. The patient does not typically experience exertional angina pectoris and never experienced limiting dyspnea and told that described above. She further denies syncope, presyncope, PND, orthopnea, lower extremity edema, and claudication. Currently, the patient is resting comfortably in the bedside chair without complaints. Past medical history 1. Coronary artery disease 2. CABG times 3. Hypertension 4. Mild LVH 5. Diastolic dysfunction 6. Hypercholesterolemia 7. Paroxysmal atrial fibrillation 8. Chronic RBBB 9. [id number] mitral regurgitation 10. Mild aortic insufficiency 11. GERD 12. Diabetes mellitus 13. Cholecystectomy 14. Bilateral interocular lens implants 15. Depression Medications 1. Carvedilol 6.25 mg b.i.d. 2. Zestril 40 mg daily 3. Lasix 80 mg daily 4. Norvasc 5 mg daily 5. Imdur 60 mg daily 6. Plavix 75 mg daily 7. Aspirin 325 mg daily 8. Lovenox 40 mg daily 9. Levofloxacin 750 mg daily 10. Mucinex 600 mg b.i.d. 11. Atrovent/Xopenex nebs q.6 hours 12. Insulin 30 mg b.i.d. 13. Pepcid 20 mg b.i.d. Social history , lives with No tobacco or alcohol Family history No early coronary artery disease Review of systems A 10 point review of systems was negative except for that described above Physical examination Blood pressure is 135/75 with a regular pulse of 65. Respiratory rate is 18 the patient is afebrile 37.6 degree Celsius. Saturations 95 percent on 2 liters nasal cannula. HEENT exam is negative. Neck is supple with full carotid upstrokes. There are no carotid bruits. Jugular venous pressure is flat at 90 degrees. There is no thyromegaly. Cardiovascular exam reveals a regular rhythm with a normal S1 and S2. No S3, S4 , or obvious murmurs are noted. Lungs notes rhonchi in the left upper field posteriorly. No rales or wheezes. Abdomen is obese without bruits. Extremities reveal intact radial artery pulses bilaterally. Trace pretibial edema is noted. Data CBC notes a hemoglobin of 11.9, hematocrit 37.7, white count 7.8, platelet count [id number]. Electrolytes notice O2 of 142, potassium 4.0, chloride 108, bicarb 28, BUN 17, creatinine 0.85, glucose 120. Three troponin I levels have been negative. TSH level normal at 4.23. Magnesium normal at 2.3. Digoxin level therapeutic at 1.2. Initial EKG notes normal sinus rhythm with a left axis deviation a complete right bundle-branch block. And a EKG from January 14 notes atrial fibrillation with a rapid ventricular response. There is a left axis deviation and complete right bundle-branch block. principal technical architect from January 14 his described above. Impression The patient has demonstrated to significant pauses while in atrial fibrillation. She is on low-dose beta-blockade, however, this will be necessary for her coronary artery disease and control of her ventricular response when in atrial fibrillation. Will discuss the case further with Dr. Biswas has we decide whether a permanent pacemaker is indicated. Timing of the procedure may depend on her upcoming bronchoscopy. Plan 1. Continue current medications. 2. Continue to monitor on telemetry. 3. Consult Dr. Biswas for consideration of a permanent pacemaker.
[2017-01-19] MEDS ORDERED: LEVOFLOXACIN 750 MG TAB PO ONE (14:00)
--- NOTE | 2017-01-19 14:10 | Progress Note ---
Subjective Date of Service: Jan 19, 2017. Subjective Pt evaluation today including: conversation w/ patient, physical exam, lab review, conversation w/ political consultant, review of inpatient medication list Pain: no pain PO Intake: adequate Voiding: no voiding problems patient tearful today when discussing possible lung cancer and plans for bronchoscopy her family does not want her to get biopsy because they believe that will spread the cancer (if it is cancer) I informed her that biopsy does not spread malignancy and I will discuss with her family appreciate consult from Dr. Biswas, no need for pacer at this time, pauses asymptomatic, follow up with her pharm spec in [place] still coughing up mucous and short of breath discussed rehab with her at [facility], she is agreeable, told CM to look for insurance auth Problem List Medical Problems: (1) Hypoxia Status: Acute (2) Lung mass Status: Acute Review of Systems Constitutional: + weakness, + fatigue Respiratory: + cough, + sputum, + shortness of breath, + dyspnea on exertion Psychiatric: + anxiety (tearful about left lung mass) All Other Systems: Reviewed and Negative Medications Current Inpatient Medications Medications (Trade) Dose Ordered Sig/Alfredito Route Start Time Stop Time Status Last Admin Dose Admin Insulin Aspart (novoLOG ASPART) SLIDING SCALE G... ACHS SC 01/13/17 07:00 02/12/17 06:59 01/19/17 12:04 4 UNITS Atorvastatin Calcium (Lipitor Tab) 80 mg HS PO 01/13/17 21:00 02/12/17 20:59 01/18/17 20:04 80 MG Carvedilol (Coreg Tab) 6.25 mg BID PO 01/13/17 09:00 02/12/17 08:59 01/19/17 07:34 6.25 MG Digoxin (Lanoxin Tab) 0.375 mg DAILY@1600 PO 01/13/17 16:00 02/12/17 15:59 Future Hold 01/17/17 17:42 0.375 MG Famotidine (Pepcid Tab) 20 mg BID PO 01/13/17 09:00 02/12/17 08:59 01/19/17 07:33 20 MG Isosorbide Mononitrate (Imdur Ext Rel Tab) 60 mg QAM PO 01/13/17 09:00 02/12/17 08:59 01/19/17 07:34 60 MG Lorazepam (Ativan Tab) 1 mg BID PO 01/12/17 22:00 02/11/17 21:59 01/19/17 07:38 1 MG Sertraline HCl (Zoloft Tab) 50 mg BID PO 01/13/17 09:00 02/12/17 08:59 01/19/17 07:33 50 MG Enoxaparin Sodium (Lovenox Inj) 40 mg DAILY SC 01/13/17 09:00 02/12/17 08:59 01/19/17 07:47 40 MG Acetaminophen (Tylenol Tab) 650 mg Q4H PRN PO 01/12/17 20:30 02/11/17 20:29 01/16/17 22:27 650 MG Al Hydrox/Mg Hydrox/Simethicone (Maalox Max Susp) 15 ml Q4H PRN PO 01/12/17 20:30 02/11/17 20:29 Magnesium Hydroxide (Milk Of Magnesia Susp) 30 ml Q12H PRN PO 01/12/17 20:30 02/11/17 20:29 Ondansetron HCl (Zofran Inj) 4 mg Q6H PRN IV 01/12/17 20:30 02/11/17 20:29 Nystatin (Mycostatin Powder) 1 appln BID EXT 01/13/17 09:00 02/12/17 08:59 01/19/17 07:33 1 APPLN Ipratropium [place] (Atrovent 0.02% 0.5MG/2.5ML Neb) 0.5 mg Q6R INH 01/13/17 03:00 02/12/17 02:59 01/19/17 07:09 0.5 MG Levalbuterol (Xopenex 1.25MG/ 0.5ML Neb) 1.25 mg Q6R INH 01/13/17 03:00 02/12/17 02:59 01/19/17 07:09 1.25 MG Guaifenesin (Mucinex Contr Rel Tab) 600 mg Q12 PO 01/13/17 21:00 02/12/17 20:59 01/19/17 07:35 600 MG Insulin Glargine (Lantus Solostar Pen) 30 unit BID SC 01/14/17 21:00 02/12/17 09:59 01/19/17 07:46 30 UNIT Lactobacillus Acidophilus (Floranex Tab) 1 tab TIDM PO 01/15/17 16:45 02/14/17 16:44 01/19/17 12:03 1 TAB Lisinopril (Zestril Tab) 40 mg QAM PO 01/18/17 09:00 02/16/17 08:59 01/19/17 07:36 40 MG Furosemide (Lasix Tab) 80 mg QAM PO 01/18/17 09:00 02/17/17 08:59 01/19/17 07:35 80 MG Hydralazine HCl (HydrALAZINE INJ) 10 mg Q4H PRN IV. 01/18/17 05:45 02/17/17 05:44 01/19/17 04:16 10 MG Amlodipine Besylate (Norvasc Tab) 5 mg QAM PO 01/18/17 09:00 02/17/17 08:59 01/19/17 07:35 5 MG Objective Vital Signs Date Time Temp Pulse Resp B/P (MAP) Pulse Ox O2 Delivery O2 Flow Rate FiO2 01/19/17 12:13 36.9 59 22 152/64 (93) 97 Nasal Cannula 2.0 01/19/17 12:00 Room Air 01/19/17 08:00 Room Air 01/19/17 07:46 36.9 78 20 175/71 (105) 96 Nasal Cannula 2.0 01/19/17 07:09 75 16 98 Nasal Cannula 2.0 01/19/17 04:00 Nasal Cannula 2.0 01/19/17 03:54 37.1 64 18 171/68 (102) 94 Nasal Cannula 01/19/17 00:01 Nasal Cannula 2.0 01/18/17 22:47 36.7 72 18 163/69 (100) 96 Nasal Cannula 2.0 Humidified Oxygen 01/18/17 21:32 178/68 (104) 01/18/17 20:13 Nasal Cannula 2.0 Humidified Oxygen 01/18/17 20:02 36.7 125 22 184/85 (118) 98 Nasal Cannula 2.0 01/18/17 19:38 75 16 98 Nasal Cannula 2.0 01/18/17 16:10 37.0 71 20 174/72 (106) 98 Nasal Cannula 2.0 01/18/17 14:58 Nasal Cannula 2.0 Physical Exam General Appearance: no apparent distress, + obese Neck: supple, no adenopathy, no JVD, trachea midline Respiratory/Chest: chest non-tender, no respiratory distress, no accessory muscle use, + crackles (left upper lobe) Cardiovascular: no edema, no gallop, no JVD, no murmur, + irregularly irregular Abdomen: normal bowel sounds, non tender, soft, no organomegaly Extremities: normal range of motion, non-tender, normal inspection, no pedal edema, no calf tenderness, pelvis stable Neurologic/Psychiatric: outdoor emergency care technician II-XII nml as tested, no motor/sensory deficits, alert, normal mood/affect, oriented x 3 Skin: normal color, warm/dry, no rash Lymphatic: no adenopathy Laboratory Results Last 24 Hours Test 01/18/17 16:23 01/18/17 20:30 01/19/17 06:59 01/19/17 11:00 Bedside Glucose 142 mg/dl 168 mg/dl 94 mg/dl 141 mg/dl Assessment and Plan 71yo female with h/o CAD s/p CABG and stents, presented with BERNICE pneumonia, very dense, appeared to be consistent with possible lung mass - BERNICE pneumonia vs possible lung mass completed 7 days of antibiotics, no change on CXR in density, still with productive cough and shortness of breath will resume Levaquin today since still symptomatic d/w Dr. Zendejas, plan for bronchoscopy, needs to be done next week, 5 days after last Plavix dose long discussion with patient about biopsy, she is nervous, her family does not want her to have it done discussed that a biopsy would give the type of cancer and then we would work on staging, don't even know if this is cancer at this point she is leaning toward having it done says "I have more life to live" - Paroxysmal atrial fibrillation: sinus pauses yesterday, no symptoms appreciate recommendations from Dr. Biswas, no immediate need for pacer, defer to follow up with Dr. Magaña continue Digoxin, Coreg not currently on full anticoagulation, holding due to bronchoscopy and hemoptysis - CAD with h/o CABG, stents: no chest pain hold aspirin, Plavix, continue Coreg, statin - DM type II: continue Lantus and Novolog - HTN: poorly controlled, systolic readings in 190's and 200's on Coreg, Lisinopril, Imdur increased the Lisinopril to 40mg HR in 60's so no room for Coreg titration pressures better, 150-160's on higher dose of Lisinopril, monitor - Acute on chronic heart failure: unsure if diastolic or systolic, awaiting echo report from [place] continue Lasix 80mg PO daily DVT proph: Lovenox PT, OT consults, recommend brief rehab stay, patient agreeable, asked CM to get insurance auth for Muna Fleming will call family to update and discuss the benefits of the biopsy Continued [facility] stay due to: multiple IV medications needed Discharge planning: uncertain
[2017-01-19] MEDS ORDERED: LCTX PO (14:14)
[2017-01-19] MEDS ORDERED: IPRASOL4 INH (14:14)
[2017-01-19] MEDS ORDERED: LSN40 PO (14:14)
[2017-01-19] MEDS ORDERED: NRV5 PO (14:14)
[2017-01-19] MEDS ORDERED: LVQ750 PO (14:14)
--- NOTE | 2017-01-19 14:28 | Discharge Instructions ---
Discharge Instructions Date of Service Jan 19, 2017. Admission Reason for Admission: Pneumonia Discharge Discharge Diagnosis / Problem: Left upper lobe pneumonia vs mass, paroxysmal afib, chronic heart failure Discharge Goals Goal(s): Improve function, Increase independence, Diagnostic testing (needs bronchoscopy in one week) Activity Recommendations Activity Level: Ambulates in room Therapies: Physical Therapy, Occupational Therapy Exercise/Sports Limitations: as tolerated Shower/Bathe: no limitations . Additional Information Patient informed of condition: Yes Advance Directives: No DNR: No Level of Care: Skilled (rehab) Communicable Disease: No Prognosis: Stable Oxygen at (LPM): 2L [place] Catheter: No Instructions / Follow-Up Instructions / Follow-Up Medications: - LEVAQUIN: complete 7 more days for treatment of possible pneumonia - LISINOPRIL: dose increased to 40mg for better blood pressure control - NORVASC: new medication, 5mg, added for BP control - DUONEB: as needed for shortness of breath - FLORANEX: probiotic while on antibiotics PLAVIX and ASPIRIN: continue to hold due to plans for bronchoscopy next week with Dr. Zendejas Left upper lobe pneumonia vs mass - received a full week of antibiotics, minimal change on chest x-ray and still with crackles left upper lobe, productive cough, dyspnea will continue antibiotics since she still has signs of purulence evaluated by Dr. Zendejas with pulmonology, he recommends bronchoscopy next week, need to allow Plavix to wear off patient can report for bronchoscopy next week, still determining date and time, see below Paroxysmal atrial fibrillation with pauses: patient had conversion pauses of up to 3 seconds, no symptoms when they occurred evaluated by cardiology, since she was asymptomatic, no pacer needed at this time her work up of left upper lobe mass more important needs to follow up with Dr. Magaña soon with [facility] FOLLOW UP - bronchoscopy early next week with Dr. Zendejas, call office tomorrow to set up, - Dr. Varela, shortly after discharged from [facility] - Dr. Magaña 2 weeks after discharged from [facility] Diet Patient's current hospital diet: AHA Diet (Heart Healthy), Diabetes Type 1 Diet Discharge Diet Recommended Diet: AHA Diet (Heart Healthy), Diabetes Type 2 Diet Pending Studies Studies pending at discharge: no Physician Orders On Transfer POLST Discussion: Not Applicable Laboratory Results Hemoglobin A1c Test 01/13/17 05:15 Range/Units Estimated Average Glucose 180 mg/dl Hemoglobin A1c 7.9 H 4.5-5.6 % Medical Emergencies . Who to Call and When: Medical Emergencies: If at any time you feel your situation is an emergency, please call 911 immediately. . Non-Emergent Contact Non-Emergency issues call your: Primary Care Provider Call Non-Emergent contact if: you have any medication questions . . "Provider Documentation" section prepared by Jori Harris. . Lockstitch Topstitcher Recommendations Lockstitch Topstitcher Recommendations: Pulmonology - bronchoscopy for potential biopsies next week Cardiology - close follow up with primary reliability specialist Dr. Magaña Core Measure Problem Core Measures: None [place] Drug Monitoring Program Search Results: no issues identified
--- NOTE | 2017-01-19 18:03 | Cardiology Consultation ---
Cardiology Consultation Date of Consultation: Jan 19, 2017. Reason for Consultation: Pauses on telemetry Pt evaluation today including: conversation w/ patient, physical exam, conversation w/ attending History of Present Illness The patient is a 71-year-old woman who is admitted with symptoms of breathing difficulty and likely pneumonia. She reports having symptoms of an infection leading up to her admission. Currently she claims to be feeling better although she has difficulty characterizing exactly what is better. Overall she seems to have more comfort with breathing and overall more energy. She reports getting up in chair for a good portion of the day yesterday. She did not recall any episodes of dizziness or lightheadedness but did report some sense of palpitations and tachycardia. It seems that she does have episodes of tachycardia as an outpatient. These happen infrequently and are well tolerated. She is active around her home but does use assistive devices such as a walker in her residence. She cannot recall episodes of dizziness or lightheadedness. She cannot recall any syncopal episodes. She has had several falls over the years but none very recently. These falls appear to involve some element of gait instability but not overt dizziness. Past Medical/Surgical History (1) Diabetes mellitus (2) Hypertension Coronary artery disease status post coronary artery bypass grafting Paroxysmal atrial fibrillation Family History Diabetes mellitus Heart disease Hypertension Lung disease Social History Smoking Status: Never Smoker History of Alcohol Use: No Review of Systems Respiratory: + cough, + sputum, + shortness of breath, + dyspnea on exertion Cardiac: + orthopnea, + PND, + edema, No chest pain Complete. Pertinent positives noted above the remainder being negative All Other Systems: Reviewed and Negative Allergies Coded Allergies: Adhesives (Verified Allergy, Severe, HIVES,RASH, 01/12/17) Amoxicillin (Verified Allergy, Severe, HIVES, 01/12/17) Cephalexin (Verified Allergy, Severe, HIVES, 01/12/17) Clarithromycin (Verified Allergy, Severe, HIVES, 01/12/17) Clavulanic Acid (Verified Allergy, Severe, HIVES, 01/12/17) Metaproterenol (Verified Allergy, Severe, HIVES, 01/12/17) Physical Exam Vital Signs Past 12 Hours Date Time Temp Pulse Resp B/P (MAP) Pulse Ox O2 Delivery O2 Flow Rate FiO2 01/19/17 16:39 36.9 65 16 98 Nasal Cannula 01/19/17 15:38 150/63 (92) 01/19/17 15:18 36.9 65 16 175/64 (101) 98 Nasal Cannula 2.0 01/19/17 14:11 64 16 98 Nasal Cannula 2.0 01/19/17 13:49 62 98 01/19/17 12:13 36.9 59 22 152/64 (93) 97 Nasal Cannula 2.0 01/19/17 12:00 Room Air 01/19/17 08:00 Room Air 01/19/17 07:46 36.9 78 20 175/71 (105) 96 Nasal Cannula 2.0 01/19/17 07:09 75 16 98 Nasal Cannula 2.0 Head: normocephalic ENMT: normal ENT inspection Neck: supple Lungs: Respiratory effort: no dyspnea Auscultation: decreased breath sounds Cardiovascular: Apical Impulse: not displaced Heart Auscultation: normal S1, murmur Musculoskeletal: normal Extremities: no cyanosis Data Laboratory Results: Last 24 Hours Test 01/18/17 20:30 01/19/17 06:59 01/19/17 11:00 01/19/17 16:16 Bedside Glucose 168 mg/dl 94 mg/dl 141 mg/dl 110 mg/dl Imaging: I reviewed her recent echocardiogram report dated 12/29/2016. This revealed preserved LV systolic function with mild left atrial enlargement. She had some mild valvular disease involving insufficiency of the aortic and mitral valves. EKG: Normal sinus rhythm with right bundle branch block Telemetry reviewed: Patient did have atrial fibrillation yesterday with conversion pauses lasting approximately 3.5 seconds. There was a brief junctional rhythm prior to resumption of a sinus rhythm Assessment & Plan 1. Atrial fibrillation: Patient reported to have paroxysmal atrial fibrillation. She does recall episodes of tachycardia. This is reported to be chronic in nature although we do not have outpatient records currently to document a history of atrial fibrillation. She is not currently on anticoagulation which makes the chronic diagnosis of atrial fibrillation suspect. Her overall rate control seemed good on her current dose of carvedilol. She was relatively inactive during this episode, and she may actually have higher rates with activity. She did have conversion pauses. She was not symptomatic but once again was likely sitting or lying down when they happen. She does not currently report symptoms of dizziness or lightheadedness consistent with symptomatic conversion pauses. I did discuss the option of a pacemaker with the patient today. However, due to the unknown chronicity of her atrial fibrillation and the absence of associated symptoms the indication is less clear. She also suffering from recurrent infection and expressed a desire to discuss this with her primary director of media. Based on the non emergent nature of this condition I felt it was reasonable to allow her discharge with close outpatient follow-up regarding any additional need for pacing or intervention. One could consider reducing or eliminating her beta- mitra. However, she does have a history of ischemic heart disease and likely needs some form of medication for rate control. Once again, given the asymptomatic nature of these episodes in the unknown chronicity in the setting of a recent acute infection I did not recommend urgent pacemaker implantation. From the standpoint of stroke prophylaxis the patient's chads Vasc score is high enough to warrant systemic anticoagulation. Once again the patient wishes to consult her primary director of media prior to initiation. 2. Valvular heart disease: Patient is noted to have an element of both aortic and mitral insufficiency. These are characterized as mild to moderate in nature based on echocardiogram performed earlier this month. She does also have an element of mild left atrial enlargement which may predispose her to additional episodes of atrial fibrillation. 3. Coronary artery disease: No current symptoms suggestive of coronary insufficiency or angina
--- NOTE | 2017-01-20 08:33 | Discharge Summary ---
Discharge Summary Date of Service Jan 20, 2017. Discharge Summary Admission Date: Jan 12, 2017 at 20:40 Discharge Date: Jan 19, 2017 Discharge Disposition: Rehab Principal Diagnosis: Left upper lobe pneumonia vs mass Problems/Secondary Diagnoses: Paroxysmal atrial fibrillation Acute on chronic diastolic heart failure Acute hypoxic respiratory failure CAD Procedures: none Consultations: Pulmonology Cardiology Medication Reconciliation New Medications: Ipratropium-Albuterol (Duoneb) 3 Ml Nebu 1 TREATMENT INH Q4H PRN for Shortness of Breath, #1 BOX Amlodipine Besylate (Amlodipine Besylate) 5 Mg Tab 5 MG PO QAM, #30 TAB 2 Refills Lactobacillus Acidophilus (Floranex) 1 Tab Tab 1 TAB PO TIDM, #30 TAB 0 Refills Levofloxacin (Levofloxacin) 750 Mg Tab 750 MG PO DAILY@11, #7 TAB 0 Refills Lisinopril (Lisinopril) 40 Mg Tab 40 MG PO QAM, #30 TAB 1 Refill Continued Medications: Atorvastatin (Lipitor) 80 Mg Tab 80 MG PO HS Carvedilol (Coreg) 6.25 Mg Tab 6.25 MG PO BID Digoxin (Digox) 250 Mcg Tab 375 MCG PO QAM Famotidine (Pepcid) 20 Mg Tab 20 MG PO BID Fish Oil ([place]-3) 1 Ea Cap 2 CAP PO BID Furosemide (Lasix) 80 Mg Tab 80 MG PO QAM Insulin Human NPH (Novolin N) 100 Units/Ml Susp 50 UNITS SQ QAM Insulin Human NPH (Novolin N) 100 Units/Ml Susp 50 UNITS SQ HS Insulin Human Regular (Novolin R) 100 Units/1 Ml Inj 30 UNITS SQ QAM Insulin Human Regular (Novolin R) 100 Units/1 Ml Inj 30 UNITS SQ DAILYBD Isosorbide Mononitrate Ext Rel (Imdur Ext Rel) 60 Mg Ertab 60 MG PO QAM Lorazepam (Ativan) 1 Mg Tab 1 MG PO BID Potassium Chloride (Micro-K Ext Rel) 10 Meq Capcr 10 MEQ PO QAM Sertraline (Zoloft) 50 Mg Tab 50 MG PO BID Discontinued Medications: Aspirin (Aspirin Ec) 325 Mg Tab 325 MG PO QAM Clopidogrel (Plavix) 75 Mg Tab 75 MG PO QAM Lisinopril (Zestril) 20 Mg Tab 20 MG PO QAM Discharge Exam patient tearful yesterday when discussing possible lung cancer and plans for bronchoscopy her family does not want her to get biopsy because they believe that will spread the cancer (if it is cancer) I informed her that biopsy does not spread malignancy and I will discuss with her family I tried calling the listed number for her Wang several times, no answer, left a message and no phone call appreciate consult from Dr. Biswas, no need for pacer at this time, pauses asymptomatic, follow up with her associate partner in [place] still coughing up mucous and short of breath on exertion discussed rehab with her at [facility], she is agreeable, insurance authorized rehab in the afternoon Review of Systems: Constitutional: + weakness, + fatigue, No fever, No chills, No sweats, No weight loss, No problem reported Eyes: No worsening of vision, No eye pain, No redness, No discharge, No diplopia, No problem reported ENT: No hearing loss, No unusual epistaxis, No nasal symptoms, No sore throat, No tinnitus, No dental problems, No trouble swallowing, No problem reported Respiratory: + cough, + sputum, + dyspnea on exertion, No wheezing, No shortness of breath, No dyspnea at rest, No hemoptysis Cardiovascular: No chest pain, No orthopnea, No PND, No edema, No claudication, No palpitations, No problem reported Abdomen: No pain, No nausea, No vomiting, No diarrhea, No constipation, No GI bleeding, No problem reported Musculoskeletal: No joint pain, No muscle pain, No swelling, No calf pain, No problem reported Genitourinary - Female: No dysuria, No urinary frequency, No urinary urgency , No urinary incontinence, No urinary retention, No hematuria Neurologic: + weakness, No memory loss, No paralysis, No numbness/tingling, No vertigo, No balance problems, No problem reported Psychiatric: No depression symptoms, No anhedonism, No anxiety, No insomnia , No substance abuse, No problem reported Endocrine: No fatigue, No excessive thirst, No excessive urination, No problem reported Hematologic / Lymphatic: No abnormal bleeding/bruising, No clotting problems , No swollen lymph nodes, No night sweats, No problem reported Integumentary: No rash, No itch, No new/changing skin lesions, No color change, No bleeding, No problem reported Physical Exam: General Appearance: WD/WN, no apparent distress Eyes: normal inspection, EOMI, sclerae normal ENT: normal ENT inspection, hearing grossly normal, pharynx normal Neck: supple, no adenopathy, no JVD, trachea midline Respiratory/Chest: chest non-tender, no respiratory distress, no accessory muscle use, + crackles (left upper lobe only) Cardiovascular: regular rate, rhythm, no edema, no gallop, no JVD, no murmur , normal peripheral pulses Abdomen / GI: normal bowel sounds, non tender, soft, no organomegaly Extremities: normal inspection, no calf tenderness, normal capillary refill , no pedal edema, normal range of motion, pelvis stable Neurologic/Psychiatric: fitness and wellness director II-XII nml as tested, no motor/sensory deficits , alert, normal reflexes, oriented x 3, + pertinent finding (tearful at times, discussing potential left lung mass) Skin: normal color, warm/dry, no rash Lymphatic: no adenopathy Hospital Course 71yo female with h/o CAD s/p CABG and stents, presented with BERNICE pneumonia, very dense, appeared to be consistent with possible lung mass - BERNICE pneumonia vs possible lung mass completed 7 days of antibiotics, no change on CXR in density, still with productive cough and shortness of breath will resume Levaquin today since still symptomatic and prescribed an additional 7 day course d/w Dr. Zendejas, plan for bronchoscopy, needs to be done next week, 5 days after last Plavix dose long discussion with patient about biopsy, she is nervous, her family does not want her to have it done discussed that a biopsy would give the type of cancer and then we would work on staging, don't even know if this is cancer at this point she is leaning toward having it done says "I have more life to live" will go to [facility], spoke with Dr. Zendejas, please call his office to schedule for next week at the patient's convenience - Paroxysmal atrial fibrillation: sinus pauses yesterday, no symptoms per cardiology, likely an incidental finding while here on telemetry, she likely was having asymptomatic pauses as outpatient appreciate recommendations from Dr. Biswas, no immediate need for pacer, defer to follow up with Dr. Magaña continue Digoxin, Coreg not currently on full anticoagulation, holding due to bronchoscopy and intermittent hemoptysis - CAD with h/o CABG, stents: no chest pain hold aspirin, Plavix for planned bronchoscopy, continue Coreg, statin - DM type II: continue Lantus and Novolog while inpatient can resume NPH and Novolin - HTN: poorly controlled, systolic readings in 190's and 200's a few days ago on Coreg, Lisinopril, Imdur, Norvasc increased the Lisinopril to 40mg HR in 60's so no room for Coreg titration pressures better, 150-160's on higher dose of Lisinopril, monitor outpatient - Acute on chronic heart failure: unsure if diastolic or systolic, awaiting echo report from [place] continue Lasix 80mg PO daily DVT proph: Lovenox PT, OT consults, recommend brief rehab stay, patient agreeable, asked CM to get insurance auth for [facility] tried to call family to discuss plans for discharge and bronchoscopy, no response, left message to call back Total Time Spent: Greater than 30 minutes This includes examination of the patient, discharge planning, medication reconciliation, and communication with other providers. Discharge Instructions Please refer to the electronic Patient Visit Report (Discharge Instructions) for additional information. Follow-Up Dr Zendejas next week for bronchoscopy, please call [phone] Varela in [address] Magaña in 2-3 weeks Additional Copies To Adam Varela MD; Claudio Magaña; [facility]
[2017-01-20] MEDS ORDERED: LEVOFLOXACIN 750 MG TAB PO SCH (11:00)
== END 2017-01-19 17:45 | DRG 193 ==
LOC: C.EDB 12:23 → C.2T 20:40 → ENRESERV 21:00
PROVIDERS: ADMIT Internal Medicine; ATTEND Internal Medicine
DX: J18.9 Pneumonia, unspecified organism (principal); J96.01 Acute respiratory failure with hypoxia; I50.33 Acute on chronic diastolic (congestive) heart failure; R04.2 Hemoptysis; I11.0 Hypertensive heart disease with heart failure; I48.0 Paroxysmal atrial fibrillation; B37.2 Candidiasis of skin and nail; I25.10 Atherosclerotic heart disease of native coronary artery without angina pectoris; E78.5 Hyperlipidemia, unspecified; F41.9 Anxiety disorder, unspecified; F32.9 Major depressive disorder, single episode, unspecified; K21.9 Gastro-esophageal reflux disease without esophagitis; R29.6 Repeated falls; R19.7 Diarrhea, unspecified; R91.8 Other nonspecific abnormal finding of lung field; E11.65 Type 2 diabetes mellitus with hyperglycemia; Z79.02 Long term (current) use of antithrombotics/antiplatelets; Z79.4 Long term (current) use of insulin; Z79.82 Long term (current) use of aspirin; Z79.899 Other long term (current) drug therapy

== ENCOUNTER 2017-10-29 10:35 | Inpatient (IN) | payer OTHER ==
[~2017-10-29] VITALS: Ht 160 cm; Wt 112.0 kg
[~2017-10-29 10:35] MED LIST: ATOR-26 PO; ATV/1 PO; CARV6.252 PO; DIGO0.2519 PO; FAMO20TA11 PO; FRS/80 PO; ISOS60TA25 PO; LCTX PO; LSN40 PO; LVQ750 PO; NRV5 PO; NVLNI SQ; NVLRPUC SQ; OMEG10007 PO; POTA10CA28 PO; RRNOVOLINR SQ; SERT50TA PO
[2017-10-29] MEDS ORDERED: SODIUM CHLORIDE 0.9% 1000ML 1,000 ML IV STA (10:43)
[2017-10-29 11:06] LABS: BASO % 0.2 %; BASO ABS # 0.01 K/uL (0-0.2); EOS % 3.3 %; EOS ABS # 0.22 K/uL (0-0.5); HEMOGLOBIN 12.2 g/dL (12.0-16.0); IG# 0.01 K/uL (0.00-0.02); LYMPH ABS # 1.72 K/uL (1.2-3.4); MEAN CELL VOLUME 84.7 fL (80-100); MEAN CORPUSCULAR HEMOGLOBIN 27.9 pg (25-34); MEAN PLATELET VOLUME 9.5 fL (7.4-10.4); MONO % 5.1 %; MONO ABS # 0.34 K/uL (0.11-0.59); NEUT % 65.2 %; NEUT ABS # 4.32 K/uL (1.4-6.5); PLATELET COUNT 129 K/uL (130-400); RED CELL DISTRIBUTION WIDTH CV 14.5 % (11.5-14.5); RED CELL DISTRIBUTION WIDTH SD 44.6 fL (36.4-46.3); WHITE BLOOD COUNT 6.62 K/uL (4.8-10.8)
[2017-10-29 11:14] LABS: INR 1.1 (0.9-1.1); PTT PATIENT 27.3 SECONDS (21.0-31.0)
--- NOTE | 2017-10-29 11:17 | DIAGNOSTIC IMAGING REPORT ---
CHEST ONE VIEW PORTABLE CLINICAL HISTORY: 72 years-old Female presenting with EVALUATE WEAKNESS. TECHNIQUE: Portable upright AP view of the chest was obtained. COMPARISON: 01/16/2017. FINDINGS: Median sternotomy wires and mediastinal surgical clips unchanged. Atherosclerosis of the aortic arch. Cardiac silhouette normal in size. Pulmonary vascular prominence. Resolution of the previously noted left mid to upper lung opacity. Mildly low lung volumes. No focal opacity. No large effusion or pneumothorax. Degenerative changes of the thoracic spine. Deformity of the left humeral neck consistent with fracture. Upper abdomen normal. IMPRESSION: 1. Resolution of previous left mid to upper lung opacity. No new focal opacity. 2. Mildly low lung volumes. 3. Suggestion of volume overload. 4. Left humeral neck fracture, which was present on prior CT from 01/12/2017. Electronically signed by: Deejay Hernandez M.D. 10/29/2017 11:16 AM Dictated Date/Time: 10/29/2017 11:14 AM
[2017-10-29 11:24] LABS: ALBUMIN 3.2 gm/dl (3.4-5.0); ALT/SGPT 32 U/L (12-78); AST/SGOT 18 U/L (15-37); BLOOD UREA NITROGEN 28 mg/dl (7-18); CALCIUM 8.7 mg/dl (8.5-10.1); CARBON DIOXIDE 30 mmol/L (21-32); CREATININE 0.98 mg/dl (0.60-1.20); GLUCOSE 348 mg/dl (70-99); POTASSIUM 4.2 mmol/L (3.5-5.1); SODIUM 132 mmol/L (136-145)
[2017-10-29 11:36] LABS: ALKALINE PHOSPHATASE 76 U/L (45-117); CKMB 2.7 ng/ml (0.5-3.6)
[2017-10-29] MEDS ORDERED: CARV6.252 PO (11:47)
[2017-10-29] MEDS ORDERED: FRS/40 PO (11:47)
[2017-10-29] MEDS ORDERED: NTRGSL/4 SL (11:47)
[2017-10-29] MEDS ORDERED: LISI-725 PO (11:47)
[2017-10-29] MEDS ORDERED: ASPCH81X PO (11:47)
[2017-10-29] MEDS ORDERED: APIX1TAB3 PO (11:47)
[2017-10-29] MEDS ORDERED: MoRPHine SULFATE 4 MG/ML 1 ML CARP\\VIAL IV STA (12:15)
--- NOTE | 2017-10-29 12:34 | EMERGENCY ROOM VISIT NOTE ---
History Report prepared by Uriel[employer]: Tequila Hyman Under the Supervision of: Dr. Diego Stephens M.D. 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 She has a history of triple bypass surgery. EMS gave the patient 4 baby Aspirin and 3 Nitro which did not help relieve the chest pain. She was then given 100 mcg Fentanyl and 4 mg Zofran and states her pain went from a 10/10 to a 3/10 in severity. The patient is sleepy on exam. She has been minimally nauseous but has not vomited. She is on O2 due to a pulse ox of 83% on RA. Pt denies LOC, headache, fevers, chills, diaphoresis, visual changes, neck pain, breathing difficulties, vomiting, abdominal pain, back pain, melena, hematochezia, urinary symptoms, numbness, weakness, lymphadenopathy, rash, or other complaints. Source of History: patient, EMS Onset: earlier this morning Position: chest Symptom Intensity: 3/10 to 10/10 Timing: other (persistent) Modifying Factors (Relieving): narcotics (Fentanyl), other (Nitroglycerin, Aspirin) Associated Symptoms: + nausea Review of Systems See HPI for pertinent positives and negatives. A total of ten systems were reviewed and were otherwise negative. Past Medical & Surgical Medical Problems: (1) Chest pain (2) Diabetes mellitus (3) Fever (4) Hypertension (5) Pneumonia Surgical Problems: (1) History of cholecystectomy (2) S/P triple vessel bypass Family History Diabetes mellitus Heart disease Hypertension Lung disease Social History Smoking Status: Never Smoker Alcohol Use: none Marital Status: Housing Status: lives with family Occupation Status: unemployed Current/Historical Medications Scheduled Apixaban (Eliquis), 5 MG PO BID Aspirin (Aspirin Chewable), 81 MG PO QAM Atorvastatin (Lipitor), 80 MG PO HS Carvedilol (Coreg), 6.25 MG PO QAM Famotidine (Pepcid), 20 MG PO BID Fish Oil ([place]-3), 1 CAP PO BID Furosemide (Lasix), 40 MG PO BID Insulin Human NPH (Novolin N), 25 UNITS SQ BID Isosorbide Mononitrate Ext Rel (Imdur Ext Rel), 60 MG PO QAM Lisinopril (Zestril), 20 MG PO QAM Lorazepam (Ativan), 1 MG PO BID Potassium Chloride (Micro-K Ext Rel), 10 MEQ PO BID Sertraline (Zoloft), 50 MG PO BID Scheduled PRN Nitroglycerin (Nitrostat), 1 TAB SL UD PRN for CHEST PAIN Allergies Coded Allergies: Adhesives (Verified Allergy, Severe, HIVES,RASH, 10/29/17) Amoxicillin (Verified Allergy, Severe, HIVES, 10/29/17) Cephalexin (Verified Allergy, Severe, HIVES, 10/29/17) Clarithromycin (Verified Allergy, Severe, HIVES, 10/29/17) Clavulanic Acid (Verified Allergy, Severe, HIVES, 10/29/17) Metaproterenol (Verified Allergy, Severe, HIVES, 10/29/17) Physical Exam Vital Signs Date Time Temp Pulse Resp B/P (MAP) Pulse Ox O2 Delivery O2 Flow Rate FiO2 10/29/17 15:05 116 16 92 10/29/17 15:02 136/69 10/29/17 14:57 167/78 10/29/17 14:35 105 25 93 10/29/17 14:31 152/106 10/29/17 14:05 86 14 94 10/29/17 14:01 142/96 10/29/17 13:38 95 Nasal Cannula 3.0 10/29/17 13:35 89 12 95 10/29/17 13:31 154/95 10/29/17 13:14 90 10/29/17 13:05 110 19 91 10/29/17 13:02 129/97 10/29/17 12:46 148/76 10/29/17 12:36 150/90 10/29/17 12:35 87 12 97 10/29/17 12:05 82 14 97 10/29/17 12:02 172/90 10/29/17 11:35 66 16 98 10/29/17 11:05 78 16 95 10/29/17 11:01 157/100 10/29/17 10:56 140/83 10/29/17 10:48 82 10/29/17 10:47 95 Nasal Cannula 3.0 10/29/17 10:47 95 Nasal Cannula 3.0 10/29/17 10:44 37.0 96 16 140/85 93 Nasal Cannula 3.0 10/29/17 10:43 140/85 Physical Exam GENERAL: Awake, alert, well-appearing, in no distress HENT: Normocephalic, atraumatic. Oropharynx unremarkable. EYES: Normal conjunctiva. Sclera non-icteric. NECK: Supple. No nuchal rigidity. FROM. No masses. RESPIRATORY: Clear to auscultation. No wheezes. No rales. Normal respiratory effort. CARDIAC: Borderline tachycardic rate. Normal rhythm. No murmurs. No rubs. Extremities warm and well perfused. CHEST: Mild chest wall tenderness, palpation does not reproduce pain the patient experienced earlier this morning. Pulses equal. No JVD. GI: Soft, non-distended. No tenderness to palpation. No rebound or guarding. No masses. RECTAL: Deferred. MUSCULOSKELETAL: Atraumatic. Chest examination reveals no tenderness. The back is symmetrical on inspection without obvious abnormality. There is no CVA tenderness to palpation. No joint edema. LOWER EXTREMITIES: Calves are equal size bilaterally and non-tender. 1+ LE edema. No discoloration. NEURO: Normal sensorium. No sensory or motor deficits noted. SKIN: No rash or jaundice noted. Medical Decision & Procedures ER Provider Diagnostic Interpretation: Radiology results as stated below per my review and radiologist interpretation: CHEST ONE VIEW PORTABLE CLINICAL HISTORY: 72 years-old Female presenting with EVALUATE WEAKNESS. TECHNIQUE: Portable upright AP view of the chest was obtained. COMPARISON: 01/16/2017. FINDINGS: Median sternotomy wires and mediastinal surgical clips unchanged. Atherosclerosis of the aortic arch. Cardiac silhouette normal in size. Pulmonary vascular prominence. Resolution of the previously noted left mid to upper lung opacity. Mildly low lung volumes. No focal opacity. No large effusion or pneumothorax. Degenerative changes of the thoracic spine. Deformity of the left humeral neck consistent with fracture. Upper abdomen normal. IMPRESSION: 1. Resolution of previous left mid to upper lung opacity. No new focal opacity. 2. Mildly low lung volumes. 3. Suggestion of volume overload. 4. Left humeral neck fracture, which was present on prior CT from 01/12/2017. Electronically signed by: Deejay Hernandez M.D. 10/29/2017 11:16 AM Laboratory Results 10/29/17 10:59 Red Blood Count 4.37, Mean Corpuscular Volume 84.7, Mean Corpuscular Hemoglobin 27.9, Mean Corpuscular Hemoglobin Concent 33.0, Mean Platelet Volume 9.5, Neutrophils (%) (Auto) 65.2, Lymphocytes (%) (Auto) 26.0, Monocytes (%) (Auto) 5.1, Eosinophils (%) (Auto) 3.3, Basophils (%) (Auto) 0.2, Neutrophils # (Auto) 4.32, Lymphocytes # (Auto) 1.72, Monocytes # (Auto) 0.34, Eosinophils # (Auto) 0.22, Basophils # (Auto) 0.01 10/29/17 10:59 Test 10/29/17 10:59 White Blood Count 6.62 K/uL (4.8-10.8) Red Blood Count 4.37 M/uL (4.2-5.4) Hemoglobin 12.2 g/dL (12.0-16.0) Hematocrit 37.0 % (37-47) Mean Corpuscular Volume 84.7 fL (80-100) Mean Corpuscular Hemoglobin 27.9 pg (25-34) Mean Corpuscular Hemoglobin Concent 33.0 g/dl (32-36) Platelet Count 129 K/uL (130-400) Mean Platelet Volume 9.5 fL (7.4-10.4) Neutrophils (%) (Auto) 65.2 % Lymphocytes (%) (Auto) 26.0 % Monocytes (%) (Auto) 5.1 % Eosinophils (%) (Auto) 3.3 % Basophils (%) (Auto) 0.2 % Neutrophils # (Auto) 4.32 K/uL (1.4-6.5) Lymphocytes # (Auto) 1.72 K/uL (1.2-3.4) Monocytes # (Auto) 0.34 K/uL (0.11-0.59) Eosinophils # (Auto) 0.22 K/uL (0-0.5) Basophils # (Auto) 0.01 K/uL (0-0.2) RDW Standard Deviation 44.6 fL (36.4-46.3) RDW Coefficient of Variation 14.5 % (11.5-14.5) Immature Granulocyte % (Auto) 0.2 % Immature Granulocyte # (Auto) 0.01 K/uL (0.00-0.02) Prothrombin Time 11.9 SECONDS (9.0-12.0) Prothromb Time International Ratio 1.1 (0.9-1.1) Activated Partial Thromboplast Time 27.3 SECONDS (21.0-31.0) Partial Thromboplastin Ratio 1.1 Anion Gap 2.0 mmol/L (3-11) Est Creatinine Clear Calc Drug Dose 61.2 ml/min Estimated GFR () 65.9 Estimated GFR (Non- 56.8 BUN/Creatinine Ratio 28.3 (10-20) Calcium Level 8.7 mg/dl (8.5-10.1) Magnesium Level 1.9 mg/dl (1.8-2.4) Total Bilirubin 0.6 mg/dl (0.2-1) Direct Bilirubin 0.2 mg/dl (0-0.2) Aspartate Amino Transf (AST/SGOT) 18 U/L (15-37) Alanine Aminotransferase (ALT/SGPT) 32 U/L (12-78) Alkaline Phosphatase 76 U/L (45-117) Total Creatine Kinase 122 U/L (26-192) Creatine Kinase MB 2.7 ng/ml (0.5-3.6) Creatine Kinase MB Ratio 2.2 (0-3.0) Troponin I < 0.015 ng/ml (0-0.045) Total Protein 7.0 gm/dl (6.4-8.2) Albumin 3.2 gm/dl (3.4-5.0) Beta-Hydroxybutyric Acid 0.78 mg/dL (0.2-2.81) Thyroid Stimulating Hormone (TSH) 4.530 uIu/ml (0.300-4.500) Laboratory results reviewed by me Medications Administered Medications (Trade) Dose Ordered Sig/Alfredito Route Start Time Stop Time Status Last Admin Dose Admin Sodium Chloride 1,000 ml @ 125 mls/hr Q8H STAT IV 10/29/17 10:43 10/29/17 18:42 10/29/17 11:00 125 MLS/HR Morphine Sulfate (MoRPHine SULFATE INJ) 2 mg NOW STAT IV 10/29/17 12:15 10/29/17 12:16 DC 10/29/17 12:15 2 MG Nitroglycerin (Nitroglycerin 2% Oint) 0.5 inch NOW ONCE EXT 10/29/17 12:45 10/29/17 12:46 DC 10/29/17 12:47 0.5 INCH Hydromorphone HCl (Dilaudid Inj) 0.5 mg NOW STAT IV 10/29/17 14:52 10/29/17 14:53 DC 10/29/17 14:58 0.5 MG ECG Per My Interpretation Indication: chest pain Rate (beats per minute): 81 Rhythm: atrial fibrillation Findings: PVC, RBBB, no acute ischemic change, paced rhythm Change: Patient's electrocardiogram was interpreted by me. 2nd EKG on 10/29/17: Atrial fibrillation with PVC's at 93, RBBB, left anterior fascicular block, no ischemia. ED Course 1041: The patient was evaluated in room C6. A complete history and physical exam was performed. 1043: NSS 1000 ml @ 125 mls/hr IV. 1215: Morphine Sulfate 2 mg IV. 1220: I reevaluated the patient. I discussed her results and my recommendation she remain in the hospital for further evaluation and management and she verbalized complete understanding and agreement. 1235: Dilaudid 0.5 mg IV. 1240: Nursing informed me the patient complained of more pain when her family came to visit. I will place orders. 1245: Nitrostat 0.4 mg SL, Nitroglycerin 2% 0.5 inch EXT. 1351: I discussed the patients case with TYLER Rodriguez, [facility] Hospitalist. The patient will be further evaluated. 1355: I reassessed the patient. She is resting comfortably and is awaiting hospital medicine evaluation. Medical Decision Triage Nursing notes reviewed. The patient's presentation and history were concerning for chest pain. Etiologies such as cardiac ischemia, aortic dissection, pulmonary embolism, pneumonia, pneumothorax, musculoskeletal, infections, gastrointestinal, as well as others were entertained. The patient was treated with nitro prehospital without much relief. She felt much better with IV fentanyl x 2. Her ECG showed afib without significant changes for ischemia. Blood work performed as was unremarkable. Troponin normal. She then developed recurrent pain. She was given morphine 2mg with minimal relief. Nitroglycerin, Nitropaste and dilaudid ordered. Family updated. Internal medicine consulted. Patient was reassessed and she was feeling much better. Patient was evaluated by internal medicine for further management. Medication Reconcilliation Current Medication List: was personally reviewed by me Blood Pressure Screening Patient's blood pressure: Normal blood pressure Blood pressure disposition: Did not require urgent referral Consults Time Called: 1240 Consulting Physician: TYLER Rodriguez, [facility] Hospitalist Returned Call: 1351 I discussed the patients case with TYLER Rodriguez [facility] Hospitalist. The patient will be further evaluated. Impression Primary Impression: Substernal chest pain Additional Impression: Atrial fibrillation Scribe Attestation The scribe's documentation has been prepared under my direction and personally reviewed by me in its entirety. I confirm that the note above accurately reflects all work, treatment, procedures, and medical decision making performed by me. Departure Information Dispostion Being Evaluated By Hospitalist Referrals Adam Varela MD (PCP) Patient Instructions My [facility] Problem Qualifiers
[2017-10-29] MEDS ORDERED: HYDROmorphone INJ 0.5 MG/0.5 ML SYR IV STA ×2 (12:35→14:52)
[2017-10-29] MEDS ORDERED: NITROGLYCERIN 2% OINTMENT 30GM TUBE EXT ONE (12:45)
[2017-10-29] MEDS ORDERED: NITROGLYCERIN 0.4 MG SL PER TAB CHARGE SL PRN ×2 (12:45→14:30)
[2017-10-29 13:38] VITALS: O2SAT 95; Ht 160 cm; Wt 112.0 kg
[2017-10-29] MEDS ORDERED: ALUMINUM/MAGNESIUM/SIMETH (MAALOX MAX) 30 ML UDC PO PRN (14:30)
[2017-10-29] MEDS ORDERED: MAGNESIUM HYDROXIDE SUSP 30 ML UDC PO PRN (14:30)
[2017-10-29] MEDS ORDERED: POLYETHYLENE (MIRALAX) 17 GM PACK PO PRN (14:30)
[2017-10-29] MEDS ORDERED: LORAZEPAM 1 MG TAB PO PRN (14:30)
[2017-10-29] MEDS ORDERED: PHARMACY GLYCEMIC MGMT CONSULT PRN (14:44)
--- NOTE | 2017-10-29 14:47 | History and Physical ---
History & Physical Date & Time of Service: Oct 29, 2017 at 14:32 Chief Complaint: Chest Pain Primary Care Physician: Kristian Zaragoza D.O. History of Present Illness Source: patient, family 72-year-old female with a history of congestive heart failure, oxygen dependent at 2 L at bedtime. She was discharged from [facility] on October 07 after a stay for exacerbation of congestive heart failure and pneumonia. She was sent home on Levaquin which she completed. Patient and family note ongoing sputum production and cough since being discharged. Home nursing continues to follow her. She was seen by physical therapy and Occupational Therapy and discharged. This morning she developed left-sided and central chest pain which went through into the intrascapular area. There was associated nausea although she notes she has been nauseous. She was diaphoretic. Pain did not go to the jaw or arms. She denies fever chills. She has had no changes in bowel or bladder function. Her daughter lives with her and called 911 when the pain began. She was instructed to give the patient nitro which she did and then repeated a second time as well with no significant relief to her pain. She was brought to the emergency department by EMS for evaluation. Patient was seen in the emergency department. EKG showed an atrial fibrillation with no acute ST-T wave abnormalities. Chest x-ray showed resolution of previous left mid upper lobe opacity no new focal opacities were noted. There is mildly low lung volumes and there is suggestion of volume overload. Her initial troponin was normal. While in the emergency department she had additional episode of chest discomfort. She was given morphine initially which caused some itchiness of the right hand which is the side her IV was in. Second time she was given Dilaudid which seemed to help the pain. She had a repeat EKG with the new onset of chest pain and again there was no acute ST elevations. Hospital medicine was asked to see the patient and she will be placed under the hospitalist service. Past Medical/Surgical History Medical Problems: (1) Coronary Artery Disease with prior CABG and at least one Coronary Artery Stent (2) Diabetes mellitus II on insulin (3) Moderate aortic/mitral insufficiency (4) Hypertension (5) Oxygen dependent at HS at 2L (6) CHF - uncertain systolic vs diastolic (7) Recent Pneumonia - discharge 10/07 Surgical Problems: (1) cholecystectomy (2) S/P triple vessel bypass (3) Hysterectomy (4) Coronary stent x 1 (5) "stent in right leg" Family History Diabetes mellitus Heart disease Hypertension Lung disease Social History Smoking Status: Never Smoker Smokeless Tobacco Use: No Alcohol Use: none Drug Use: none Marital Status: Housing status: lives with family Occupational Status: unemployed Allergies Coded Allergies: Adhesives (Verified Allergy, Severe, HIVES,RASH, 10/29/17) Amoxicillin (Verified Allergy, Severe, HIVES, 10/29/17) Cephalexin (Verified Allergy, Severe, HIVES, 10/29/17) Clarithromycin (Verified Allergy, Severe, HIVES, 10/29/17) Clavulanic Acid (Verified Allergy, Severe, HIVES, 10/29/17) Metaproterenol (Verified Allergy, Severe, HIVES, 10/29/17) Home Medications Scheduled Apixaban (Eliquis), 5 MG PO BID Aspirin (Aspirin Chewable), 81 MG PO QAM Atorvastatin (Lipitor), 80 MG PO HS Carvedilol (Coreg), 6.25 MG PO QAM Famotidine (Pepcid), 20 MG PO BID Fish Oil ([place]-3), 1 CAP PO BID Furosemide (Lasix), 40 MG PO BID Insulin Human NPH (Novolin N), 25 UNITS SQ BID Isosorbide Mononitrate Ext Rel (Imdur Ext Rel), 60 MG PO QAM Lisinopril (Zestril), 20 MG PO QAM Lorazepam (Ativan), 1 MG PO BID Potassium Chloride (Micro-K Ext Rel), 10 MEQ PO BID Sertraline (Zoloft), 50 MG PO BID Scheduled PRN Nitroglycerin (Nitrostat), 1 TAB SL UD PRN for CHEST PAIN Review of Systems Constitutional: No fever, No chills, No sweats, No weight loss, No weakness, No fatigue, No problem reported Eyes: No worsening of vision, No eye pain, No redness, No discharge, No diplopia, No problem reported ENT: No hearing loss, No unusual epistaxis, No nasal symptoms, No sore throat, No tinnitus, No dental problems, No trouble swallowing, No problem reported Respiratory: + cough, + sputum, + shortness of breath Cardiovascular: + chest pain, + edema Abdomen: + nausea, + vomiting Musculoskeletal: No joint pain, No muscle pain, No swelling, No calf pain, No problem reported Genitourinary - Female: No dysuria, No urinary frequency, No urinary urgency, No urinary incontinence, No urinary retention, No hematuria, No dysmenorrhea, No menorrhagia, No metrorrhagia, No rash, No vaginal bleeding, No vaginal discharge, No vaginal itching, No vulvodynia, No , No problem reported Neurologic: No memory loss, No paralysis, No weakness, No numbness/tingling, No vertigo, No balance problems, No problem reported Psychiatric: No depression symptoms, No anhedonism, No anxiety, No insomnia, No substance abuse, No problem reported Endocrine: No fatigue, No excessive thirst, No excessive urination, No problem reported Hematologic / Lymphatic: No abnormal bleeding/bruising, No clotting problems, No swollen lymph nodes, No night sweats, No problem reported Integumentary: No rash, No itch, No new/changing skin lesions, No color change , No bleeding, No problem reported Allergic / Immunologic: No environmental allergies, No seasonal allergies, No pet sensitivities, No food allergies, No hives, No frequent infections, No poor healing, No prolonged convalescence, No problem reported Physical Exam Vital Signs Date Time Temp Pulse Resp B/P (MAP) Pulse Ox O2 Delivery O2 Flow Rate FiO2 10/29/17 13:38 95 Nasal Cannula 3.0 10/29/17 13:14 90 10/29/17 10:48 82 10/29/17 10:47 95 Nasal Cannula 3.0 10/29/17 10:47 95 Nasal Cannula 3.0 10/29/17 10:44 37.0 96 16 140/85 93 Nasal Cannula 3.0 General Appearance: no apparent distress Head: normocephalic, atraumatic Eyes: normal inspection, sclerae normal ENT: hearing grossly normal, pharynx normal (no dentition) Neck: supple (large), no JVD, no carotid bruits Respiratory/Chest: chest non-tender, no respiratory distress, no accessory muscle use, + crackles (few bibasilar) Cardiovascular: no JVD, normal peripheral pulses, + irregularly irregular Abdomen/GI: normal bowel sounds, non tender, soft (obese) Back: normal inspection, no CVA tenderness, no muscle spasm Extremities/Musculoskelatal: normal inspection, normal capillary refill, + pedal edema (trace BLE) Neurologic/Psych: alert, normal mood/affect, oriented x 3 Skin: normal color, warm/dry, no rash Diagnostics Laboratory Results Results Past 24 Hours Test 10/29/17 10:59 Range/Units White Blood Count 6.62 4.8-10.8 K/uL Red Blood Count 4.37 4.2-5.4 M/uL Hemoglobin 12.2 12.0-16.0 g/dL Hematocrit 37.0 37-47 % Mean Corpuscular Volume 84.7 80-100 fL Mean Corpuscular Hemoglobin 27.9 25-34 pg Mean Corpuscular Hemoglobin Concent 33.0 32-36 g/dl Platelet Count 129 130-400 K/uL Mean Platelet Volume 9.5 7.4-10.4 fL Neutrophils (%) (Auto) 65.2 % Lymphocytes (%) (Auto) 26.0 % Monocytes (%) (Auto) 5.1 % Eosinophils (%) (Auto) 3.3 % Basophils (%) (Auto) 0.2 % Neutrophils # (Auto) 4.32 1.4-6.5 K/uL Lymphocytes # (Auto) 1.72 1.2-3.4 K/uL Monocytes # (Auto) 0.34 0.11-0.59 K/uL Eosinophils # (Auto) 0.22 0-0.5 K/uL Basophils # (Auto) 0.01 0-0.2 K/uL RDW Standard Deviation 44.6 36.4-46.3 fL RDW Coefficient of Variation 14.5 11.5-14.5 % Immature Granulocyte % (Auto) 0.2 % Immature Granulocyte # (Auto) 0.01 0.00-0.02 K/uL Prothrombin Time 11.9 9.0-12.0 SECONDS Prothromb Time International Ratio 1.1 0.9-1.1 Activated Partial Thromboplast Time 27.3 21.0-31.0 SECONDS Partial Thromboplastin Ratio 1.1 Sodium Level 132 136-145 mmol/L Potassium Level 4.2 3.5-5.1 mmol/L Chloride Level 100 98-107 mmol/L Carbon Dioxide Level 30 21-32 mmol/L Anion Gap 2.0 3-11 mmol/L Blood Urea Nitrogen 28 7-18 mg/dl Creatinine 0.98 0.60-1.20 mg/dl Est Creatinine Clear Calc Drug Dose 61.2 ml/min Estimated GFR () 65.9 Estimated GFR (Non- 56.8 BUN/Creatinine Ratio 28.3 10-20 Random Glucose 348 70-99 mg/dl Calcium Level 8.7 8.5-10.1 mg/dl Magnesium Level 1.9 1.8-2.4 mg/dl Total Bilirubin 0.6 0.2-1 mg/dl Direct Bilirubin 0.2 0-0.2 mg/dl Aspartate Amino Transf (AST/SGOT) 18 15-37 U/L Alanine Aminotransferase (ALT/SGPT) 32 12-78 U/L Alkaline Phosphatase 76 45-117 U/L Total Creatine Kinase 122 26-192 U/L Creatine Kinase MB 2.7 0.5-3.6 ng/ml Creatine Kinase MB Ratio 2.2 0-3.0 Troponin I < 0.015 0-0.045 ng/ml Total Protein 7.0 6.4-8.2 gm/dl Albumin 3.2 3.4-5.0 gm/dl Beta-Hydroxybutyric Acid 0.78 0.2-2.81 mg/dL Thyroid Stimulating Hormone (TSH) 4.530 0.300-4.500 uIu/ml Diagnostic Radiology CHEST ONE VIEW PORTABLE CLINICAL HISTORY: 72 years-old Female presenting with EVALUATE WEAKNESS. TECHNIQUE: Portable upright AP view of the chest was obtained. COMPARISON: 01/16/2017. FINDINGS: Median sternotomy wires and mediastinal surgical clips unchanged. Atherosclerosis of the aortic arch. Cardiac silhouette normal in size. Pulmonary vascular prominence. Resolution of the previously noted left mid to upper lung opacity. Mildly low lung volumes. No focal opacity. No large effusion or pneumothorax. Degenerative changes of the thoracic spine. Deformity of the left humeral neck consistent with fracture. Upper abdomen normal. IMPRESSION: 1. Resolution of previous left mid to upper lung opacity. No new focal opacity. 2. Mildly low lung volumes. 3. Suggestion of volume overload. 4. Left humeral neck fracture, which was present on prior CT from 01/12/2017. EKG atrial fibrillation with non specific ST changes Impression Assessment and Plan 72-year-old female with history of congestive heart failure presented with left- sided chest pain. 1. Atypical chest pain-will rule out for acute coronary syndrome with serial troponin. Place on telemetry. EKG with any chest pain. Consult cardiology. 2. Coronary artery disease with prior stenting and CABG. Will continue on aspirin carvedilol and atorvastatin as well as imdur. 3. Congestive heart failure-uncertain whether systolic versus diastolic will try to obtain an updated echo. Patient states she had one done in the last couple months. She is on furosemide 40 mg twice daily at home which we will continue and she is already on aspirin and carvedilol. We will continue I's and O's and daily weight. 4. Chronic atrial fibrillation on Eliquis. She remains in atrial fibrillation. She was seen 1 week ago in the office by Dr. Magaña [facility] cardiology and he apparently is planning on trying a cardioversion outpatient which she is felt in the past. We will continue her on carvedilol and she is on Eliquis. 5. Diabetes mellitus type 2-patient is on NPH insulin twice daily at home. We will continue that for now. Could switch to Lantus if needed. Will consult pharmacy for glycemic management. 6. DVT prophylaxis will be with SCDs and teds and Eliquis 7. She is a full code 8. Disposition planning. Estimated length of stay is likely 1 midnight this time no additional discharge needs are anticipated Advanced Directives Existing Living Will: No Existing Power of Check Processor: No Resuscitation Status VTE Prophylaxis Will order VTE Prophylaxis: Yes Reviewed: Pt Seen/Exam by Me History Pt is feeling better now. No return of chest pain. She wears O2 at night only generally but is feeling better with it on now. She is eating dinner and tolerating PO without issue. Agree with HPI/ROS as noted by SPECIAL EDUCATION COORDINATOR. General Appearance: no apparent distress, obese Eye Exam: bilateral eye normal inspection, bilateral eye other (nml sclera) Respiratory: normal breath sounds, no respiratory distress Cardiovascular: normal peripheral pulses, regular rate, rhythm Gastrointestinal: non tender, soft Extremities: non-tender, no pedal edema Neurologic/Psychiatric: alert, normal mood/affect, oriented x 3 Skin Characteristics: normal color, warm/dry Assessment/Plan Agree with plan as outlined above Chest pain r/o Hx of CABG, stents Follows with cardiology out of [facility] [place] No return of pain
--- NOTE | 2017-10-29 14:56 | Pharmacy Progress Note ---
Glycemic Control Intl Consult Date of Service Oct 29, 2017. Scope Glycemic Pharmacist consulted by Jayro May on 10/29/17 for glycemic control and to write orders per [facility] inpatient glycemic control protocol Objective Weight (Kilograms): 114.000 Accuchecks BSG (last 24hrs): Test 10/29/17 10:59 Random Glucose 348 mg/dl (70-99) Laboratory Data (last 24hrs) Test 10/29/17 10:59 Anion Gap 2.0 mmol/L BUN/Creatinine Ratio 28.3 Blood Urea Nitrogen 28 mg/dl Creatinine 0.98 mg/dl Potassium Level 4.2 mmol/L Sodium Level 132 mmol/L White Blood Count 6.62 K/uL Red Blood Count 4.37 M/uL Hemoglobin 12.2 g/dL Hematocrit 37.0 % Mean Corpuscular Volume 84.7 fL Mean Corpuscular Hemoglobin 27.9 pg Mean Corpuscular Hemoglobin Concent 33.0 g/dl Platelet Count 129 K/uL Mean Platelet Volume 9.5 fL Neutrophils (%) (Auto) 65.2 % Lymphocytes (%) (Auto) 26.0 % Monocytes (%) (Auto) 5.1 % Eosinophils (%) (Auto) 3.3 % Basophils (%) (Auto) 0.2 % Neutrophils # (Auto) 4.32 K/uL Lymphocytes # (Auto) 1.72 K/uL Monocytes # (Auto) 0.34 K/uL Eosinophils # (Auto) 0.22 K/uL Basophils # (Auto) 0.01 K/uL Recent Pertinent Medications Outpatient Anti-diabetic Regimen: * NPH 25 units twice daily * A1c = 7.9 % 01/13/17 Risk Factors for Insulin Resistance: * Diet: type 2 diabetic diet Assessment & Plan ASSESSMENT: * Mr Yuli Landin is a 72 y/o F with a PMH of CABG, CHF, recent confinement for pneumonia, and type 2 diabetes with unknown control who presents with chest pain. She is admitted for observation and ordered a diet. * Patient takes NPH at home. During a previous hospitalization, the patient tolerated Lantus 30 units BID plus Novolog CF25/CR8 for several days but this was eventually too aggressive. Admitting BSG is 348 mg/dL. * Since patient will only be here for 1 midnight (expected), continue NPH. Will give home dose tonight and evaluate tomorrow morning. Will use slightly tighter Novolog parameters (than previous hospitalization). Given insulin bolus if blood sugar still over 300 mg/dL at dinner. No overnight checks due to pharmacokinetics of NPH. PLAN FOR INPATIENT GLYCEMIC CONTROL: * Basal insulin with NPH 25 units x 1 with dinner tonight then evaluate tomorrow * Correctional Insulin with NOVOLOG per scale ACHS or Q6hrs while NPO * Goal Range: Low 110 mg/dL - High 140 mg/dL * Correction Factor: 20 mg/dL/unit * Nutritional / Prandial insulin per carb ratio of 1 unit per 7 grams CHO consumed * Please note that the plan above was derived based on current level of insulin resistance and hospital stress. These recommendations are appropriate for inpatient admission only. Plan of care upon discharge will need to be reassessed to avoid potential outpatient hypo/hyperglycemia. Thank you.
[2017-10-29] MEDS ORDERED: GLUCOSE 40% GEL 15 GM TUBE PO PRN (15:00)
[2017-10-29] MEDS ORDERED: DEXTROSE 50% 50 ML SYR IV PRN (15:00)
[2017-10-29] MEDS ORDERED: GLUCOSE 10 TABS/TUBE PO PRN (15:00)
[2017-10-29] MEDS ORDERED: GLUCAGON FOR INJ 1 MG VIAL SQ PRN (15:00)
[2017-10-29] MEDS ORDERED: INSULIN GLARGINE SOLOSTAR 100 UNITS/ML 3 ML PEN SC SCH ×2 (16:00)
[2017-10-29 16:18] VITALS: BP 150/96; PULSE 96; TEMP 36.5; O2SAT 93
[2017-10-29] MEDS: INSULIN ASPART 100 UNITS/ML 3 ML PEN SC SCH ×3 (16:30→21:00)
--- NOTE | 2017-10-29 16:58 | Cardiology Consultation ---
Cardiology Consultation Date of Service Oct 29, 2017. Cardiology Consultation CARDIOLOGY CONSULTATION DATE OF CONSULTATION: October 29, 2017 REFERRING PHYSICIAN: Russell Liao MD REASON FOR CONSULT: Non-STEMI HISTORY OF PRESENT ILLNESS: 41-year-old man with longstanding smoking history, no other major cardiac risk factors, who has not seen a physician for many years and was admitted after several episodes of chest pain with nonspecific ECG findings and a modest initial troponin elevation. Subsequent ECG changes, marked rise in troponin, and echocardiographic findings all suggest that he may have had a moderate- sized apical myocardial infarction early this morning. He had been very physically active years ago, but lifestyle changes have prompted him to be more sedentary in recent years. He denies any exertional chest pain or dyspnea prior to 2 days ago when he had significant achy heaviness in his chest with left shoulder and upper arm paresthesias while walking up stairs carrying flower bases while visiting his mother in [facility]. The symptoms resolved fairly promptly, but he awoke this morning with 5/10 chest heaviness at 5 a.m. associated with mild dyspnea and left shoulder/arm paresthesia. His symptoms lasted approximately 4 hours and resolved around the time he was admitted. He denies any diaphoresis, nausea, vomiting, back pain, neurologic symptoms, palpitations, presyncope, or syncope. He felt generally weak but denies any chest pain at the time of my evaluation. MEDICATIONS: CBD Oil ALLERGIES: Opiate derivative caused nausea PAST MEDICAL HISTORY: Longstanding but well-controlled asthma. No known hypertension, diabetes, kidney, liver, or valvular heart disease PAST SURGICAL HISTORY: None. 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 Former heavy alcohol, quit 14 years ago. FAMILY HISTORY: Grandparents with coronary artery disease. REVIEW OF SYSTEMS: As per admission H&P, generally unremarkable. PHYSICAL EXAMINATION: Middle-aged large habitus white male appears mildly uncomfortable but not acutely distressed. Vitals: Afebrile. BP 137/90, pulse 71 irregular, respirations 18 and unlabored. Skin: No unusual lesions or ecchymosis. HEENT: Unremarkable. Neck: Jugular venous pulse at the clavicle at 90, no carotid bruits. Lungs: Clear and equal breath sounds bilaterally. No wheezing or crackles. Cardiac: Regular rhythm with normal S1 and S 2. No murmur or gallop. Abdomen: Benign. Extremities: Nontender without edema. Intact peripheral pulses. Neurologic: Normal affect, nonfocal DATA: Initial ECG showed sinus rhythm at 80 bpm with anterior Q-waves but no ST deviation or T-wave abnormalities, there was [address] elevation in lead III with small inferior Q-waves. Subsequent ECG showed larger Q-waves inferiorly and new T-wave inversions anteriorly. The minor ST elevation in lead IIIhad resolved in the anterior leads had isoelectric ST segments. Admission chest x-ray was unremarkable. White count 11.7 with normal hemoglobin and platelet count. D-dimer normal at 271. Baseline INR normal at 1.0. Normal electrolytes, BUN 17, creatinine 1.04, glucose 113. AST minimally elevated of 49, normal ALT. Initial troponin 1.9, value 6 hours later was 26.9. Echocardiogram today showed moderate size area of apical and distal septal severe hypokinesis with moderate distal anterior hypokinesis, remaining workman move normally. Ejection fraction 40-45 %. No significant valvular disease and no LV thrombus on echogenic contrast. IMPRESSION: 1. Acute apical myocardial infarction, no chest pain currently. 2. History of asthma, no bronchospasm currently. 3. Longstanding tobacco smoker, plans on abstinence. 4. Otherwise healthy 41-year-old man. DISCUSSION: Patient with acute apical infarct which did not fit criteria for heart alert due to nonspecific ECG (absence of ST elevation in 2 leads) as well as his initially minor troponin elevation and subsequent symptom resolution. Given the timing of troponin elevation and the dynamic nature of his second ECG, suspect his infarct occurred this morning, although it is possible some initial damage occurred 2 days ago with additional ischemic involvement earlier today. Fortunately, he has no further chest discomfort presently, thus there is low utility to proceeding to to urgent cardiac catheterization immediately. Will load with ticagrelor and aspirin, followed by maintenance doses. Will initiate statin and beta-mitra. He has sublingual nitroglycerin ordered for PRN use will hold nitropaste due to his development of a headache after it was applied. PRN clonidine ordered for any recurrent hypertension, since he did have an elevated blood pressure earlier today. If he has recurrent chest pain, would proceed to urgent catheterization, since this would indicate myocardium at risk and viability of the involved apical segment. Will follow along closely, please contact for a change in clinical status.
[2017-10-29] MEDS ORDERED: INSULIN HUMAN NPH SC SCH (17:00)
[2017-10-29] MEDS ORDERED: INSULIN HUMAN REGULAR PER UNIT 10 UNITS in SYRINGE 9.9 ML IV SCH (17:10)
[2017-10-29] MEDS: POTASSIUM CHLORIDE 10 MEQ TABCR PO SCH (17:48)
[2017-10-29] MEDS: FUROSEMIDE 40 MG TAB PO SCH (17:49)
[2017-10-29 20:01] VITALS: BP 133/70; PULSE 73; TEMP 36.8; O2SAT 99
[2017-10-29] MEDS: CARVEDILOL 12.5 MG TAB PO SCH (20:53)
[2017-10-29] MEDS: ATORVASTATIN 40 MG TAB PO SCH (20:54)
[2017-10-29] MEDS: SERTRALINE HCL 50 MG TAB PO SCH (20:54)
[2017-10-29] MEDS ORDERED: APIXABAN 2.5 MG TAB PO SCH (21:00)
[2017-10-29] MEDS: FAMOTIDINE 20 MG TAB PO SCH (21:34)
[2017-10-30] VITALS (9 sets, daily range): BP systolic 100–146; BP diastolic 58–80; PULSE 70–118; TEMP 36.5–36.8; O2SAT 91–99
[2017-10-30] MEDS ORDERED: INSULIN ASPART 100 UNITS/ML 3 ML PEN SC SCH (02:00)
[2017-10-30] MEDS: ACETAMINOPHEN 325 MG TAB PO PRN ×2 (03:50→11:10)
[2017-10-30] MEDS ORDERED: CARVEDILOL 3.125 MG TAB PO STA (05:45)
--- NOTE | 2017-10-30 05:55 | Progress Note ---
Progress Note Date of Service Oct 30, 2017. Progress Note I was notified patient's troponin increased to 6.6. Patient previously had chest discomfort 0140 that resolved with nitro. EKG with AFIB not significantly different from previous. Patient is anticoagulated with Eliquis. will alert day team in case heparin drip to be started instead of morning dose of Eliquis
[2017-10-30 06:33] LABS: CALCIUM 9.2 mg/dl (8.5-10.1); CREATININE 1.1 mg/dl (0.60-1.20); POTASSIUM 4.3 mmol/L (3.5-5.1)
[2017-10-30] MEDS: NITROGLYCERIN 2% OINTMENT 30GM TUBE EXT SCH ×3 (06:45→17:32)
[2017-10-30] MEDS ORDERED: NURSING VERBAL MED ORDER ONE (07:15)
[2017-10-30] MEDS: ONDANSETRON INJ 2 MG/ML 2 ML VIAL IV PRN (07:49)
[2017-10-30] MEDS: FAMOTIDINE 20 MG TAB PO SCH ×2 (07:53→20:53)
[2017-10-30] MEDS: ASPIRIN 81 MG ECTAB PO SCH (07:53)
[2017-10-30] MEDS: FUROSEMIDE 40 MG TAB PO SCH ×2 (07:53→17:23)
[2017-10-30] MEDS: ISOSORBIDE MONONITRATE 60 MG TABCR PO SCH (07:54)
[2017-10-30] MEDS: LISINOPRIL 20 MG TAB PO SCH (07:54)
[2017-10-30] MEDS: SERTRALINE HCL 50 MG TAB PO SCH ×2 (07:54→20:53)
[2017-10-30] MEDS: CARVEDILOL 12.5 MG TAB PO SCH ×2 (07:54→21:25)
[2017-10-30] MEDS: POTASSIUM CHLORIDE 10 MEQ TABCR PO SCH ×2 (07:55→17:23)
[2017-10-30 08:19] LABS: BASO % 0.2 %; BASO ABS # 0.02 K/uL (0-0.2); EOS % 2.3 %; EOS ABS # 0.19 K/uL (0-0.5); HEMATOCRIT 37.9 % (37-47); IG# 0.01 K/uL (0.00-0.02); LYMPH % 19.6 %; LYMPH ABS # 1.64 K/uL (1.2-3.4); MEAN CELL VOLUME 86.1 fL (80-100); MEAN CORPUSCULAR HEMOGLOBIN 27.3 pg (25-34); MEAN CORPUSCULAR HGB CONC 31.7 g/dl (32-36); MEAN PLATELET VOLUME 9.6 fL (7.4-10.4); MONO % 5.4 %; MONO ABS # 0.45 K/uL (0.11-0.59); NEUT % 72.4 %; NEUT ABS # 6.07 K/uL (1.4-6.5); PLATELET COUNT 124 K/uL (130-400); RED CELL DISTRIBUTION WIDTH CV 14.7 % (11.5-14.5); RED CELL DISTRIBUTION WIDTH SD 46.5 fL (36.4-46.3); WHITE BLOOD COUNT 8.38 K/uL (4.8-10.8)
[2017-10-30 08:28] LABS: INR 1.1 (0.9-1.1)
[2017-10-30] MEDS ORDERED: INSULIN HUMAN NPH SC SCH (08:30)
[2017-10-30] MEDS ORDERED: NURSING DECISION MEDICATION ORDER SCH (08:45)
[2017-10-30] MEDS ORDERED: MICONAZOLE NITRATE POWDER 43 GM EXT PRN (09:00)
[2017-10-30] MEDS ORDERED: INSULIN GLARGINE SOLOSTAR 100 UNITS/ML 3 ML PEN SC SCH (09:00)
[2017-10-30] MEDS: INSULIN ASPART 100 UNITS/ML 3 ML PEN SC SCH ×4 (09:17→20:57)
[2017-10-30] MEDS ORDERED: HEPARIN IV BOLUS 6,000 UNIT in SYRINGE 0 ML IV ONE (10:00)
--- NOTE | 2017-10-30 10:09 | Hospitalist Progress Note ---
Hospitalist Progress Note Date of Service Oct 30, 2017. Subjective Pt evaluation today including: conversation w/ patient, conversation w/ [employer] identity management consultant (Cardiology) Patient reports she had a bowel movement this morning and had some lower abdominal cramping afterwards which is now resolving. She did have some dull substernal chest pain with ambulating out of the bed to the chair that resolved after she sat and rested. She reports that this was not nearly as severe as yesterday's episode. She does admit to having some memory difficulties, and is not able to give me details about her cardiac history, but knows that she had a CABG and stent in the past. Denies shortness of breath. Denies urinary symptoms, denies blood in her stool. Troponin became elevated up to 18 early this morning, and as above, she has had recurrence of chest pain relieved with nitroglycerin and then again with rest this morning. All Other Systems: Reviewed and Negative Objective Vital Signs Date Time Temp Pulse Resp B/P (MAP) Pulse Ox O2 Delivery O2 Flow Rate FiO2 10/30/17 08:00 95 Nasal Cannula 3.0 10/30/17 08:00 Nasal Cannula 3.0 10/30/17 07:07 36.8 118 22 127/76 (93) 95 Nasal Cannula 3.0 10/30/17 04:20 36.7 107 18 146/80 (102) 95 Nasal Cannula 3.0 10/30/17 04:00 Nasal Cannula 3.0 10/30/17 00:15 36.5 71 16 108/67 (81) 99 Nasal Cannula 3.0 10/30/17 00:00 Nasal Cannula 3.0 10/29/17 20:01 36.8 73 18 133/70 (91) 99 Nasal Cannula 3.0 10/29/17 20:00 Nasal Cannula 3.0 10/29/17 16:18 36.5 96 18 150/96 (114) 93 3.0 10/29/17 16:00 Nasal Cannula 3.0 10/29/17 15:39 37.0 99 20 119/84 92 10/29/17 15:35 99 20 92 10/29/17 15:31 119/84 10/29/17 15:30 92 17 93 10/29/17 15:25 96 11 91 10/29/17 15:20 108 14 92 10/29/17 15:15 106 13 91 10/29/17 15:10 116 15 92 10/29/17 15:05 116 16 92 10/29/17 15:02 136/69 10/29/17 14:57 167/78 10/29/17 14:35 105 25 93 10/29/17 14:31 152/106 10/29/17 14:05 86 14 94 10/29/17 14:01 142/96 10/29/17 13:38 95 Nasal Cannula 3.0 10/29/17 13:35 89 12 95 10/29/17 13:31 154/95 10/29/17 13:14 90 10/29/17 13:05 110 19 91 10/29/17 13:02 129/97 10/29/17 12:46 148/76 10/29/17 12:36 150/90 10/29/17 12:35 87 12 97 10/29/17 12:05 82 14 97 10/29/17 12:02 172/90 10/29/17 11:35 66 16 98 10/29/17 11:05 78 16 95 10/29/17 11:01 157/100 10/29/17 10:56 140/83 10/29/17 10:48 82 10/29/17 10:47 95 Nasal Cannula 3.0 10/29/17 10:47 95 Nasal Cannula 3.0 10/29/17 10:44 37.0 96 16 140/85 93 Nasal Cannula 3.0 10/29/17 10:43 140/85 Physical Exam General Appearance: WD/WN, no apparent distress, + obese Eyes: normal inspection, sclerae normal ENT: hearing grossly normal Neck: trachea midline Respiratory/Chest: no respiratory distress, no accessory muscle use, + crackles (At the bases bilaterally) Cardiovascular: no murmur, + irregularly irregular (With normal rate) Abdomen: normal bowel sounds, non tender, soft (And obese) Extremities: no calf tenderness, + swelling (Trace pitting edema to the knees bilaterally) Neurologic/Psychiatric: alert, normal mood/affect Skin: normal color, warm/dry, no rash Laboratory Results Last 24 Hours Test 10/29/17 10:59 10/29/17 16:16 10/29/17 17:04 10/29/17 19:49 White Blood Count 6.62 K/uL Red Blood Count 4.37 M/uL Hemoglobin 12.2 g/dL Hematocrit 37.0 % Mean Corpuscular Volume 84.7 fL Mean Corpuscular Hemoglobin 27.9 pg Mean Corpuscular Hemoglobin Concent 33.0 g/dl Platelet Count 129 K/uL Mean Platelet Volume 9.5 fL Neutrophils (%) (Auto) 65.2 % Lymphocytes (%) (Auto) 26.0 % Monocytes (%) (Auto) 5.1 % Eosinophils (%) (Auto) 3.3 % Basophils (%) (Auto) 0.2 % Neutrophils # (Auto) 4.32 K/uL Lymphocytes # (Auto) 1.72 K/uL Monocytes # (Auto) 0.34 K/uL Eosinophils # (Auto) 0.22 K/uL Basophils # (Auto) 0.01 K/uL RDW Standard Deviation 44.6 fL RDW Coefficient of Variation 14.5 % Immature Granulocyte % (Auto) 0.2 % Immature Granulocyte # (Auto) 0.01 K/uL Prothrombin Time 11.9 SECONDS Prothromb Time International Ratio 1.1 Activated Partial Thromboplast Time 27.3 SECONDS Partial Thromboplastin Ratio 1.1 Sodium Level 132 mmol/L Potassium Level 4.2 mmol/L Chloride Level 100 mmol/L Carbon Dioxide Level 30 mmol/L Anion Gap 2.0 mmol/L Blood Urea Nitrogen 28 mg/dl Creatinine 0.98 mg/dl Est Creatinine Clear Calc Drug Dose 61.2 ml/min Estimated GFR () 65.9 Estimated GFR (Non- 56.8 BUN/Creatinine Ratio 28.3 Random Glucose 348 mg/dl Calcium Level 8.7 mg/dl Magnesium Level 1.9 mg/dl Total Bilirubin 0.6 mg/dl Direct Bilirubin 0.2 mg/dl Aspartate Amino Transf (AST/SGOT) 18 U/L Alanine Aminotransferase (ALT/SGPT) 32 U/L Alkaline Phosphatase 76 U/L Total Creatine Kinase 122 U/L Creatine Kinase MB 2.7 ng/ml Creatine Kinase MB Ratio 2.2 Troponin I < 0.015 ng/ml 0.254 ng/ml Total Protein 7.0 gm/dl Albumin 3.2 gm/dl Beta-Hydroxybutyric Acid 0.78 mg/dL Thyroid Stimulating Hormone (TSH) 4.530 uIu/ml Bedside Glucose 389 mg/dl 262 mg/dl Test 10/29/17 21:55 10/29/17 22:49 10/30/17 01:38 10/30/17 02:46 Urine Color YELLOW Urine Appearance CLEAR Urine pH 5.0 Urine Specific [place] 1.018 Urine Protein NEG Urine Glucose (UA) 2+ Urine Ketones NEG Urine Occult Blood NEG Urine Nitrite NEG Urine Bilirubin NEG Urine Urobilinogen NEG Urine Leukocyte Esterase NEG Troponin I 6.610 ng/ml Bedside Glucose 82 mg/dl 108 mg/dl Test 10/30/17 04:57 10/30/17 05:47 10/30/17 07:15 10/30/17 08:07 Troponin I 18.600 ng/ml Triglycerides Level 112 mg/dl Cholesterol Level 98 mg/dl HDL Cholesterol 34 mg/dl LDL Cholesterol, Calculated 42 mg/dl VLDL Cholesterol, Calculated 22 mg/dl Cholesterol/HDL Ratio 2.9 Sodium Level 135 mmol/L Potassium Level 4.3 mmol/L Chloride Level 100 mmol/L Carbon Dioxide Level 32 mmol/L Anion Gap 3.0 mmol/L Blood Urea Nitrogen 27 mg/dl Creatinine 1.10 mg/dl Est Creatinine Clear Calc Drug Dose 54.9 ml/min Estimated GFR () 57.3 Estimated GFR (Non- 49.4 BUN/Creatinine Ratio 24.3 Random Glucose 156 mg/dl Calcium Level 9.2 mg/dl Magnesium Level 1.9 mg/dl Bedside Glucose 153 mg/dl White Blood Count 8.38 K/uL Red Blood Count 4.40 M/uL Hemoglobin 12.0 g/dL Hematocrit 37.9 % Mean Corpuscular Volume 86.1 fL Mean Corpuscular Hemoglobin 27.3 pg Mean Corpuscular Hemoglobin Concent 31.7 g/dl Platelet Count 124 K/uL Mean Platelet Volume 9.6 fL Neutrophils (%) (Auto) 72.4 % Lymphocytes (%) (Auto) 19.6 % Monocytes (%) (Auto) 5.4 % Eosinophils (%) (Auto) 2.3 % Basophils (%) (Auto) 0.2 % Neutrophils # (Auto) 6.07 K/uL Lymphocytes # (Auto) 1.64 K/uL Monocytes # (Auto) 0.45 K/uL Eosinophils # (Auto) 0.19 K/uL Basophils # (Auto) 0.02 K/uL RDW Standard Deviation 46.5 fL RDW Coefficient of Variation 14.7 % Immature Granulocyte % (Auto) 0.1 % Immature Granulocyte # (Auto) 0.01 K/uL Prothrombin Time 11.6 SECONDS Prothromb Time International Ratio 1.1 Activated Partial Thromboplast Time 26.0 SECONDS Partial Thromboplastin Ratio 1.0 Assessment and Plan This patient is a 72-year-old female with history of CAD S/P CABG and stent, chronic A. fib on Eliquis, DM 2, chronic CHF unknown type, GERD presented with left-sided chest pain, found to have NSTEMI NSTEMI/chest pain/CAD with history of CABG and stents-serial troponin continues to trend upward to 18. ECGs without evidence of ischemia but with bifascicular block -Will continue on aspirin, carvedilol,atorvastatin, as well as Imdur -Continue to trend serial troponin until peaks -Follow ECG in the morning -Discussed with cardiology who will see her today-most likely will have cardiac catheterization tomorrow unless has recurrent persistent chest pain -Continue on telemetry to monitor for cardiac arrhythmia -Hold Eliquis and start heparin drip now in preparation for cardiac cath -N.p.o. after midnight -Check echo -We will place on bedrest with bathroom privileges given angina with activity Acute on chronic CHF-uncertain whether systolic versus diastolic will try to obtain records from [facility] -Check echocardiogram an updated echo. -Continue furosemide 40 mg p.o. twice daily at home -Continue carvedilol. -Continue I's and O's and daily weight, low-sodium diet, fluid restrict to 1800 mL's per day Chronic atrial fibrillation on Eliquis. She remains in atrial fibrillation. Rate is controlled she was seen 1 week ago in the office by Dr. Magaña [facility] cardiology and he apparently is planning on trying a cardioversion outpatient. -continue her on carvedilol -Holding Eliquis and starting heparin drip as above Diabetes mellitus type 2-patient is on NPH insulin twice daily at home. -Pharmacy has discontinued her NPH -Sliding scale insulin only is ordered right now -Pharmacy for glycemic management consulted by admitting physician -Check hemoglobin A1c GERD-stable -Continue Pepcid Depression-stable -Continue sertraline DVT prophylaxis will be with SCDs and teds and heparin drip Disposition-remain on telemetry, will need PT/OT consults when more stable
[2017-10-30] MEDS: HEPARIN 25,000 UNIT/500ML D5W 500 ML IV SCH (10:15)
[2017-10-30] MEDS ORDERED: HYDROmorphone INJ 0.5 MG/0.5 ML SYR IV STA (10:45)
[2017-10-30] MEDS ORDERED: HYDROmorphone INJ 0.5 MG/0.5 ML SYR IV PRN (10:45)
--- NOTE | 2017-10-30 10:54 | DIAGNOSTIC IMAGING REPORT ---
KUB CLINICAL HISTORY: severe lower abdominal pain, diarrhea COMPARISON STUDY: CT scan dated 01/13/2017 FINDINGS: An IVC filter is visualized. There is a left pelvic surgical clip. There are postsurgical changes involving the left hip. There is no pathologic bowel dilatation. There are no calcifications suspicious for renal calculi. Multiple pelvic basin calcifications likely represent phleboliths. IMPRESSION: No evidence of pathologic bowel dilatation. Electronically signed by: Elijah Womack M.D. 10/30/2017 10:53 AM Dictated Date/Time: 10/30/2017 10:52 AM
[2017-10-30 11:21] LABS: HEMATOCRIT 36.1 % (37-47); HEMOGLOBIN 11.6 g/dL (12.0-16.0); MEAN CELL VOLUME 85.5 fL (80-100); MEAN CORPUSCULAR HEMOGLOBIN 27.5 pg (25-34); MEAN PLATELET VOLUME 9.4 fL (7.4-10.4); PLATELET COUNT 129 K/uL (130-400); RED CELL DISTRIBUTION WIDTH CV 14.8 % (11.5-14.5); RED CELL DISTRIBUTION WIDTH SD 46.1 fL (36.4-46.3); WHITE BLOOD COUNT 9.78 K/uL (4.8-10.8)
[2017-10-30 11:30] LABS: MEAN CORPUSCULAR HGB CONC 32.1 g/dl (32-36)
--- NOTE | 2017-10-30 14:05 | ECHOCARDIOGRAM REPORT ---
*NOTICE TO RECEIVING REPUBLICAN AGENCY This information is strictly Confidential and protected under [place] law. [place] law prohibits you from making any further disclosure of this information unless further disclosure is expressly permitted by the written consent of the person to whom it pertains or is authorized by law. A general authorization for the release of medical or other information is not sufficient for this purpose. Hospital accepts no responsibility if the information is made available to any other person, INCLUDING THE PATIENT. Interpretation Summary * Name: ANIKA ALMODOVAR Study Date: 10/30/2017 11:19 AM BP: 124/76 mmHg * Patient Location: [facility]\S\N284\S\2 HR: 80 * : 1945 (M/d/yyyy) Gender: Female Height: 63 in * Age: 72 yrs Ethnicity: [place] Weight: 254 lb * Ordering Physician: Pipo Villavicencio * Referring Physician: Self, Referred * Performed By: Marcial Rich RDCS * * Reason For Study: Chest pain * BSA: 2.1 m2 * -- Conclusions -- * The left ventricle is normal in size. * Left ventricular systolic function is normal. * Ejection Fraction = 60-65%. * Flattened septum is consistent with RV pressure/volume overload. * Small area of inferobasal deformity and hypokinesis, small infarct vs. anatomic variant. All other workman move normally. * The right ventricle is moderately dilated. * The right ventricular systolic function is moderately reduced. * There is moderate mitral annular calcification. * There is mild to moderate mitral regurgitation. * The left atrium is moderately dilated. * There is mild to moderate tricuspid regurgitation. * Right ventricular systolic pressure is elevated at 30-40mmHg. * Mild pulmonic valvular regurgitation. * End diastolic MD jet velocity of 1.4 m/s is consitent with mildly elevated PA end diastolic pressure. * The inferior vena cava is moderately dilated. Procedure Details * A complete two-dimensional transthoracic echocardiogram was performed (2D, M-mode, Doppler and color flow Doppler). * The study was technically adequate. Left Ventricle * The left ventricle is normal in size. * There is normal left ventricular wall thickness. * Left ventricular systolic function is normal. * Ejection Fraction = 60-65%. * Flattened septum is consistent with RV pressure/volume overload. * Small area of inferobasal deformity and hypokinesis, small infarct vs. anatomic variant. All other workman move normally. Right Ventricle * The right ventricle is moderately dilated. * The right ventricular systolic function is moderately reduced. Atria * The left atrium is moderately dilated. * The right atrium is mildly dilated. * The interatrial septum is intact with no evidence for an atrial septal defect. Mitral Valve * There is moderate mitral annular calcification. * There is mild to moderate mitral regurgitation. Tricuspid Valve * The tricuspid valve is normal in structure and function. * There is mild to moderate tricuspid regurgitation. * Right ventricular systolic pressure is elevated at 30-40mmHg. Aortic Valve * The aortic valve opens well. * The aortic valve is trileaflet. * No hemodynamically significant valvular aortic stenosis. * There is no significant aortic regurgitation. Pulmonic Valve * The pulmonary valve is inadequately visualized, but the Doppler data is adequate for interpretation. * Mild pulmonic valvular regurgitation. * End diastolic MD jet velocity of 1.4 m/s is consitent with mildly elevated PA end diastolic pressure. Great Vessels * Aortic arch of normal dimension. * The aortic root is normal size. * No obvious dissection could be visualized. * The pulmonary is not well visualized. Pericardium/Pleural * There is no pericardial effusion. Great Vessels * The inferior vena cava is moderately dilated. MMode 2D Measurements and Calculations IVSd 0.92 cm IVSs 1.4 cm LVIDd 5.2 cm LVIDs 3.4 cm LVPWd 1.0 cm LVPWs 1.4 cm IVS/LVPW 0.89 FS 34.8 % EDV(Teich) 130.1 ml ESV(Teich) 47.3 ml EF(Teich) 63.6 % EDV(cubed) 141.4 ml ESV(cubed) 39.2 ml EF(cubed) 72.3 % % IVS thick 47.8 % % LVPW thick 36.5 % LV mass(C)d 189.4 grams LV mass(C)dI 88.5 grams/m\S\2 LV mass(C)s 164.0 grams LV mass(C)sI 76.6 grams/m\S\2 SV(Teich) 82.7 ml SI(Teich) 38.6 ml/m\S\2 SV(cubed) 102.2 ml SI(cubed) 47.7 ml/m\S\2 EPSS 0.51 cm Ao root diam 3.0 cm Ao root area 7.2 cm\S\2 ACS 1.6 cm LA dimension 5.0 cm asc Aorta Diam 3.8 cm LA/Ao 1.7 LVOT diam 2.0 cm LVOT area 3.2 cm\S\2 LVAd ap4 24.2 cm\S\2 LVLd ap4 7.6 cm EDV(MOD-sp4) 64.3 ml EDV(sp4-el) 65.6 ml LVAs ap4 15.1 cm\S\2 LVLs ap4 6.8 cm ESV(MOD-sp4) 27.8 ml ESV(sp4-el) 28.2 ml EF(MOD-sp4) 56.8 % EF(sp4-el) 56.9 % LVAd ap2 25.6 cm\S\2 LVLd ap2 8.2 cm EDV(MOD-sp2) 69.3 ml EDV(sp2-el) 67.8 ml LVAs ap2 16.1 cm\S\2 LVLs ap2 7.4 cm ESV(MOD-sp2) 32.8 ml ESV(sp2-el) 29.8 ml EF(MOD-sp2) 52.7 % EF(sp2-el) 56.0 % LVLd %diff 7.6 % EDV(MOD-bp) 68.3 ml LVLs %diff 7.4 % ESV(MOD-bp) 30.1 ml EF(MOD-bp) 55.9 % SV(MOD-sp4) 36.5 ml SI(MOD-sp4) 17.1 ml/m\S\2 SV(MOD-sp2) 36.6 ml SI(MOD-sp2) 17.1 ml/m\S\2 SV(MOD-bp) 38.2 ml SI(MOD-bp) 17.8 ml/m\S\2 SV(sp4-el) 37.3 ml SI(sp4-el) 17.4 ml/m\S\2 SV(sp2-el) 38.0 ml SI(sp2-el) 17.7 ml/m\S\2 Doppler Measurements and Calculations MV E max jed 133.7 cm/sec MV dec time 0.16 sec Ao V2 max 127.7 cm/sec Ao max PG 6.5 mmHg Ao max PG (full) 3.7 mmHg JEROD(V,A) 2.1 cm\S\2 JEROD(V,D) 2.1 cm\S\2 LV V1 max PG 2.8 mmHg LV V1 max 83.9 cm/sec PA V2 max 97.3 cm/sec PA max PG 3.8 mmHg PA acc slope 826.4 cm/sec\S\2 PA acc time 0.10 sec PI end-d jed 146.4 cm/sec TR max jed 310.2 cm/sec PA pr(Accel) 35.3 mmHg
--- NOTE | 2017-10-30 14:50 | Pharmacy Progress Note ---
Pharmacy Glycemic Short Note 2 Date of Service Oct 30, 2017. OUTPATIENT ANTIDIABETIC REGIMEN: * NPH 25 units SQ BID ASSESSMENT: * Mr Yuli Landin is a 72 y/o F with a PMH of CABG, CHF, recent confinement for pneumonia, and type 2 diabetes with unknown control who presents with chest pain. She is admitted for observation and ordered a diet. She had an NSTEMI. * Patient takes NPH at home. During a previous hospitalization, the patient tolerated Lantus 30 units BID plus Novolog CF25/CR8 for several days but this was eventually too aggressive. Admitting BSG is 348 mg/dL. Patient received 10 units of IV insulin plus home dose of 25 units of NPH yesterday. She trended downwards throughout the day 389-262-82 and fasting of 153 mg/dL. Patient felt low at 82 mg/dL so goal range increased. * Patient was expected to be here only one midnight (this is why NPH was continued for easier transition to outpatient setting). Will attempt to use NPH again today with looser Novolog parameters. If patient continues to have lower blood sugars recommend changing to Lantus as she did tolerate higher doses last admission. PLAN FOR INPATIENT GLYCEMIC CONTROL: * Basal insulin * NPH 15 units SQ BID with meals * Bolus insulin * NovoLog per scale ACHS or Q6hrs while NPO * Goal Range: Low 120 mg/dL - High 160 mg/dL * Correction Factor: 25 mg/dL/unit * Nutritional / Prandial insulin per carb ratio of 1 unit per 8 grams CHO consumed PLAN FOR DISCHARGE: * HbA1C currently unknown - await new HbA1C. One from December of last year was well controlled and could represent continuing current therapy.
[2017-10-30] MEDS: INSULIN HUMAN NPH SC SCH (17:30)
[2017-10-30 17:41] LABS: PTT PATIENT 67.5 SECONDS (21.0-31.0)
--- NOTE | 2017-10-30 18:20 | Cardiology Consultation ---
Cardiology Consultation Date of Service Oct 30, 2017. Cardiology Consultation CARDIOLOGY CONSULTATION DATE OF CONSULTATION: October 30, 2017 REFERRING PHYSICIAN: Shanice ONTIVEROS REASON FOR CONSULT: Non ST-elevation myocardial infarction HISTORY OF PRESENT ILLNESS: 72-year-old woman with coronary artery disease (her CABG x3 1999), paroxysmal atrial fibrillation, hospitalized several weeks ago in [place] for pneumonia/ heart failure, who is followed from a cardiac perspective by Dr. Magaña in [place], admitted 10/29/17 with chest pain and ruled in for non ST elevation myocardial infarction (initially negative troponin increased to a peak of 20, troponin not yet declining). After her recent hospitalization for pneumonia and heart failure (discharged from [place] 10/07/17), she had felt weak and debilitated but had not noted any chest pain. She was having difficulty with some abdominal cramping and diarrhea. Yesterday morning, she awoke with significant chest pressure radiating to her back which lasted several hours and prompted her to call 911 and be brought to the ER by ambulance. She noted associated nausea and diaphoresis but no palpitations, presyncope, or syncope. After she received morphine in the ER, her chest pain resolved and has not recurred over the past 24 hours. Initial ECG in the ER showed atrial fibrillation with only nonspecific ST abnormalities which did not substantially change on subsequent ECGs. As noted, her troponin was initially negative, but baldo sequentially over 24 hours to 0.25 , 6.6, 18.6, and 20.2 earlier today. Echocardiogram today showed normal systolic function (EF 60-65 %), with septal flattening consistent with RV pressure/volume overload but only a small area of inferobasal deformity in hypokinesis (small infarct versus anatomic variant). All other workman move normally. [id number] mitral tricuspid regurgitation with mild pulmonary hypertension. At the time of my evaluation, she noted only a mild headache (felt secondary to the nitropaste), but otherwise had no complaints. She denies any chest pain, dyspnea at rest, or subjective palpitations. MEDICATIONS: Aspirin 81 mg daily Atorvastatin 80 mg daily Carvedilol 12.5 mg b.i.d. Famotidine Furosemide 40 mg b.i.d. Heparin intravenous infusion Dilaudid p.r.n. Insulin coverage Imdur 60 mg daily Lisinopril 20 mg daily Potassium chloride 10 milliequivalents b.i.d. Sertraline ALLERGIES: Adhesives, amoxicillin, cephalexin, clarithromycin, clavulanic acid , metaproteronol PAST MEDICAL HISTORY: CAD, status post CABG in 1999 Hypertension with mild LVH Diastolic dysfunction with apparent recent congestive heart failure Dyslipidemia Paroxysmal atrial fibrillation, has been in atrial fibrillation lately and a cardioversion was being considered Mild aortic insufficiency GERD Diabetes mellitus Depression PAST SURGICAL HISTORY: Cholecystectomy CABG, separate coronary stenting (uncertain if before or after CABG). Lens implants Stent in right leg Hysterectomy SOCIAL HISTORY: , lives with her . No tobacco or alcohol. FAMILY HISTORY: No premature CAD. REVIEW OF SYSTEMS: As per HPI. PHYSICAL EXAMINATION: No distress, lying quietly. Vitals: Afebrile. BP 100/67 pulse 70 and regular, respirations 16 and unlabored. Skin: No unusual lesions, does have scattered ecchymoses including her forearms.. HEENT: Unremarkable. Neck: Jugular venous pulse 1/[address] the angle of the jaw at 30 degrees , no carotid bruits. Lungs: Mildly decreased breath sounds but generally clear. No wheezing or crackles. Cardiac: Irregular but non tachycardic rhythm, 2/6 apical holosystolic murmur radiating to the axilla, no obvious gallop or diastolic murmur. Abdomen: Mild epigastric tenderness, otherwise benign. Extremities: Nontender with 1+ pretibial edema. Intact peripheral pulses. Neurologic: Normal affect, nonfocal DATA: Initial ECG showed atrial fibrillation with ventricular rate of 93 bpm, right bundle branch block, left anterior fascicular block, minor ST abnormalities ([address] depression lateral leads. Subsequent ECGs also showed atrial fibrillation with nonspecific minor ST abnormalities which remained unchanged. Chest x-ray suggested mild volume overload in shoulder an old left humeral neck fracture. As noted, troponin went from negative to 20 in 24 hours. CBC and baseline coag studies were unremarkable. Normal electrolytes, BUN 27, creatinine 1.1. Magnesium 1.9. Cholesterol 98 total. TSH minimally elevated 4.5. Echocardiogram today is as described above in history of present illness. IMPRESSION: 1. Non ST elevation myocardial infarction, symptom free currently. 2. Known coronary artery disease, status post CABG 1999, followed by Dr. Magaña 3. Paroxysmal atrial fibrillation, likely persistent in recent months (was on apixaban and carvedilol as an outpatient) 4. Recent hospitalization for pneumonia/CHF, details unknown. 5. Diabetes mellitus 6. Hypertension 7. Recent diarrhea 8. Multiple other medical problems as noted. DISCUSSION: Patient with known coronary artery disease status post prior revascularizations (including remote CABG) presented with acute chest pain and ruled in for myocardial infarction with no obvious ECG changes. Currently, her hemodynamics are favorable and she has had no chest pain for over 24 hours. Echocardiogram showed preserved systolic function with only a small inferobasal wall motion abnormality (which was more suggestive of an old small infarct or anatomic variant), no obvious new wall motion abnormalities. She had been receiving aspirin and is now off oral apixaban and on intravenous heparin, she is already on a statin and a beta-mitra. She has no contraindications to an invasive strategy for further risk stratification, family appropriately prefers further evaluation by their primary manager auto, . Will contact him to arrange for transfer for further care and possible cardiac catheterization. Will load with ticagrelor, this would be appropriate whether she pursues invasive or conservative therapy. In regards to her atrial fibrillation, her rate is well controlled on carvedilol long and she is anticoagulated with heparin currently (apixaban longer term). Thank you for this consultation, will follow along with you while she is in our institution.
[2017-10-30] MEDS ORDERED: TICAGRELOR 90 MG TAB PO ONE (18:30)
[2017-10-30] MEDS: ATORVASTATIN 40 MG TAB PO SCH (20:54)
[2017-10-31] VITALS (8 sets, daily range): BP systolic 102–152; BP diastolic 64–84; PULSE 75–92; TEMP 36.4–36.6; O2SAT 94–99
[2017-10-31 00:46] LABS: PTT PATIENT 57.7 SECONDS (21.0-31.0)
[2017-10-31] MEDS: HEPARIN 25,000 UNIT/500ML D5W 500 ML IV SCH (04:17)
[2017-10-31] MEDS: NITROGLYCERIN 2% OINTMENT 30GM TUBE EXT SCH ×2 (06:14)
[2017-10-31] MEDS: TICAGRELOR 90 MG TAB PO SCH ×2 (06:14→16:38)
[2017-10-31] MEDS: INSULIN ASPART 100 UNITS/ML 3 ML PEN SC SCH ×2 (06:30→12:26)
[2017-10-31 06:46] LABS: HEMOGLOBIN A1C 10.6 % (4.5-5.6)
[2017-10-31 07:36] LABS: BASO % 0.3 %; BASO ABS # 0.02 K/uL (0-0.2); EOS % 2.6 %; EOS ABS # 0.18 K/uL (0-0.5); HEMATOCRIT 37.2 % (37-47); IG# 0.02 K/uL (0.00-0.02); LYMPH % 22.4 %; LYMPH ABS # 1.58 K/uL (1.2-3.4); MEAN CELL VOLUME 85.5 fL (80-100); MEAN CORPUSCULAR HEMOGLOBIN 27.6 pg (25-34); MEAN CORPUSCULAR HGB CONC 32.3 g/dl (32-36); MEAN PLATELET VOLUME 9.2 fL (7.4-10.4); MONO % 7.5 %; MONO ABS # 0.53 K/uL (0.11-0.59); NEUT % 66.9 %; NEUT ABS # 4.72 K/uL (1.4-6.5); PLATELET COUNT 114 K/uL (130-400); RED CELL DISTRIBUTION WIDTH CV 15.1 % (11.5-14.5); RED CELL DISTRIBUTION WIDTH SD 46.8 fL (36.4-46.3); WHITE BLOOD COUNT 7.05 K/uL (4.8-10.8)
[2017-10-31] MEDS: INSULIN HUMAN NPH SC SCH (07:41)
[2017-10-31] MEDS: CARVEDILOL 12.5 MG TAB PO SCH (07:42)
[2017-10-31] MEDS: ASPIRIN 81 MG ECTAB PO SCH (07:42)
[2017-10-31] MEDS: POTASSIUM CHLORIDE 10 MEQ TABCR PO SCH ×2 (07:42→16:38)
[2017-10-31] MEDS: FUROSEMIDE 40 MG TAB PO SCH ×2 (07:43→16:34)
[2017-10-31] MEDS: ISOSORBIDE MONONITRATE 60 MG TABCR PO SCH (07:43)
[2017-10-31] MEDS: SERTRALINE HCL 50 MG TAB PO SCH (07:44)
[2017-10-31] MEDS: FAMOTIDINE 20 MG TAB PO SCH (07:44)
[2017-10-31] MEDS: LISINOPRIL 20 MG TAB PO SCH (07:44)
[2017-10-31 08:12] LABS: CALCIUM 9.2 mg/dl (8.5-10.1); CREATININE 1.11 mg/dl (0.60-1.20); POTASSIUM 3.8 mmol/L (3.5-5.1)
[2017-10-31] MEDS ORDERED: INSULIN HUMAN NPH SC SCH ×2 (08:30→17:00)
--- NOTE | 2017-10-31 09:47 | Clinical Documentation Query ---
CLINICAL DOCUMENTATION QUERY Latest progress note 10/30 stated, "Acute on chronic CHF-uncertain whether systolic versus diastolic will try to obtain records from [facility], [facility]." Since that time patient did have Echo completed here. The echo showed per cardiology, " preserved systolic function with only a small inferobasal wall motion abnormality (which was more suggestive of an old small infarct or anatomic variant), no obvious new wall motion abnormalities." In your clinical opinion is this patient being managed for: ( x ) Likely Acute on chronic preserved EF CHF-( please see my discharge summary ( ) Not Agree ( ) Other explanation of clinical findings (Please Explain) ( ) Unable to determine (Please Define) ( ) Need to Discuss The medical record reflects the following clinical findings, treatment, and risk factors. Clinical Indicators: As above. hypoxia 83% RA, crackles by exam. Treatment: Lasix, telemetry, I/O's, Echo, cardiology consult Risk Factors: Age, NSTEMI, HTN, and CAD Please clarify and document your clinical opinion in the progress notes and discharge summary. Terms such as "probable", "suspected", "likely", "questionable", "possible", or "still to be ruled out" are acceptable. IF IN AGREEMENT, YOU MUST DOCUMENT ABOVE DIAGNOSTIC STATEMENT IN DAILY PROGRESS NOTES AND DISCHARGE SUMMARY. This document is not part of the patient's record. Thank You, Sergio Armstrong RN [phone]
--- NOTE | 2017-10-31 09:50 | Cardiology Follow-Up ---
Cardiology Follow-Up Date of Service Oct 31, 2017. Cardiology Follow-Up SUBJECTIVE: 72-year-old woman with coronary artery disease (her CABG x3 1999), paroxysmal atrial fibrillation, hospitalized several weeks ago in [place] for pneumonia/ heart failure, who is followed from a cardiac perspective by Dr. Magaña in [place], admitted 10/29/17 with chest pain and ruled in for non ST elevation myocardial infarction (initially negative troponin increased to a peak of 20). The patient denied any chest pain overnight or this morning. She still has some abdominal cramping with diarrhea. She also noted mild epistaxis which since stopped as well as a small hematoma left forearm. No dyspnea, lightheadedness, or presyncope. PHYSICAL EXAMINATION: No distress, sitting quietly. Vitals: Afebrile. BP 152/84, pulse 92 and irregular, respirations 16 and unlabored. Skin: No unusual lesions, does have scattered ecchymoses and a hematoma left forearm.. HEENT: Scant blood nasopharynx, no active bleeding. Oropharynx benign.. Neck: Jugular venous pulse 1/[address] to the angle of the jaw at 30 degrees , no carotid bruits. Lungs: Mildly decreased breath sounds but generally clear. No wheezing or crackles. Cardiac: Irregular but non tachycardic rhythm, 2/6 apical holosystolic murmur radiating to the axilla, no obvious gallop or diastolic murmur. Abdomen: Mild epigastric tenderness, otherwise benign. Extremities: Nontender with 1+ pretibial edema. Intact peripheral pulses. Neurologic: Normal affect, nonfocal DATA: ECG this morning showed atrial fibrillation with ventricular rate of 81 bpm, right bundle branch block, left anterior fascicular block, minor ST abnormalities ([address] depression lateral leads. No change from prior ECGs. Troponin peaked at 20 before declining to 17 yesterday. Today's labs with normal electrolytes, BUN 27, creatinine 1.11. Normal white count and hemoglobin with platelet count of 610698. PTT 57.7 on heparin. Echocardiogram yesterday with preserved systolic function (EF 60-65 %), flattened septum consistent with RV pressure/volume overload, small area of inferobasal deformity hypokinesis (small infarct versus anatomic variant), all other workman move normally. Mild to moderate mitral and tricuspid regurgitation with mild pulmonary hypertension. IMPRESSION: 1. Non ST elevation myocardial infarction 10/29, symptom free currently. 2. Known coronary artery disease, status post CABG 1999, followed by Dr. Magaña 3. Paroxysmal atrial fibrillation, likely persistent in recent months (was on apixaban and carvedilol as an outpatient) 4. Recent hospitalization for pneumonia/CHF, details unknown. 5. Diabetes mellitus 6. Hypertension 7. Recent diarrhea 8. Transient epistaxis 9. Mild thrombocytopenia 10. Multiple other medical problems as noted. DISCUSSION: Patient with known coronary artery disease status post prior revascularizations (including remote CABG) presented on 10/29 with acute chest pain and ruled in for myocardial infarction with no obvious ECG changes. Currently, her hemodynamics are favorable and she has had no chest pain for the past 48 hours. Echocardiogram showed preserved systolic function with only a small inferobasal wall motion abnormality (which was more suggestive of an old small infarct or anatomic variant), no obvious new wall motion abnormalities. She had been receiving aspirin and is now off oral apixaban and on intravenous heparin, she is already on a statin and a beta-mitra. 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 Will arrange for transfer to [facility] for further care and possible cardiac catheterization. She was loaded with ticagrelor, given her epistaxis and mild thrombocytopenia, may need to consider stopping her heparin (will be interrupted for her cardiac catheterization, could re-evaluate need for ongoing anticoagulation at that time ). In regards to her atrial fibrillation, her rate is well controlled on carvedilol long and she is anticoagulated with heparin currently (apixaban longer term). Patient's care was discussed with Dr. Bueno.
[2017-10-31] MEDS ORDERED: OXYMETAZOLINE HCL 0.05% NA SPR 15 ML BTL ONE (10:00)
[2017-10-31] MEDS ORDERED: BRL90 PO (10:07)
[2017-10-31] MEDS ORDERED: CRG125 PO (10:07)
--- NOTE | 2017-10-31 10:09 | Discharge Instructions ---
Discharge Instructions Date of Service Oct 31, 2017. Admission Reason for Admission: Chest Pain Discharge Discharge Diagnosis / Problem: NSTEMI Discharge Goals Goal(s): Improve disease control, Diagnostic testing, Therapeutic intervention Activity Recommendations Activity Limitations: as noted below Exercise/Sports Limitations: rest today . Instructions / Follow-Up Instructions / Follow-Up Transferred acutely to [facility]: * Take your medications exactly as directed. Don't skip doses. * Remember that recovery after a heart attack takes time. Plan to rest for at lease 4-8 weeks while you recover. Then return to normal activity when your doctor says it's okay. * Ask your doctor about joining a heart rehabilitation program. * Tell your doctor if you are feeling depressed. Feelings of sadness are common after a heart attack, but it is important that you speak to someone if you are feeling overwhelmed by these feelings. * If you are having chest pain, call 911 for an ambulance. Do NOT drive yourself to the hospital. * Ask your family members to learn CPR. * Learn to take your own blood pressure and pulse. Keep a record of your results. Ask your doctor when you should seek emergency medical attention. He or she will tell you which blood pressure reading is dangerous. Lifestyle Changes: * Maintain a healthy weight. Get help to lose any extra pounds. * Cut back on salt. * Limit canned, dried, packaged, and fast foods. * Don't add salt to your food. * Season foods with herbs instead of salt when you cook. * Break the smoking habit. Enroll in a stop-smoking program to improve your chances of success. * Limit fatty foods. * Ask your doctor about having your lipid levels checked regularly. * Build up your activity according to your doctor's recommendation. * Ask your doctor when it's okay to resume sexual activity. * Try to manage stress. Follow Up: It is important for you to keep your follow up appointments with your medical provider. Current Hospital Diet Patient's current hospital diet: Low Sodium Diet (2gm Na), Diabetes Type 2 Diet , AHA Diet (Heart Healthy) Discharge Diet Recommended Diet: N/A (N.p.o. currently) Procedures Procedures Performed: Echocardiogram Chest x-ray KUB Pending Studies Studies pending at discharge: no Laboratory Results Last 24 Hours Test 10/30/17 10:57 4/8/18 12:06 10/30/17 16:31 10/30/17 16:52 White Blood Count 9.78 K/uL Red Blood Count 4.22 M/uL Hemoglobin 11.6 g/dL Hematocrit 36.1 % Mean Corpuscular Volume 85.5 fL Mean Corpuscular Hemoglobin 27.5 pg Mean Corpuscular Hemoglobin Concent 32.1 g/dl RDW Standard Deviation 46.1 fL RDW Coefficient of Variation 14.8 % Platelet Count 129 K/uL Mean Platelet Volume 9.4 fL Lactic Acid Level 1.5 mmol/L Troponin I 20.200 ng/ml 17.600 ng/ml Bedside Glucose 200 mg/dl 269 mg/dl Activated Partial Thromboplast Time 67.5 SECONDS Partial Thromboplastin Ratio 2.6 Test 10/30/17 20:01 10/31/17 00:00 10/31/17 00:16 10/31/17 07:04 Bedside Glucose 208 mg/dl 106 mg/dl Activated Partial Thromboplast Time 57.7 SECONDS Partial Thromboplastin Ratio 2.2 White Blood Count 7.05 K/uL Red Blood Count 4.35 M/uL Hemoglobin 12.0 g/dL Hematocrit 37.2 % Mean Corpuscular Volume 85.5 fL Mean Corpuscular Hemoglobin 27.6 pg Mean Corpuscular Hemoglobin Concent 32.3 g/dl Platelet Count 114 K/uL Mean Platelet Volume 9.2 fL Neutrophils (%) (Auto) 66.9 % Lymphocytes (%) (Auto) 22.4 % Monocytes (%) (Auto) 7.5 % Eosinophils (%) (Auto) 2.6 % Basophils (%) (Auto) 0.3 % Neutrophils # (Auto) 4.72 K/uL Lymphocytes # (Auto) 1.58 K/uL Monocytes # (Auto) 0.53 K/uL Eosinophils # (Auto) 0.18 K/uL Basophils # (Auto) 0.02 K/uL RDW Standard Deviation 46.8 fL RDW Coefficient of Variation 15.1 % Immature Granulocyte % (Auto) 0.3 % Immature Granulocyte # (Auto) 0.02 K/uL Sodium Level 136 mmol/L Potassium Level 3.8 mmol/L Chloride Level 99 mmol/L Carbon Dioxide Level 31 mmol/L Anion Gap 6.0 mmol/L Blood Urea Nitrogen 27 mg/dl Creatinine 1.11 mg/dl Est Creatinine Clear Calc Drug Dose 53.5 ml/min Estimated GFR () 56.7 Estimated GFR (Non- 48.9 BUN/Creatinine Ratio 24.1 Random Glucose 144 mg/dl Calcium Level 9.2 mg/dl Magnesium Level 2.1 mg/dl Test 10/31/17 07:24 10/31/17 09:45 Bedside Glucose 152 mg/dl 181 mg/dl Hemoglobin A1c Test 10/30/17 04:57 Range/Units Estimated Average Glucose 258 mg/dl Hemoglobin A1c 10.6 H 4.5-5.6 % Lipid Panel Test 10/30/17 04:57 Range/Units Triglycerides Level 112 0-150 mg/dl Cholesterol Level 98 0-200 mg/dl HDL Cholesterol 34 mg/dl Cholesterol/HDL Ratio 2.9 LDL Cholesterol, Calculated 42 mg/dl Medical Emergencies . Who to Call and When: Medical Emergencies: If at any time you feel your situation is an emergency, please call 911 immediately. Call 911 immediately or go to your nearest Emergency Room if you experience any of the following: Warning Signs and Symptoms of a Heart Attack * Chest pain that is not relieved by medication * Shortness of breath . Non-Emergent Contact Non-Emergency issues call your: Primary Care Provider, Spray Drier Operator . . "Provider Documentation" section prepared by Melissa Bueno. . AMI Core Measures Reason no ASA as I/P: Treatment provided - N/A Reason no ASA at D/C: Treatment provided - N/A Reason no statin as I/P: Treatment provided - N/A Reason no statin at D/C: Treatment provided - N/A
[2017-10-31] MEDS: ONDANSETRON INJ 2 MG/ML 2 ML VIAL IV PRN (10:25)
--- NOTE | 2017-10-31 11:21 | Discharge Summary ---
Discharge Summary Date of Service Oct 31, 2017. Discharge Summary Admission Date: Oct 30, 2017 at 19:14 Discharge Date: Oct 31, 2017 Discharge Disposition: Acute care facility Principal Diagnosis: NSTEMI Problems/Secondary Diagnoses: CAD S/P CABG and stents Chronic A. fib on Eliquis DM 2, on long-term insulin Chronic diastolic CHF Pulmonary hypertension GERD Long-term anticoagulation Chronic RBBB, LAFB HTN Major depressive disorder/generalized anxiety disorder Lower abdominal pain with diarrhea-resolved Epistaxis Procedures: Echocardiogram: * The left ventricle is normal in size. * Left ventricular systolic function is normal. * Ejection Fraction = 60-65%. * Flattened septum is consistent with RV pressure/volume overload. * Small area of inferobasal deformity and hypokinesis, small infarct vs. anatomic variant. All other workman move normally. * The right ventricle is moderately dilated. * The right ventricular systolic function is moderately reduced. * There is moderate mitral annular calcification. * There is mild to moderate mitral regurgitation. * The left atrium is moderately dilated. * There is mild to moderate tricuspid regurgitation. * Right ventricular systolic pressure is elevated at 30-40mmHg. * Mild pulmonic valvular regurgitation. * End diastolic TN jet velocity of 1.4 m/s is consitent with mildly elevated PA end diastolic pressure. * The inferior vena cava is moderately dilated. Chest x-ray KUB Consultations: Cardiology Medication Reconciliation New Medications: Carvedilol (Carvedilol) 12.5 Mg Tab 12.5 MG PO BID for 30 Days, #60 TAB Ticagrelor (Brilinta) 90 Mg Tab 90 MG PO BID@0600,1800 for 30 Days, TAB Continued Medications: Aspirin (Aspirin Chewable) 81 Mg Chew 81 MG PO QAM Atorvastatin (Lipitor) 80 Mg Tab 80 MG PO HS Famotidine (Pepcid) 20 Mg Tab 20 MG PO BID Furosemide (Lasix) 40 Mg Tab 40 MG PO BID, TAB Insulin Human NPH (Novolin N) 100 Units/Ml Susp 25 UNITS SQ BID Isosorbide Mononitrate Ext Rel (Imdur Ext Rel) 60 Mg Ertab 60 MG PO QAM Lisinopril (Zestril) 20 Mg Tab 20 MG PO QAM, TAB Lorazepam (Ativan) 1 Mg Tab 1 MG PO BID Nitroglycerin (Nitrostat) 0.4 Mg Tab 1 TAB SL UD PRN for CHEST PAIN, #100 TAB 3 Refills Potassium Chloride (Micro-K Ext Rel) 10 Meq Capcr 10 MEQ PO BID Sertraline (Zoloft) 50 Mg Tab 50 MG PO BID Discontinued Medications: Apixaban (Eliquis) 5 Mg Tab 5 MG PO BID, TAB Carvedilol (Coreg) 6.25 Mg Tab 6.25 MG PO QAM, TAB Fish Oil ([place]-3) 1 Ea Cap 1 CAP PO BID Discharge Exam Patient still having a mild headache and has Nitropaste on. She also has developed some mild epistaxis since being on the Brilinta and heparin drip. It is dripping into her throat and causing irritation. Denies any chest pain, denies shortness of breath. Telemetry with atrial fibrillation with rates in the 60s-90s, with bursts to the 140s at times with activity, some bigeminy and PVC couplets Physical Exam General Appearance: WD/WN, no apparent distress, + obese Eyes: normal inspection, sclerae normal ENT: hearing grossly normal, small amount of fresh blood in the left nostril but is not actively dripping Neck: trachea midline Respiratory/Chest: no respiratory distress, no accessory muscle use, no crackles Cardiovascular: no murmur, + irregularly irregular (With normal rate) Abdomen: normal bowel sounds, non tender, soft (And obese) Extremities: no calf tenderness, + swelling (Trace pitting edema to the knees bilaterally) Neurologic/Psychiatric: alert, anxious Skin: normal color, warm/dry, no rash Review of Systems: Constitutional: No fever, No chills Eyes: No problem reported ENT: + problem reported (Epistaxis) Respiratory: No shortness of breath Cardiovascular: No chest pain Abdomen: No pain, No nausea, No vomiting, No diarrhea, No constipation, No GI bleeding Musculoskeletal: No problem reported Genitourinary - Female: No problem reported Neurologic: No problem reported Psychiatric: + anxiety Endocrine: No problem reported Hematologic / Lymphatic: No problem reported Integumentary: No problem reported Hospital Course This patient is a 72-year-old female with history of CAD S/P CABG and stents, chronic A. fib on Eliquis, DM 2, chronic diastolic CHF, GERD, who presented with left-sided chest pain, found to have NSTEMI. NSTEMI/chest pain/CAD with history of CABG and stents-serial troponin trended upward and peaked at 20, now is back down to 17.. ECGs without evidence of ischemia but with bifascicular block and RBBB, some nonspecific ST changes in the lateral leads. Echocardiogram with small inferobasal hypokinesis, mild to moderate TR, mild pulmonary hypertension, LVEF 60-65% -Patient being transferred to [facility] for continuity of care where her vessel builder is in all her prior procedures-she needs diagnostic and possible therapeutic cardiac catheterization today -She was loaded with Brilinta 180 mg p.o. 1 yesterday, and remains on Brilinta 90 mg p.o. twice daily -Remains on heparin drip -continue on aspirin, carvedilol,atorvastatin, as well as Imdur -Continue on telemetry to monitor for cardiac arrhythmia -Holding Eliquis while on heparin drip now in preparation for cardiac cath -Is currently n.p.o. in case a procedure today Acute on chronic diastolic CHF-some JVD today, but asymptomatic otherwise -Continue furosemide 40 mg p.o. twice daily, no need for IV diuresis at this time -Continue carvedilol. -Continue I's and O's and daily weight, low-sodium diet, fluid restrict to 1800 mL's per day Chronic atrial fibrillation on Eliquis. She remains in atrial fibrillation. Rate is controlled. She was seen 1 week ago in the office by Dr. Magaña [facility] cardiology and he apparently is planning on trying a cardioversion in the near future -continue her on carvedilol -Holding Eliquis and continuing heparin drip as above Diabetes mellitus type 2, on long-term insulin, uncontrolled-hemoglobin A1c here is 10.6%. -Patient is on NPH insulin twice daily at home. --NPH was held this morning as she is n.p.o. -Sliding scale insulin only is ordered right now -Needs improved control as an outpatient GERD-stable -Continue Pepcid Major depressive disorder/generalized anxiety disorder-stable but anxious in the setting of acute TN -Continue sertraline, Ativan as needed DVT prophylaxis will be with SCDs and teds and heparin drip Stable for transfer to [facility] Total Time Spent: Greater than 30 minutes This includes examination of the patient, discharge planning, medication reconciliation, and communication with other providers. Discharge Instructions Please refer to the electronic Patient Visit Report (Discharge Instructions) for additional information. Follow-Up With PCP within 1-2 weeks after discharge With cardiology as directed Additional Copies To Kristian Zaragoza D.O.
--- NOTE | 2017-10-31 13:55 | Pharmacy Progress Note ---
Glycemic: Assessment & Plan Date of Service Oct 31, 2017. Assessment & Plan The patient is currently receiving ~51 units of insulin per day. BSGs ranging 200 - 152 mg/dl over the past 24hrs. * Basal insulin: NPH 10units BIDM while NPO * Correctional Insulin: Novolog Correction per scale ACHS Goal Range: Low 120 mg/dL - High 160 mg/dL Correction Factor: 25 mg/dL/unit * Prandial insulin: Per carb ratio of 1 unit per 8 grams CHO consumed BSGs continue to improve, no changes needed to inpatient regimen at this time. Pharmacy will continue to monitor patient daily and write orders per [facility] inpatient glycemic control protocol. Thanks. * Please note that the plan above was derived based on current level of insulin resistance and hospital stress. These recommendations are appropriate for inpatient admission only. Plan of care upon discharge will need to be reassessed to avoid potential outpatient hypo/hyperglycemia.
[2017-10-31] MEDS ORDERED: INSULIN ASPART 100 UNITS/ML 3 ML PEN SC SCH (18:00)
== END 2017-10-31 17:38 | disposition short-term general hospital (02) | DRG 280 ==
LOC: EDBD 10:35 → C.EDC 10:37 → C.MED 14:32 → ENRESERV 15:11 → OBSVTOIN 10-30 19:14
PROVIDERS: ADMIT Family Medicine; ATTEND Family Medicine
DX: I21.4 Non-ST elevation (NSTEMI) myocardial infarction (principal); I50.33 Acute on chronic diastolic (congestive) heart failure; I45.2 Bifascicular block; I11.0 Hypertensive heart disease with heart failure; I25.10 Atherosclerotic heart disease of native coronary artery without angina pectoris; I48.2 Chronic atrial fibrillation; R19.7 Diarrhea, unspecified; R04.0 Epistaxis; E11.9 Type 2 diabetes mellitus without complications; K21.9 Gastro-esophageal reflux disease without esophagitis; F32.9 Major depressive disorder, single episode, unspecified; F41.1 Generalized anxiety disorder; E78.5 Hyperlipidemia, unspecified; Z99.81 Dependence on supplemental oxygen; Z95.5 Presence of coronary angioplasty implant and graft; Z95.1 Presence of aortocoronary bypass graft; Z95.820 Peripheral vascular angioplasty status with implants and grafts; Z87.01 Personal history of pneumonia (recurrent); Z79.01 Long term (current) use of anticoagulants; Z79.4 Long term (current) use of insulin; Z79.82 Long term (current) use of aspirin; Z79.899 Other long term (current) drug therapy; Z88.0 Allergy status to penicillin; Z88.1 Allergy status to other antibiotic agents; Z91.048 Other nonmedicinal substance allergy status; Z82.49 Family history of ischemic heart disease and other diseases of the circulatory system; Z83.3 Family history of diabetes mellitus; Z83.6 Family history of other diseases of the respiratory system; Z90.49 Acquired absence of other specified parts of digestive tract; Z90.710 Acquired absence of both cervix and uterus; Z96.1 Presence of intraocular lens